=== PATIENT | female | born 1980 | race Caucasian/White ===

== ENCOUNTER 2019-10-13 18:02 | Emergency (ER) | payer SELFPAY ==
[2019-10-13 18:06] VITALS: BP 124/58; PULSE 84; RESP 18; TEMP 36.4; O2SAT 97; BMI 29.0
--- NOTE | 2019-10-13 18:16 | W.ED.ABDPA2 ---
HPI - Abdominal Pain General: Chief Complaint: Abdominal Pain Stated Complaint: abd pain Time Seen by Provider: 10/13/19 18:14 History of Present Illness: HPI narrative: Patient is a 31-year-old female comes to the ED with abdominal pain and nausea. Past surgical history of and tubal ligation. Denies any appendectomy or cholecystectomy. patient says symptoms started today. Abdominal pain is located in the RLQ of the abdomen. She rates the pain currently an 8 out of 10. She has had some nausea since onset of abdominal pain. She does endorse decreased appetite. She is had the chills but no fever. Denies any bladder or bowel symptoms, chest pain or shortness of breath. Associated Symptoms: Reports chills and nausea; Denies constipation, diarrhea, dysuria, fever(s), hematochezia, hematuria and vomiting Review of Systems Const: Reports: chills and change in appetite (decreased appetite); Denies: fever(s) or fatigue Eyes: Denies: change in vision or eye discomfort ENMT: Denies: throat pain, odynophagia, nasal discharge or nasal congestion Card: Denies: chest pain, palpitations, edema, swelling of feet/ankles, dyspnea on exertion or orthopnea Resp: Denies: dyspnea, productive cough or non-productive cough GI: Reports: abdominal pain and nausea; Denies: vomiting, diarrhea, constipation or hematochezia : Denies: flank pain, dysuria or hematuria Musc: Denies: neck pain, back pain or extremity swelling Skin/Breast: Denies: rash or new lesions Neuro: Denies: headache(s), numbness in extremities or weakness in extremities PFS ED PFSH: Social History Smoking and tobacco status: never smoked Alcohol intake: former Physical Exam Const: COMMON NORMALS: no acute distress, patient oriented x3 and alert GENERAL APPEARANCE: cooperative and well hydrated HENMT: COMMON NORMALS: normocephalic HEAD & SCALP: normocephalic MOUTH: Normal oral and palatal mucosa present THROAT: posterior oropharynx normal and uvula midline Eye: COMMON NORMALS: Equal, round and reactive pupils present PUPIL: Yes Equal, round and reactive pupils present Neck/C-Spine: COMMON NORMALS: supple GENERAL: Yes normal visual inspection Lymph: LYMPHATIC: no lymphadenopathy noted (No cervical lymphadenopathy palpated.) Resp: COMMON NORMALS: normal respiratory effort, No retractions, No use of accessory muscles and clear to auscultation bilaterally EFFORT & INSPECTION: Yes able to speak in complete sentences and No respiratory distress AUSCULTATION: clear to auscultation bilaterally Cardio: COMMON NORMALS: regular rate, regular rhythm, S1 normal heart sound present, S2 normal heart sound present, No gallops present (Cardio), No clicks present (Cardio), No murmurs present (Cardio) and Peripheral pulses 2+ throughout RATE: regular rate RHYTHM: regular rhythm HEART SOUNDS: S1 normal heart sound present and S2 normal heart sound present PERIPHERAL PULSES: Peripheral pulses 2+ throughout GI: COMMON NORMALS: Normal to inspection, nondistended, normoactive bowel sounds present, Soft to palpation and no masses AUSCULTATION: Yes normoactive bowel sounds PALPATION: Yes Soft to palpation and Yes Tenderness to palpation present (GI) Details: RLQ (Moderate right lower quadrant tenderness. Positive McBurney's point.) : COMMON NORMALS: Yes no CVA tenderness BLADDER/KIDNEY EXAM: Yes no CVA tenderness Back/Pelvis: COMMON NORMALS: no CVA tenderness Extremity: COMMON NORMALS: normal to inspection and no pedal edema Neuro: COMMON NORMALS: patient oriented x3 SENSORIUM/ORIENTATION: Yes alert GAIT: Yes Normal gait present Skin: COMMON NORMALS: no rashes or lesions noted GENERAL SKIN EXAM: no rashes or lesions noted and dry skin Course Vital Signs: Vital signs: Vital Signs Temperature 97.6 F 10/13/19 18:06 Pulse Rate 74 10/13/19 19:12 Respiratory Rate 17 10/13/19 19:12 Blood Pressure 111/36 10/13/19 19:12 Pulse Oximetry 98 10/13/19 19:12 MDM - Abdominal Pain MDM Narrative: Medical decision making narrative: Patient is a 39-year-old female comes to the ED with abdominal pain and nausea. Abdominal pain was in the right lower quadrant. Positive McBurney's point. CBC showed white blood cell count of 10.7 and CMP and UA were unremarkable. hCG serum was negative as well. CT of the abdomen showed a average of a right ovarian cyst with little free fluid in the pelvis. Patient's pain and nausea improved with IV fluids, Zofran and morphine. Patient was discharged and diagnosed with hemorrhagic right ovarian cyst. Patient will see her PCP and 7 days for reevaluation. Patient was told she can come back to the ED if symptoms worsen. Patient understood and agreed with plan. Lab Data: Attestation: I reviewed the patient's lab results. Labs: Lab Results 10/13/19 10/13/19 10/13/19 Range/Units 18:30 18:30 18:30 WBC 10.7 H (4.0-10.0) 10^3/ uL RBC 4.69 (4.1-5.3) 10^6/u L Hgb 14.1 (11.5-15.3) g/dL Hct 42.4 (37.0-47.0) % MCV 90.4 (81-99) fL MCH 30.1 (28.0-34.0) pg MCHC 33.3 (30.0-36.0) g/dL RDW 13.3 (12.1-15.1) % Plt Count 284 (130-400) 10^3/c mm MPV 10.6 H (7.4-10.4) fL Neut % (Auto) 63.8 % Lymph % (Auto) 28.6 % [place] % (Auto) 6.0 % Eos % (Auto) 0.7 % Baso % (Auto) 0.3 % Neut # (Auto) 6.9 (1.8-7.7) 10^3/u L Lymph # (Auto) 3.1 (0.8-4.8) 10^3/u L [place] # (Auto) 0.6 (0.2-0.9) 10^3/u L Eos # (Auto) 0.1 (0.0-0.8) 10^3/u L Baso # (Auto) 0.0 (0.0-0.1) 10^3/u L Nucleated RBC % (a uto) 0 % Nucleated RBCs # 0.0 /100WBC Sodium 140 (136-145) mmol/L Potassium 4.0 (3.5-5.1) mmol/L Chloride 102 (98-107) mmol/L Carbon Dioxide 24 (22-29) mmol/L Anion Gap 18.0 (5-19) BUN 14 (6-20) mg/dL Creatinine 0.7 (0.5-0.9) mg/dL GFR Calculation 93.6 (90-130) mL/min Glucose 92 (65-115) mg/dL Calculated Osmolal ity 286 (285-295) mOsm/k g Calcium 10.1 (8.5-10.5) mg/dL Total Bilirubin 0.3 (0.15-1.2) mg/dL AST 13 (0-32) U/L ALT 11 (0-33) U/L Alkaline Phosphata se 70 (35-105) IU/L Total Protein 8.0 (6.6-8.7) g/dL Albumin 4.6 (3.5-5.2) g/dL Globulin 3.4 (1.3-4.6) g/dL Lipase 29 (13-60) U/L HCG, Qual Negative (Negative) Urine Color (Yellow) Urine Appearance (CLEAR) Urine pH (5-7) Ur Specific Gravit y (1.005-1.030) Urine Protein (Negative) Urine Glucose (UA) (Normal) Urine Ketones (Negative) Urine Blood (Negative) Urine Nitrate (Negative) Urine Bilirubin (NEGATIVE) Urine Urobilinogen (Negative) mg/dL Ur Leukocyte Soni ase (Negative) Urine RBC (0-2) /hpf Urine WBC (0-5) /hpf Ur Squamous Epith Cells (0-5) Urine Bacteria (NONE) Urine Mucus 10/13/19 Range/Units 19:15 WBC (4.0-10.0) 10^3/ uL RBC (4.1-5.3) 10^6/u L Hgb (11.5-15.3) g/dL Hct (37.0-47.0) % MCV (81-99) fL MCH (28.0-34.0) pg MCHC (30.0-36.0) g/dL RDW (12.1-15.1) % Plt Count (130-400) 10^3/c mm MPV (7.4-10.4) fL Neut % (Auto) % Lymph % (Auto) % [place] % (Auto) % Eos % (Auto) % Baso % (Auto) % Neut # (Auto) (1.8-7.7) 10^3/u L Lymph # (Auto) (0.8-4.8) 10^3/u L [place] # (Auto) (0.2-0.9) 10^3/u L Eos # (Auto) (0.0-0.8) 10^3/u L Baso # (Auto) (0.0-0.1) 10^3/u L Nucleated RBC % (a uto) % Nucleated RBCs # /100WBC Sodium (136-145) mmol/L Potassium (3.5-5.1) mmol/L Chloride (98-107) mmol/L Carbon Dioxide (22-29) mmol/L Anion Gap (5-19) BUN (6-20) mg/dL Creatinine (0.5-0.9) mg/dL GFR Calculation (90-130) mL/min Glucose (65-115) mg/dL Calculated Osmolal ity (285-295) mOsm/k g Calcium (8.5-10.5) mg/dL Total Bilirubin (0.15-1.2) mg/dL AST (0-32) U/L ALT (0-33) U/L Alkaline Phosphata se (35-105) IU/L Total Protein (6.6-8.7) g/dL Albumin (3.5-5.2) g/dL Globulin (1.3-4.6) g/dL Lipase (13-60) U/L HCG, Qual (Negative) Urine Color Yellow (Yellow) Urine Appearance Hazy A (CLEAR) Urine pH 6 (5-7) Ur Specific Gravit y 1.020 (1.005-1.030) Urine Protein Neg (Negative) Urine Glucose (UA) Norm (Normal) Urine Ketones Negative (Negative) Urine Blood 2+ H (Negative) Urine Nitrate Negative (Negative) Urine Bilirubin Neg (NEGATIVE) Urine Urobilinogen Neg (Negative) mg/dL Ur Leukocyte Soni ase Negative (Negative) Urine RBC 0-4 H (0-2) /hpf Urine WBC 0-4 H (0-5) /hpf Ur Squamous Epith Cells 15-25 H (0-5) Urine Bacteria 1+ H (NONE) Urine Mucus 2+ Imaging Data ^: CT Abd/Pel: Attestation: I personally reviewed and interpreted this imaging study as follows: Radiologist's impression: [address] [address] [address] Scan Report Signed Patient: Olga Zavaleta Unit #: [id number] : 1980 Age/Sex: 39 / F ADM Date: 10/13/19 Loc: ER Room/Bed: Attending Dr: Ordering Provider/Ordering MD: Froilan Calhoun Date of Service: 10/13/19 Procedure(s): CT abdomen pelvis w con* [id number] Accession Number(s): [id number] Report Number: [id number] PROCEDURE INFORMATION: Exam: CT Abdomen And Pelvis With Contrast Exam date and time: 10/13/2019 7:33 PM Age: 39 years old Clinical indication: Abdominal pain; Localized; Right lower quadrant (rlq); Patient HX: Rlq/r groin pain and nausea; Additional info: Rlq tenderness with nausea TECHNIQUE: Imaging protocol: Computed tomography of the abdomen and pelvis with intravenous contrast. Radiation optimization: All CT scans at this facility use at least one of these dose optimization techniques: automated exposure control; mA and/or kV adjustment per patient size (includes targeted exams where dose is matched to clinical indication); or iterative reconstruction. Contrast material: OMNI 300; Contrast volume: 95 ml; Contrast route: 20G COMPARISON: CT abdomen pelvis w con* [id number] 10/19/2018 8:22 PM FINDINGS: There is small complex structure in right adnexal region which may represent hemorrhagic ovarian cyst. There is tiny amount of free fluid in the pelvis . There are small rounded hypodense structures in each kidney, most compatible with simple-appearing cysts. No specific follow-up imaging is recommended. Liver, spleen, pancreas, and adrenal glands appear unremarkable. Appendix appears grossly unremarkable. Bowel loops do not appear significantly dilated. Abdominal aorta does not appear dilated. There is small fat-containing umbilical hernia. Visualized lung bases demonstrate no significant opacification. CT/CT abdomen pelvis w con* [id number] IMPRESSION: There is small complex structure in right adnexal region which may represent hemorrhagic ovarian cyst. There is tiny amount of free fluid in the pelvis . Total DLP: 1015.67 mGy-cm Radiation Dose CTDIVOL = (mGy): DLP = 1015.67 (mGy-cm) Dictated By: Forrest Ken MD Signed By: Forrest Ken MD Signed Date/Time: 10/13/192039 DD/ 30 Discharge Plan Discharge Patient Disposition: Home, Self-Care Clinical Impression: Hemorrhagic cyst of right ovary Condition: Stable Prescriptions: No Action methylprednisolone [Medrol (Jose)] 4 mg tablets,dose pack See Rx Instructions PO PER PKG DIR Qty: 21 RF: 0 celecoxib [Celebrex] 200 mg capsule 200 mg PO DAILY Qty: 30 RF: 1 tizanidine 4 mg tablet 4 mg PO .qhs PRN (Reason: muscle spasticity) Qty: 30 RF: 1 Discharge Orders: Discharge Order (Routine); Ordered 10/13/19 Ordered By: Froilan Calhoun Referrals: Mirela Evans MD [Primary Care Provider] - Discharge Diet: Regular Discharge Activity: Increase activity as tolerated Patient Instructions: Ovarian Cyst (ED) Activity Restrictions/Additional Instructions: Call your primary care provider on Wednesday to set up an appointment for reevaluation within the next week. Take ibuprofen or Tylenol for pain. You can apply cold pack on abdomen to help with symptoms. Drink plenty of fluids and stay hydrated. Return to the ED if symptoms worsen. 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
[2019-10-13] MEDS: sodium chloride 0.9% 1,000 ML 999 ML IV (18:32)
[2019-10-13] MEDS: ondansetron 2 mg/ML SDV 2 mL 4 MG IVP (18:33)
[2019-10-13 18:42] LABS: Basophils % 0.3 %; Eosinophils # 0.1 10^3/uL (0.0-0.8); Eosinophils % 0.7 %; Hematocrit 42.4 % (37.0-47.0); Hemoglobin 14.1 g/dL (11.5-15.3); Lymphocytes # 3.1 10^3/uL (0.8-4.8); Lymphocytes % 28.6 %; Mean Corpuscular HGB Conc 33.3 g/dL (30.0-36.0); Mean Corpuscular Hemoglobin 30.1 pg (28.0-34.0); Mean Corpuscular Volume 90.4 fL (81-99); Mean Platelet Volume 10.6 fL (7.4-10.4); Monocytes # 0.6 10^3/uL (0.2-0.9); Neutrophils # 6.9 10^3/uL (1.8-7.7); Neutrophils % 63.8 %; Nucleated Red Blood Cells % 0 %; Platelet Count 284 10^3/cmm (130-400); Red Blood Count 4.69 10^6/uL (4.1-5.3); Red Cell Distribution Width 13.3 % (12.1-15.1); White Blood Count 10.7 10^3/uL (4.0-10.0)
--- NOTE | 2019-10-13 19:01 | CTR_ITS ---
PROCEDURE INFORMATION: Exam: CT Abdomen And Pelvis With Contrast Exam date and time: 10/13/2019 7:33 PM Age: 39 years old Clinical indication: Abdominal pain; Localized; Right lower quadrant (rlq); Patient HX: Rlq/r groin pain and nausea; Additional info: Rlq tenderness with nausea TECHNIQUE: Imaging protocol: Computed tomography of the abdomen and pelvis with intravenous contrast. Radiation optimization: All CT scans at this facility use at least one of these dose optimization techniques: automated exposure control; mA and/or kV adjustment per patient size (includes targeted exams where dose is matched to clinical indication); or iterative reconstruction. Contrast material: OMNI 300; Contrast volume: 95 ml; Contrast route: 20G COMPARISON: CT abdomen pelvis w con* [id number] 10/19/2018 8:22 PM FINDINGS: There is small complex structure in right adnexal region which may represent hemorrhagic ovarian cyst. There is tiny amount of free fluid in the pelvis . There are small rounded hypodense structures in each kidney, most compatible with simple-appearing cysts. No specific follow-up imaging is recommended. Liver, spleen, pancreas, and adrenal glands appear unremarkable. Appendix appears grossly unremarkable. Bowel loops do not appear significantly dilated. Abdominal aorta does not appear dilated. There is small fat-containing umbilical hernia. Visualized lung bases demonstrate no significant opacification. CT/CT abdomen pelvis w con* [id number] IMPRESSION: There is small complex structure in right adnexal region which may represent hemorrhagic ovarian cyst. There is tiny amount of free fluid in the pelvis . Total DLP: 1015.67 mGy-cm Radiation Dose CTDIVOL = (mGy): DLP = 1015.67 (mGy-cm)
[2019-10-13 19:10] VITALS: RESP 18
[2019-10-13] MEDS: morphine 4 mg/mL SDV 1 mL IVP (19:10)
[2019-10-13 19:12] VITALS: BP 111/36; PULSE 74; RESP 17; O2SAT 98
[2019-10-13 19:23] LABS: HCG, Serum Qual Negative (Negative)
[2019-10-13 19:31] LABS: Alanine Aminotransferase 11 U/L (0-33); Albumin Level 4.6 g/dL (3.5-5.2); Alkaline Phosphatase 70 IU/L (35-105); Aspartate Amino Transferase 13 U/L (0-32); Blood Urea Nitrogen 14 mg/dL (6-20); Calcium 10.1 mg/dL (8.5-10.5); Carbon Dioxide 24 mmol/L (22-29); Chloride 102 mmol/L (98-107); Globulin 3.4 g/dL (1.3-4.6); Glomerular Filtration Rate 93.6 mL/min (90-130); Glucose 92 mg/dL (65-115); Lipase 29 U/L (13-60); Osmolality Calculated 286 mOsm/kg (285-295); Sodium 140 mmol/L (136-145); Total Bilirubin 0.3 mg/dL (0.15-1.2)
[2019-10-13] MEDS: iohexol 300 mg/mL 100 mL Btl IV (19:40)
[2019-10-13 19:59] LABS: Urine Appearance Hazy (CLEAR); Urine Color Yellow (Yellow)
[2019-10-13 20:00] LABS: Add Urine Culture? No; Bacteria Urine 1+; Bilirubin Urine Neg (NEGATIVE); Blood Urine 2+ (Negative); Glucose Urine UA Norm (Normal); Ketones Urine Negative (Negative); Leukocyte Esterase Urine Negative (Negative); Mucus Urine 2+; Nitrate Urine Negative (Negative); Protein Urine Neg (Negative); RBC Urine 0-4 /hpf (0-2); Squamous Epithelial Cell Urine 15-25 (0-5); Urobilinogen Urine Neg (Negative); WBC Urine 0-4 /hpf (0-5); pH Urine 6 (5-7)
[2019-10-13 21:00] VITALS: BP 117/69; PULSE 76; RESP 20; O2SAT 99
== END 2019-10-13 21:00 | disposition home or self-care (01) ==
PROVIDERS: Emergency Provider Physician Assistant; PCP Family Medicine
DX: N83.201 Unspecified ovarian cyst, right side (principal)
CPT/HCPCS: 12345; 74177; 80053; 81001; 83690; 84703; 85025; 96361; 96374; 96375; 99282; 99283; J2270; J2405; J7030; Q9967

== ENCOUNTER 2019-11-01 14:35 | Emergency (ER) | payer SELFPAY ==
[2019-11-01 14:42] VITALS: BP 121/83; PULSE 80; RESP 16; TEMP 36.6; O2SAT 97; BMI 29.0
--- NOTE | 2019-11-01 15:18 | US_ITS ---
WS: [id number] TRANSABDOMINAL PELVIC AND TRANSVAGINAL PELVIC ULTRASOUND HISTORY: Pain COMPARISON: None available. Uterus: 9.3 cm x 7.4 cm x 5.1 cm. Normal size uterus is slightly retroflexed. No fibroid or mass. Endometrium: 0.8 cm. Normal homogeneity. No mass. Right ovary: 3.5 cm x 3.8 cm x 2.6 cm. Minimally complex follicle associated with the RIGHT ovary wit h a maximum diameter of 2.3 cm. No solid mass. Left ovary: 2.0 cm x 2.4 cm x 1.5 cm. Small follicles with no mass. Normal vascularity. No free fluid identified. US/US pelvic with transvaginal IMPRESSION: 1. Normal endometrium. 2. No abnormality.
--- NOTE | 2019-11-01 15:18 | US_ITS ---
NOTE: Report was unsigned for reason: Order was edited. Original Signature date and time was: 11/01/19 1541 WS: [id number] RENAL ULTRASOUND Urinary bladder ultrasound HISTORY: Pain COMPARISON: CT abdomen 10/13/2019 TECHNIQUE: 2-D and color Doppler imaging of the kidney submitted. Right kidney: 11.0 cm x 6.1 cm x 4.6 cm. Normal echogenicity with no hydronephrosis or mass. Left kidney: 11.0 cm x 5.1 cm x 5.5 cm. Normal echogenicity with no hydronephrosis or mass. Aorta: Normal. Urinary Bladder: Nondistended urinary bladder. No free fluid in the pelvis. [facility] US/US renal BI with bladder IMPRESSION: Normal renal ultrasound.
--- NOTE | 2019-11-01 15:28 | W.ED.GENADLT ---
HPI - General Adult General: Chief complaint: General Medical Stated complaint: back/kidney pain Time Seen by Provider: 11/01/19 14:59 Source: patient and EMS Mode of arrival: EMS History of Present Illness: HPI narrative: She is a 39-year-old female who comes in complaining of bilateral lower flank pain. She also has mild lower abdominal pain. She states she is having vaginal discharge but denies vaginal bleeding. She denies any fevers or chills. She denies any urinary symptoms. She is unaware of anything that makes her pain better or worse. Associated symptoms: Reports nausea; Deny chest pain, confusion, diaphoresis, dyspnea, headache(s), malaise, rash, palpitations, syncope or vomiting Review of Systems Const: Denies: fever(s), chills, body aches, fatigue, malaise or diaphoresis Eyes: Denies: change in vision, blurry vision, blind spots, photophobia, eye discharge or eye redness ENMT: Denies: throat pain, odynophagia, hoarseness, swelling of lips/tongue, oral sores, ear or mastoid pain, ear discharge, change in hearing or nasal discharge Card: Denies: chest pain, palpitations, irregular heart rhythm, edema, lightheadedness, syncope, pre-syncope, dyspnea on exertion or orthopnea Resp: Denies: dyspnea, productive cough, non-productive cough, wheezing, hemoptysis or chest congestion GI: Reports: abdominal pain and nausea; Denies: vomiting, hematemesis, coffee ground emesis, heartburn, diarrhea, constipation, GI cramping, hematochezia or melena : Denies: dysuria, urinary frequency, urinary urgency or hematuria Musc: Denies: neck pain, extremity pain, extremity swelling, joint pain, joint swelling, joint redness, joint warmth or joint stiffness Skin/Breast: Denies: rash, pruritus, erythema, skin tenderness or jaundice Neuro: Denies: headache(s), numbness in extremities, weakness in extremities, sensory changes, lack of coordination, difficulty walking, dizziness, vertigo, confusion, Slurred speech present or seizure-like activity Ezequiel/Lymph: Denies: easy bruising, easy bleeding, petechiae, purpura or enlarged lymph nodes All/Imm: Denies: urticaria, throat swelling, tongue swelling, facial swelling or acute wheezing PFSH ED PFSH: Medical History No pertinent past medical history Surgical History No history of previous surgery Social History Smoking and tobacco status: never smoked Alcohol intake: former Physical Exam Const: COMMON NORMALS: no acute distress, patient oriented x3, no limitations, healthy appearing and well nourished GENERAL APPEARANCE: cooperative, well kempt and well developed HENMT: COMMON NORMALS: normocephalic, atraumatic, external ears normal, EAC's normal and Normal external nose present HEAD & SCALP: normal to inspection, normocephalic and atraumatic FACE & SINUS: normal facial exam and face symmetric NOSE: Normal external nose present and Normal nares present EXTERNAL EAR: Yes external ears normal EXTERNAL AUDITORY CANAL: EAC's normal MOUTH: Normal oral and palatal mucosa present, lip normal and tongue normal Eye: COMMON NORMALS: Equal, round and reactive pupils present and conjunctivae normal GENERAL EYE: appearance normal, both eyes and all related structures ALIGNMENT: Yes alignment normal PERIORBITAL: periorbital findings normal EYELID: eyelids normal CONJUNCTIVA: Yes conjunctivae normal SCLERA: sclerae normal PUPIL: Yes Equal, round and reactive pupils present Neck/C-Spine: COMMON NORMALS: full ROM, no lymphadenopathy, supple, no meningeal signs and no JVD GENERAL: Yes normal visual inspection and Yes trachea midline Chest: COMMONS NORMALS: normal inspection of the chest and normal palpation of entire chest wall Resp: COMMON NORMALS: normal respiratory effort, No retractions and No use of accessory muscles EFFORT & INSPECTION: Yes able to speak in complete sentences and Yes symmetric chest movement AUSCULTATION: no crackles, no rales, no rhonchi and no wheezes Cardio: COMMON NORMALS: no JVD, regular rate, regular rhythm, S1 normal heart sound present and S2 normal heart sound present RATE: regular rate RHYTHM: regular rhythm HEART SOUNDS: S1 normal heart sound present, S2 normal heart sound present, no click, no gallops, no murmurs, no rubs and abnormal split S2 GI: COMMON NORMALS: Soft to palpation and No hepatosplenomegaly present PALPATION: Yes Soft to palpation, No Tenderness to palpation present (GI), No Guarding due to palpation present (GI), No Rigid due to palpation, Yes No hepatosplenomegaly present, No Hernia present, No Palpable mass present and No Pulsatile mass present : COMMON NORMALS: Yes no CVA tenderness BLADDER/KIDNEY EXAM: Yes no CVA tenderness EXTERNAL FEMALE EXAM: No Hernia present Back/Pelvis: COMMON NORMALS: no CVA tenderness, thoracic and lumbar spine normal to inspection, no thoracic nor lumbar tenderness and thoraco-lumbar ROM normal Extremity: COMMON NORMALS: normal to inspection, full ROM, capillary refill normal, no joint enlargement, no clubbing, cyanosis or edema and no calf tenderness Neuro: COMMON NORMALS: patient oriented x3, CN's II-XII intact bilaterally, moves all extremities, no focal motor deficits and no sensory deficits noted MENINGEAL SIGNS: Yes no meningeal signs SPEECH: speech normal Psych: COMMON NORMALS: mental status grossly normal, Normal thought process present, cooperative, normal affect, speech normal and activity/motor behavior normal APPEARANCE: Yes well kempt SPEECH: Yes normal speech THOUGHT PROCESS: Normal thought process present Skin: COMMON NORMALS: no rashes or lesions noted, turgor normal, no jaundice, no petechiae and no mottling GENERAL SKIN EXAM: no rashes or lesions noted and turgor normal Course Vital Signs: Vital signs: Vital Signs Temperature 97.8 F 11/01/19 14:42 Pulse Rate 66 11/01/19 17:38 Respiratory Rate 16 11/01/19 17:38 Blood Pressure 112/64 11/01/19 17:38 Pulse Oximetry 97 11/01/19 17:38 MDM - General Adult MDM Narrative: Medical decision making narrative: Danielle is a nice 39-year-old female who comes in complaining of low back and lower abdominal pain. There is no evidence of kidney stone, there is no pelvic infection and her CT scan shows fecal is of the small bowel. I reviewed this with Dr. Novak thinks this is likely from chronic constipation. Patient claims to be having regular bowel movements but I see no sign of peritonitis or acute life-threatening abdominal problem. Her back exam was unremarkable. I see no evidence of epidural abscess or acute cord Compressive type syndrome. Patient is relieved and would like to go home. She does agree to return should her symptoms change or worsen but at this time she is feeling better would like to be discharged. Lab Data: Labs: Lab Results 11/01/19 11/01/19 11/01/19 Range/Units 16:08 16:08 16:08 WBC 7.5 (4.0-10.0) 10^3/ uL RBC 5.40 H (4.1-5.3) 10^6/u L Hgb 15.9 H (11.5-15.3) g/dL Hct 48.2 H (37.0-47.0) % MCV 89.3 (81-99) fL MCH 29.4 (28.0-34.0) pg MCHC 33.0 (30.0-36.0) g/dL RDW 13.0 (12.1-15.1) % Plt Count 254 (130-400) 10^3/c mm MPV 10.5 H (7.4-10.4) fL Neut % (Auto) 60.6 % Lymph % (Auto) 31.8 % Caswell % (Auto) 5.2 % Eos % (Auto) 1.7 % Baso % (Auto) 0.4 % Neut # (Auto) 4.5 (1.8-7.7) 10^3/u L Lymph # (Auto) 2.4 (0.8-4.8) 10^3/u L Caswell # (Auto) 0.4 (0.2-0.9) 10^3/u L Eos # (Auto) 0.1 (0.0-0.8) 10^3/u L Baso # (Auto) 0.0 (0.0-0.1) 10^3/u L Nucleated RBC % (a uto) 0 % Nucleated RBCs # 0.0 /100WBC Sodium 137 (136-145) mmol/L Potassium 4.2 (3.5-5.1) mmol/L Chloride 101 (98-107) mmol/L Carbon Dioxide 24 (22-29) mmol/L Anion Gap 16.2 (5-19) BUN 11 (6-20) mg/dL Creatinine 0.6 (0.5-0.9) mg/dL GFR Calculation 111.9 (90-130) mL/min Glucose 85 (65-115) mg/dL Calculated Osmolal ity 279 L (285-295) mOsm/k g Calcium 9.6 (8.5-10.5) mg/dL Total Bilirubin 0.6 (0.15-1.2) mg/dL AST 13 (0-32) U/L ALT 12 (0-33) U/L Alkaline Phosphata se 69 (35-105) IU/L Total Protein 7.6 (6.6-8.7) g/dL Albumin 5.0 (3.5-5.2) g/dL Globulin 2.6 (1.3-4.6) g/dL Lipase 26 (13-60) U/L HCG, Qual Negative (Negative) Urine Color (Yellow) Urine Appearance (CLEAR) Urine pH (5-7) Ur Specific Gravit y (1.005-1.030) Urine Protein (Negative) Urine Glucose (UA) (Normal) Urine Ketones (Negative) Urine Blood (Negative) Urine Nitrate (Negative) Urine Bilirubin (NEGATIVE) Urine Urobilinogen (Negative) mg/dL Ur Leukocyte Soni ase (Negative) Urine RBC (0-2) /hpf Urine WBC (0-5) /hpf Ur Squamous Epith Cells (0-5) Urine Bacteria (NONE) Urine Mucus 11/01/19 Range/Units 17:11 WBC (4.0-10.0) 10^3/ uL RBC (4.1-5.3) 10^6/u L Hgb (11.5-15.3) g/dL Hct (37.0-47.0) % MCV (81-99) fL MCH (28.0-34.0) pg MCHC (30.0-36.0) g/dL RDW (12.1-15.1) % Plt Count (130-400) 10^3/c mm MPV (7.4-10.4) fL Neut % (Auto) % Lymph % (Auto) % Caswell % (Auto) % Eos % (Auto) % Baso % (Auto) % Neut # (Auto) (1.8-7.7) 10^3/u L Lymph # (Auto) (0.8-4.8) 10^3/u L Caswell # (Auto) (0.2-0.9) 10^3/u L Eos # (Auto) (0.0-0.8) 10^3/u L Baso # (Auto) (0.0-0.1) 10^3/u L Nucleated RBC % (a uto) % Nucleated RBCs # /100WBC Sodium (136-145) mmol/L Potassium (3.5-5.1) mmol/L Chloride (98-107) mmol/L Carbon Dioxide (22-29) mmol/L Anion Gap (5-19) BUN (6-20) mg/dL Creatinine (0.5-0.9) mg/dL GFR Calculation (90-130) mL/min Glucose (65-115) mg/dL Calculated Osmolal ity (285-295) mOsm/k g Calcium (8.5-10.5) mg/dL Total Bilirubin (0.15-1.2) mg/dL AST (0-32) U/L ALT (0-33) U/L Alkaline Phosphata se (35-105) IU/L Total Protein (6.6-8.7) g/dL Albumin (3.5-5.2) g/dL Globulin (1.3-4.6) g/dL Lipase (13-60) U/L HCG, Qual (Negative) Urine Color Yellow (Yellow) Urine Appearance Clear (CLEAR) Urine pH 6.5 (5-7) Ur Specific Gravit y 1.010 (1.005-1.030) Urine Protein Neg (Negative) Urine Glucose (UA) Norm (Normal) Urine Ketones Negative (Negative) Urine Blood Neg (Negative) Urine Nitrate Negative (Negative) Urine Bilirubin Neg (NEGATIVE) Urine Urobilinogen Neg (Negative) mg/dL Ur Leukocyte Soni ase Negative (Negative) Urine RBC None (0-2) /hpf Urine WBC None (0-5) /hpf Ur Squamous Epith Cells 15-25 H (0-5) Urine Bacteria Trace (NONE) Urine Mucus 2+ Imaging Data^: US Renal: My impression: Tech interpretation -no hydronephrosis, no other acute abnormalities. US Pelvis: My impression: Tech interpretation -no acute abnormalities CT Abd/Pel: Radiologist's impression: [address] [address] [address] Scan Report Signed Patient: Olga Zavaleta Unit #: [id number] : 1980 Age/Sex: 39 / F ADM Date: 11/01/19 Loc: ER Room/Bed: Attending Dr: Ordering Provider/Ordering MD: Marilia Benitez DO Date of Service: 11/01/19 Procedure(s): CT abdomen pelvis w con* [id number] Accession Number(s): [id number] Report Number: [id number] PROCEDURE INFORMATION: Exam: CT Abdomen And Pelvis With Contrast Exam date and time: 11/01/2019 4:59 PM Age: 39 years old Clinical indication: Abdominal pain; Prior surgery; Surgery type: C-sec, tubal; Patient HX: Cervical CA TECHNIQUE: Imaging protocol: Computed tomography of the abdomen and pelvis with intravenous contrast. Radiation optimization: All CT scans at this facility use at least one of these dose optimization techniques: automated exposure control; mA and/or kV adjustment per patient size (includes targeted exams where dose is matched to clinical indication); or iterative reconstruction. Contrast material: OMNI 300; Contrast volume: 95 ml; Contrast route: INTRAVENOUS (IV); COMPARISON: CT abdomen pelvis w con* [id number] 10/13/2019 7:31 PM RADIATION DOSE METRICS: Total DLP (mGy-cm): 869.93 FINDINGS: Lungs: Limited assessment lung bases fails to reveal evidence for active cardiopulmonary process. Liver: Hepatomegaly at 22.4 cm. No visible hepatic mass or cystic structure. Gallbladder and bile ducts: Normal. No calcified stones. No ductal dilation. Pancreas: Normal. No ductal dilation. Spleen: Normal. No splenomegaly. Adrenals: Normal. No mass. Kidneys and ureters: Simple bilateral small renal cortical cysts stable. No follow-up recommended. No hydronephrosis or perinephric fluid. Stomach and bowel: Nonobstructive bowel pattern. No visible diverticulosis coli or diverticulitis. There is evidence of fecalization of the small bowel chyme in the proximal jejunal loops without small bowel ectasia or other visible evidence of bowel obstruction. This may be secondary to low-grade focal adynamic or reactive ileus. No visible mucosal abnormality or increased mucosal enhancement. Appendix: The appendix is noninflamed. Intraperitoneal space: No free fluid in the cul-de-sac. No generalized ascites. No visible mesenteritis/panniculitis or mesenteric lymphadenitis. Vasculature: Unremarkable. No abdominal aortic aneurysm. Lymph nodes: Unremarkable. No enlarged lymph nodes. Bladder: Unremarkable as visualized. Reproductive: Simple bilateral ovarian cysts dominant on the right measuring 14 mm. No follow-up recommended. Bones/joints: No visible active or acute osseous pathology. Soft tissues: Unremarkable. CT/CT abdomen pelvis w con* [id number] IMPRESSION: 1. There is evidence of fecalization of the small bowel chyme in the proximal jejunal loops without small bowel ectasia or other visible evidence of bowel obstruction. This may be secondary to low-grade focal adynamic or reactive ileus. 2. Hepatomegaly. Radiation Dose CTDIVOL = (mGy): DLP = 869.93 (mGy-cm) Dictated By: Lester Hendrickson Signed By: Lester Hendrickson Signed Date/Time: 11/01/191745 DD/ 44 Discharge Plan Discharge Patient Disposition: Home, Self-Care Clinical Impression: Abdominal pain Qualifiers: Abdominal location: generalized Qualified Code(s): R10.84 - Generalized abdominal pain Condition: Stable Prescriptions: New lactulose 10 gram packet 10 gm PO DAILY Qty: 15 RF: 0 Discharge Orders: Discharge Order (Routine); Ordered 11/01/19 Ordered By: Marilia Benitez Referrals: Cam Novak MD [Physician] - 4-7 days Mirela Evans MD [Primary Care Provider] - 1-3 days Discharge Diet: Advance as tolerated and Clear Liquid Discharge Activity: Increase activity as tolerated Patient Instructions: Abdominal Pain (ED) Activity Restrictions/Additional Instructions: Please return to the ER immediately for any of the signs or symptoms listed on your discharge instruction sheets, worsening/changing of your symptoms, you are not getting better as quickly as expected, or for ANY other cause or concerns. Return to the ER if your pain worsens, you develop fever, began to vomit, or you have any other cause for concern. Be certain to follow-up with your doctor for recheck and with Dr. Novak for possible further evaluation of this ongoing pain. 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
[2019-11-01 16:17] LABS: Basophils % 0.4 %; Eosinophils # 0.1 10^3/uL (0.0-0.8); Eosinophils % 1.7 %; Hematocrit 48.2 % (37.0-47.0); Hemoglobin 15.9 g/dL (11.5-15.3); Lymphocytes # 2.4 10^3/uL (0.8-4.8); Lymphocytes % 31.8 %; Mean Corpuscular Hemoglobin 29.4 pg (28.0-34.0); Mean Corpuscular Volume 89.3 fL (81-99); Mean Platelet Volume 10.5 fL (7.4-10.4); Monocytes # 0.4 10^3/uL (0.2-0.9); Monocytes % 5.2 %; Neutrophils # 4.5 10^3/uL (1.8-7.7); Neutrophils % 60.6 %; Nucleated Red Blood Cells % 0 %; Platelet Count 254 10^3/cmm (130-400); White Blood Count 7.5 10^3/uL (4.0-10.0)
[2019-11-01 16:18] VITALS: RESP 18; O2SAT 99
[2019-11-01] MEDS: ondansetron 2 mg/ML SDV 2 mL 4 MG IVP (16:18)
[2019-11-01] MEDS: sodium chloride 0.9% 1,000 ML 100 ML IV (16:18)
[2019-11-01] MEDS: morphine 4 mg/mL SDV 1 mL IVP (16:18)
[2019-11-01 16:29] VITALS: BP 114/63; PULSE 70; RESP 16; O2SAT 99
--- NOTE | 2019-11-01 16:34 | CTR_ITS ---
PROCEDURE INFORMATION: Exam: CT Abdomen And Pelvis With Contrast Exam date and time: 11/01/2019 4:59 PM Age: 39 years old Clinical indication: Abdominal pain; Prior surgery; Surgery type: C-sec, tubal; Patient HX: Cervical CA TECHNIQUE: Imaging protocol: Computed tomography of the abdomen and pelvis with intravenous contrast. Radiation optimization: All CT scans at this facility use at least one of these dose optimization techniques: automated exposure control; mA and/or kV adjustment per patient size (includes targeted exams where dose is matched to clinical indication); or iterative reconstruction. Contrast material: OMNI 300; Contrast volume: 95 ml; Contrast route: INTRAVENOUS (IV); COMPARISON: CT abdomen pelvis w con* [id number] 10/13/2019 7:31 PM RADIATION DOSE METRICS: Total DLP (mGy-cm): 869.93 FINDINGS: Lungs: Limited assessment lung bases fails to reveal evidence for active cardiopulmonary process. Liver: Hepatomegaly at 22.4 cm. No visible hepatic mass or cystic structure. Gallbladder and bile ducts: Normal. No calcified stones. No ductal dilation. Pancreas: Normal. No ductal dilation. Spleen: Normal. No splenomegaly. Adrenals: Normal. No mass. Kidneys and ureters: Simple bilateral small renal cortical cysts stable. No follow-up recommended. No hydronephrosis or perinephric fluid. Stomach and bowel: Nonobstructive bowel pattern. No visible diverticulosis coli or diverticulitis. There is evidence of fecalization of the small bowel chyme in the proximal jejunal loops without small bowel ectasia or other visible evidence of bowel obstruction. This may be secondary to low-grade focal adynamic or reactive ileus. No visible mucosal abnormality or increased mucosal enhancement. Appendix: The appendix is noninflamed. Intraperitoneal space: No free fluid in the cul-de-sac. No generalized ascites. No visible mesenteritis/panniculitis or mesenteric lymphadenitis. Vasculature: Unremarkable. No abdominal aortic aneurysm. Lymph nodes: Unremarkable. No enlarged lymph nodes. Bladder: Unremarkable as visualized. Reproductive: Simple bilateral ovarian cysts dominant on the right measuring 14 mm. No follow-up recommended. Bones/joints: No visible active or acute osseous pathology. Soft tissues: Unremarkable. CT/CT abdomen pelvis w con* [id number] IMPRESSION: 1. There is evidence of fecalization of the small bowel chyme in the proximal jejunal loops without small bowel ectasia or other visible evidence of bowel obstruction. This may be secondary to low-grade focal adynamic or reactive ileus. 2. Hepatomegaly. Radiation Dose CTDIVOL = (mGy): DLP = 869.93 (mGy-cm)
[2019-11-01 16:43] LABS: HCG, Serum Qual Negative (Negative)
[2019-11-01 16:47] LABS: Alanine Aminotransferase 12 U/L (0-33); Alkaline Phosphatase 69 IU/L (35-105); Anion Gap 16.2 (5-19); Aspartate Amino Transferase 13 U/L (0-32); Blood Urea Nitrogen 11 mg/dL (6-20); Calcium 9.6 mg/dL (8.5-10.5); Carbon Dioxide 24 mmol/L (22-29); Chloride 101 mmol/L (98-107); Globulin 2.6 g/dL (1.3-4.6); Glomerular Filtration Rate 111.9 mL/min (90-130); Glucose 85 mg/dL (65-115); Lipase 26 U/L (13-60); Osmolality Calculated 279 mOsm/kg (285-295); Potassium 4.2 mmol/L (3.5-5.1); Sodium 137 mmol/L (136-145); Total Bilirubin 0.6 mg/dL (0.15-1.2); Total Protein 7.6 g/dL (6.6-8.7)
[2019-11-01] MEDS: iohexol 300 mg/mL 100 mL Btl IV (17:20)
[2019-11-01 17:38] VITALS: BP 112/64; PULSE 66; RESP 16; O2SAT 97
[2019-11-01 17:46] LABS: Bilirubin Urine Neg (NEGATIVE); Blood Urine Neg (Negative); Glucose Urine UA Norm (Normal); Ketones Urine Negative (Negative); Leukocyte Esterase Urine Negative (Negative); Nitrate Urine Negative (Negative); Protein Urine Neg (Negative); Squamous Epithelial Cell Urine 15-25 (0-5); Urine Appearance Clear (CLEAR); Urine Color Yellow (Yellow); Urobilinogen Urine Neg (Negative); pH Urine 6.5 (5-7)
[2019-11-01 17:47] LABS: Add Urine Culture? No; Bacteria Urine TRACE; Mucus Urine 2+
[2019-11-01] MEDS: lactulose oral liq 20 gm/30 mL UDC 30 GM PO (18:40)
[2019-11-01 18:44] VITALS: BP 112/53; PULSE 84; RESP 16; O2SAT 100
--- NOTE | 2019-11-02 10:31 | DCPLANNER ---
manager regional had message to schedule a follow up appointment for patient with general surgery. manager regional called [facility], spoke with Cheryl. manager regional was told that patients information would be printed and reviewed. Clinic will call patient with appointment information.
--- NOTE | 2019-11-07 09:25 | DCPLANNER ---
Patient has a follow up appointment scheduled for Thursday, November 14, 2019 at 1:[address] Novak. Clinic will call patient with appointment information.
--- NOTE | 2019-11-17 15:04 | DCPLANNER ---
Patient did not attend appointment scheduled for 11.14.19 with [facility].
== END 2019-11-01 18:52 | disposition home or self-care (01) ==
PROVIDERS: Nurse Practitioner Family; Emergency Provider Emergency Medicine; PCP Family Medicine
DX: R10.84 Generalized abdominal pain (principal)
CPT/HCPCS: 12345; 36415; 74177; 76770; 76830; 76856; 76857; 80053; 81001; 83690; 84703; 85025; 87210; 96361; 96374; 96375; 99284; J2270; J2405; J7030; Q9967

== ENCOUNTER → 2019-11-28 18:00 | Outpatient (BNVA) | payer SELFPAY | PROVIDERS: PCP Family Medicine; Visit Provider Family Medicine | DX: K25.9 Gastric ulcer, unspecified as acute or chronic, without hemorrhage or perforation (principal); K59.00 Constipation, unspecified; N89.8 Other specified noninflammatory disorders of vagina | CPT/HCPCS: 87491; 87591; 87661 ==

== ENCOUNTER → 2020-01-25 15:04 | Outpatient (BNVA) | payer SELFPAY | PROVIDERS: PCP Family Medicine; Visit Provider Nurse Practitioner Family | DX: R10.9 Unspecified abdominal pain (principal) | CPT/HCPCS: 80053; 81003; 81025; 85025 ==

== ENCOUNTER → 2020-01-30 11:35 | Outpatient (BNVA) | payer SELFPAY | PROVIDERS: PCP Family Medicine; Visit Provider Nurse Practitioner Family | DX: M54.2 Cervicalgia (principal); M54.6 Pain in thoracic spine; G89.29 Other chronic pain; M25.511 Pain in right shoulder | CPT/HCPCS: 72040; 72072; 73030 ==

== ENCOUNTER → 2020-01-31 17:46 | Outpatient (BNVA) | payer OTHER, SELFPAY | PROVIDERS: PCP Family Medicine; Visit Provider Nurse Practitioner Family | DX: Z20.828 Contact with and (suspected) exposure to other viral communicable diseases (principal); J06.9 Acute upper respiratory infection, unspecified | CPT/HCPCS: 87635 ==

== ENCOUNTER 2020-02-26 07:26 | Outpatient (CLI) | payer SELFPAY ==
--- NOTE | 2020-02-26 08:00 | NM_ITS ---
WS: [id number] NUCLEAR MEDICINE HIDA SCAN CLINICAL INFORMATION: right upper quadrant pain TECHNIQUE: Following intravenous administration of 8.1 mCi of technetium 99m mebrofenin, images of th e abdomen were obtained over the course of 60 minutes. Next, gallbladder ejection fraction was determ ined by obtaining preprandial and one-hour postprandial images of the gallbladder following oral phu stion of Ensure. COMPARISON: None. FINDINGS: Normal hepatic uptake at 5 minutes. Hepatomegaly. Gallbladder is visualized by 10 to 15 minutes. No e vidence of acute cholecystitis. Common bile duct is normal. Normal small bowel activity. No evidence of choledocholithiasis. Gallbladder ejection fraction 82% within normal limits. No evidence of chronic cholecystitis. NM/NM hepatobiliary w phar* [id number] IMPRESSION: 1. No evidence of acute or chronic cholecystitis. 2. Normal gallbladder ejection fraction 82%. 3. Hepatomegaly.
== END 2020-02-26 07:27 | disposition home or self-care (01) ==
PROVIDERS: PCP Family Medicine; Visit Provider Surgery
DX: R10.11 Right upper quadrant pain (principal); R16.0 Hepatomegaly, not elsewhere classified
CPT/HCPCS: 78227; A9537

== ENCOUNTER → 2020-04-26 18:29 | Outpatient (BNVA) | payer SELFPAY | PROVIDERS: PCP Family Medicine; Visit Provider Nurse Practitioner | DX: J02.0 Streptococcal pharyngitis (principal) | CPT/HCPCS: 87071; 87880 ==

== ENCOUNTER → 2020-04-27 14:11 | Outpatient (BNVA) | payer SELFPAY | PROVIDERS: PCP Family Medicine; Visit Provider Nurse Practitioner | DX: B34.9 Viral infection, unspecified (principal) | CPT/HCPCS: 87635 ==

== ENCOUNTER 2020-06-05 19:25 | Emergency (ER) | payer SELFPAY ==
[2020-06-05 19:33] VITALS: BP 111/78; PULSE 121; RESP 20; TEMP 36.8; O2SAT 98; BMI 30.7
[2020-06-05 19:36] VITALS: BP 119/75; O2SAT 99
--- NOTE | 2020-06-05 19:48 | ECG_ITS ---
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 Measurements Intervals [place] Rate: 109 P: 51 DC: 137 QRS: 14 QRSD: 87 T: 10 QT: 306 QTc: 413 Interpretive Statements SINUS TACHYCARDIA ABNORMAL RHYTHM ECG Compared to ECG 10/19/2018 19:58:48 Sinus rhythm no longer present Electronically Signed On 06-06-2020 18:01:23 SECURITY CONTROL CENTER OPERATOR by Allen Khan M.D. [id number]
--- NOTE | 2020-06-05 19:48 | XR_ITS ---
WS: [id number] Exam: XR shoulder RT min 2V* [id number] Date/Time of Exam: 06/05/2020 7:53 PM Reason For Exam: shoulder pain The projections of the shoulder reveal no fractures, anomalies, soft tissue swelling, or calcificatio ns. There is normal bony alignment. No irregularity of the bony architecture is noted. XR/XR shoulder RT min 2V* [id number] IMPRESSION: Negative right shoulder.
--- NOTE | 2020-06-05 19:48 | XRR_ITS ---
PROCEDURE INFORMATION: Exam: XR Chest, 1 View Exam date and time: 06/05/2020 7:53 PM Age: 40 years old Clinical indication: Chest pain; Additional info: Chest pain, pain in right shoulder radiating to neck. TECHNIQUE: Imaging protocol: XR of the chest Views: 1 view. COMPARISON: CR Chest 1 [place] [id number] 10/19/2018 8:25 PM FINDINGS: Lungs: Unremarkable. No consolidation. Pleural spaces: Unremarkable. No pleural effusion. No pneumothorax. Heart/Mediastinum: Unremarkable. No cardiomegaly. Bones/joints: Unremarkable. XR/XR chest 1V portable [id number] IMPRESSION: No change, unremarkable
--- NOTE | 2020-06-05 19:50 | W.ED.EXTPRO ---
HPI - Extremity Problem General: Chief complaint: Extremity Injury, Upper Stated complaint: pain/numbness in rt shoulder and arm Time Seen by Provider: 06/05/20 19:39 History of Present Illness: HPI Narrative: Patient is a 40-year-old female comes to the ED with right shoulder and arm pain. symptoms started approximately 5 days ago. She says pain starts in the back of her shoulder and radiates down to her upper right arm. Patient states she has had this right shoulder pain before and she was diagnosed with a muscle strain then. Just prior to right shoulder pain she was lifting and moving some heavy objects around her house and she thinks that is what caused the shoulder pain. She also complains of some mild midsternal chest pain. Patient rates her pain in her right shoulder a 10 out of 10. Denies any shortness of breath, heart palpitations, cardiac history, nausea/vomiting, abdominal pain, bladder or bowel symptoms. Associated symptoms: Reports chest pain; Deny fever(s) or rash Review of Systems Const: Denies: fever(s), chills or fatigue Eyes: Denies: change in vision or eye discomfort ENMT: Denies: throat pain, odynophagia, nasal discharge or nasal congestion Card: Reports: chest pain; Denies: palpitations, edema, swelling of feet/ankles, dyspnea on exertion or orthopnea Resp: Denies: dyspnea, productive cough or non-productive cough GI: Denies: abdominal pain, nausea, vomiting, diarrhea, constipation or hematochezia : Denies: flank pain, dysuria or hematuria Musc: Reports: back pain (right upper back) and extremity pain (right shoulder pain); Denies: neck pain or extremity swelling Skin/Breast: Denies: rash or new lesions Neuro: Denies: headache(s), numbness in extremities or weakness in extremities PFSH ED PFSH: Medical History No pertinent past medical history Surgical History No history of previous surgery Family History Denies family history of Anesthesia complication Bleeding disorder Social History Smoking and tobacco status: never smoked Second hand smoke exposure: Yes Alcohol intake: former Lives independently: Yes Household members: children Marital status: History of recent travel: No Current gender identity: Female Female Reproductive History: Date of last menstrual period: 11/21/19 Physical Exam Const: COMMON NORMALS: no acute distress, patient oriented x3 and alert GENERAL APPEARANCE: cooperative and comfortable HENMT: COMMON NORMALS: normocephalic HEAD & SCALP: normocephalic MOUTH: Normal oral and palatal mucosa present THROAT: posterior oropharynx normal and uvula midline Eye: COMMON NORMALS: Equal, round and reactive pupils present PUPIL: Yes Equal, round and reactive pupils present Neck/C-Spine: COMMON NORMALS: supple GENERAL: Yes normal visual inspection Resp: COMMON NORMALS: normal respiratory effort, No retractions, No use of accessory muscles and clear to auscultation bilaterally AUSCULTATION: clear to auscultation bilaterally Cardio: COMMON NORMALS: regular rate, regular rhythm, S1 normal heart sound present, S2 normal heart sound present, No gallops present (Cardio), No clicks present (Cardio), No murmurs present (Cardio) and Peripheral pulses 2+ throughout RATE: regular rate RHYTHM: regular rhythm HEART SOUNDS: S1 normal heart sound present and S2 normal heart sound present PERIPHERAL PULSES: Peripheral pulses 2+ throughout GI: COMMON NORMALS: Normal to inspection, nondistended, normoactive bowel sounds present, Soft to palpation, non-tender and no masses PALPATION: Yes Soft to palpation : COMMON NORMALS: Yes no CVA tenderness BLADDER/KIDNEY EXAM: Yes no CVA tenderness Back/Pelvis: COMMON NORMALS: no CVA tenderness THORACIC SPINE/UPPER BACK: Yes paraspinal muscle tenderness Thoracic paraspinal muscle tenderness: right Right thoracic paraspinal muscle tenderness: T5 and Yes other soft tissue findings Other thoracic soft tissue findings laterality: right Right other thoracic soft tissue findings details: tenderness (Right shoulder blade region) Extremity: COMMON NORMALS: normal to inspection and no pedal edema Neuro: COMMON NORMALS: patient oriented x3 and moves all extremities SENSORIUM/ORIENTATION: Yes alert Skin: GENERAL SKIN EXAM: dry skin Course Vital Signs: Vital signs: Vital Signs Temperature 98.3 F 06/05/20 19:33 Pulse Rate 108 H 06/05/20 21:48 Respiratory Rate 18 06/05/20 21:48 Blood Pressure 116/73 06/05/20 21:48 Pulse Oximetry 96 06/05/20 21:48 MDM - Extremity (Nontraumatic) MDM Narrative: Medical decision making narrative: Patient is a 40-year-old female comes to the ED with right shoulder and right upper back pain that has been going on for the past 5 days. Patient says pain started after she was lifting and moving some items in her house. She also said she was having some mild chest pain. Patient has some upper back right-sided soft tissue tenderness over right shoulder blade-likely due to muscle strain. White blood cell count 14.4 but the rest of CBC and CMP were unremarkable. Troponin negative and EKG showed no signs of AR. Chest x-ray showed no acute findings. Right shoulder x-ray showed no acute fractures. Patient was given some IV morphine and then IV Toradol and Norflex. Patient was diagnosed with a muscle strain of upper back and sent home with a prescription for meloxicam and methocarbamol. She is told to follow-up with PCP in 7 to 10 days for reevaluation. Return to ED precautions given. Patient understood agree with plan. Lab Data: Attestation: I reviewed the patient's lab results. Labs: Lab Results 06/05/20 06/05/20 06/05/20 Range/Units 20:37 20:37 20:37 WBC 14.4 H (4.0-10.0) 10^3/ uL RBC 5.17 (4.1-5.3) 10^6/u L Hgb 15.1 (11.5-15.3) g/dL Hct 45.4 (37.0-47.0) % MCV 87.8 (81-99) fL MCH 29.2 (28.0-34.0) pg MCHC 33.3 (30.0-36.0) g/dL RDW 12.5 (12.1-15.1) % Plt Count 319 (130-400) 10^3/c mm MPV 10.3 (7.4-10.4) fL Neut % (Auto) 86.5 % Lymph % (Auto) 9.6 % Villalba % (Auto) 3.1 % Eos % (Auto) 0.0 % Baso % (Auto) 0.1 % Neut # (Auto) 12.40 H (1.8-7.7) 10^3/u L Lymph # (Auto) 1.4 (0.8-4.8) 10^3/u L Villalba # (Auto) 0.5 (0.2-0.9) 10^3/u L Eos # (Auto) 0.0 (0.0-0.8) 10^3/u L Baso # (Auto) 0.0 (0.0-0.1) 10^3/u L Nucleated RBC % (a uto) 0 % Nucleated RBCs # 0.0 /100WBC Sodium 133 L (136-145) mmol/L Potassium 4.6 (3.5-5.1) mmol/L Chloride 97 L (98-107) mmol/L Carbon Dioxide 27 (22-29) mmol/L Anion Gap 13.6 (5-19) BUN 12 (6-20) mg/dL Creatinine 0.6 (0.5-0.9) mg/dL GFR Calculation 111.3 (90-130) mL/min Glucose 104 (65-115) mg/dL Calculated Osmolal ity 276 L (285-295) mOsm/k g Calcium 10.3 (8.5-10.5) mg/dL Total Bilirubin 0.4 (0.15-1.2) mg/dL AST 27 (0-32) U/L ALT 31 (0-33) U/L Alkaline Phosphata se 90 (35-105) IU/L Troponin T Gen 5 n g/L 6 (0-10) ng/L Total Protein 7.9 (6.6-8.7) g/dL Albumin 4.9 (3.5-5.2) g/dL Globulin 3.0 (1.3-4.6) g/dL HCG, Qual (Negative) 06/05/20 Range/Units 20:44 WBC (4.0-10.0) 10^3/ uL RBC (4.1-5.3) 10^6/u L Hgb (11.5-15.3) g/dL Hct (37.0-47.0) % MCV (81-99) fL MCH (28.0-34.0) pg MCHC (30.0-36.0) g/dL RDW (12.1-15.1) % Plt Count (130-400) 10^3/c mm MPV (7.4-10.4) fL Neut % (Auto) % Lymph % (Auto) % Villalba % (Auto) % Eos % (Auto) % Baso % (Auto) % Neut # (Auto) (1.8-7.7) 10^3/u L Lymph # (Auto) (0.8-4.8) 10^3/u L Villalba # (Auto) (0.2-0.9) 10^3/u L Eos # (Auto) (0.0-0.8) 10^3/u L Baso # (Auto) (0.0-0.1) 10^3/u L Nucleated RBC % (a uto) % Nucleated RBCs # /100WBC Sodium (136-145) mmol/L Potassium (3.5-5.1) mmol/L Chloride (98-107) mmol/L Carbon Dioxide (22-29) mmol/L Anion Gap (5-19) BUN (6-20) mg/dL Creatinine (0.5-0.9) mg/dL GFR Calculation (90-130) mL/min Glucose (65-115) mg/dL Calculated Osmolal ity (285-295) mOsm/k g Calcium (8.5-10.5) mg/dL Total Bilirubin (0.15-1.2) mg/dL AST (0-32) U/L ALT (0-33) U/L Alkaline Phosphata se (35-105) IU/L Troponin T Gen 5 n g/L (0-10) ng/L Total Protein (6.6-8.7) g/dL Albumin (3.5-5.2) g/dL Globulin (1.3-4.6) g/dL HCG, Qual Negative (Negative) Imaging Data^: Xray Ortho: Attestation: I personally reviewed and interpreted this imaging study as follows: My impression: Right shoulder x-ray shows no acute fractures or findings. CXR: Attestation: I personally reviewed and interpreted this imaging study as follows: Radiologist's impression: [address] [address] XRay Report Signed Patient: Olga Zavaleta Unit #: [id number] : 1980 Age/Sex: 40 / F ADM Date: 06/05/20 Loc: ER Room/Bed: Attending Dr: Ordering Provider/Ordering MD: Froilan Calhoun Date of Service: 06/05/20 Procedure(s): XR chest 1V portable [id number] Accession Number(s): [id number] Report Number: [id number] PROCEDURE INFORMATION: Exam: XR Chest, 1 View Exam date and time: 06/05/2020 7:53 PM Age: 40 years old Clinical indication: Chest pain; Additional info: Chest pain, pain in right shoulder radiating to neck. TECHNIQUE: Imaging protocol: XR of the chest Views: 1 view. COMPARISON: CR Chest 1 [place] [id number] 10/19/2018 8:25 PM FINDINGS: Lungs: Unremarkable. No consolidation. Pleural spaces: Unremarkable. No pleural effusion. No pneumothorax. Heart/Mediastinum: Unremarkable. No cardiomegaly. Bones/joints: Unremarkable. XR/XR chest 1V portable [id number] IMPRESSION: No change, unremarkable Dictated By: Sofia Beckford MD Signed By: Sofia Beckford MD Signed Date/Time: 06/05/202115 DD/ 13 EKG Data^: EKG 1: Attestation: I personally reviewed and interpreted this EKG as follows: EKG interpretation date: 06/05/20 Interpretation: Sinus tachycardia, 109 bpm, no ST segment elevation or depression seen. Discharge Plan Discharge Patient Disposition: Home Clinical Impression: Muscle strain of upper back Condition: Stable Prescriptions: New methocarbamol 750 mg tablet 750 mg PO Q8H Qty: 15 RF: 0 meloxicam 15 mg tablet 15 mg PO DAILY Qty: 20 RF: 0 No Action rizatriptan [Maxalt-POLITICAL REPORTER] 10 mg tablet,disintegrating See Rx Instructions PO .COMPLEX Qty: 14 RF: 4 diclofenac sodium [Voltaren] 1 % gel 4 gm TOPICAL QID Qty: 100 RF: 0 phentermine 37.5 mg capsule 37.5 mg PO DAILY RF: 0 Discharge Orders: Discharge ED (Routine); Ordered 06/05/20 Ordered By: Froilan Calhoun Discharge Diet: Regular Discharge Activity: Increase activity as tolerated Patient Instructions: Muscle Strain (ED), Back Pain (ED) Activity Restrictions/Additional Instructions: Follow-up with medical provider as directed in 7 to 10 days for reevaluation. Take medications as prescribed. Methocarbamol is a muscle relaxer and can cause some drowsiness so take at night before bed. Do not take both the methocarbamol and Flexeril. Choose 1 muscle relaxer to take for the day. Apply ice on back stretch back muscles daily. Return to the ER or your medical provider if condition worsens. Please read and understand discharge instructions. If any questions, please ask. Coding Level of Care Code ED Director Of It Operations for Chichi Fwd Exam Comprehensive
[2020-06-05 20:01] VITALS: RESP 18
[2020-06-05] MEDS: morphine 4 mg/mL SDV 1 mL IM (20:01)
[2020-06-05 20:10] VITALS: PULSE 110
[2020-06-05 20:45] LABS: Basophils % 0.1 %; Hematocrit 45.4 % (37.0-47.0); Hemoglobin 15.1 g/dL (11.5-15.3); Lymphocytes # 1.4 10^3/uL (0.8-4.8); Lymphocytes % 9.6 %; Mean Corpuscular HGB Conc 33.3 g/dL (30.0-36.0); Mean Corpuscular Hemoglobin 29.2 pg (28.0-34.0); Mean Corpuscular Volume 87.8 fL (81-99); Mean Platelet Volume 10.3 fL (7.4-10.4); Monocytes # 0.5 10^3/uL (0.2-0.9); Monocytes % 3.1 %; Neutrophils % 86.5 %; Nucleated Red Blood Cells % 0 %; Platelet Count 319 10^3/cmm (130-400); Red Blood Count 5.17 10^6/uL (4.1-5.3); Red Cell Distribution Width 12.5 % (12.1-15.1); White Blood Count 14.4 10^3/uL (4.0-10.0)
[2020-06-05 21:02] LABS: HCG, Serum Qual Negative (Negative)
[2020-06-05 21:13] LABS: Alanine Aminotransferase 31 U/L (0-33); Albumin Level 4.9 g/dL (3.5-5.2); Alkaline Phosphatase 90 IU/L (35-105); Anion Gap 13.6 (5-19); Aspartate Amino Transferase 27 U/L (0-32); Blood Urea Nitrogen 12 mg/dL (6-20); Calcium 10.3 mg/dL (8.5-10.5); Carbon Dioxide 27 mmol/L (22-29); Chloride 97 mmol/L (98-107); Glomerular Filtration Rate 111.3 mL/min (90-130); Glucose 104 mg/dL (65-115); Osmolality Calculated 276 mOsm/kg (285-295); Potassium 4.6 mmol/L (3.5-5.1); Sodium 133 mmol/L (136-145); Total Bilirubin 0.4 mg/dL (0.15-1.2); Total Protein 7.9 g/dL (6.6-8.7)
[2020-06-05 21:17] LABS: Troponin T (5th) Once 6 ng/L (0-10)
[2020-06-05] MEDS: orphenadrine 30 mg/mL Inj 2 mL 60 MG IM (21:21)
[2020-06-05] MEDS: ketorolac 60 mg/2 mL INJ IM (21:21)
--- NOTE | 2020-06-05 21:25 | PC.NURSE ---
Pt reports pain started 15 years ago and becomes problemsome with daily exertion. Pt states she visits a chiropractor weekly for pain.
[2020-06-05 21:48] VITALS: BP 116/73; PULSE 108; RESP 18; O2SAT 96
== END 2020-06-05 21:52 | disposition home or self-care (01) ==
PROVIDERS: Emergency Provider Physician Assistant
DX: S29.012A Strain of muscle and tendon of back wall of thorax, initial encounter (principal); Z77.22 Contact with and (suspected) exposure to environmental tobacco smoke (acute) (chronic); X58.XXXA Exposure to other specified factors, initial encounter
CPT/HCPCS: 12345; 71045; 73030; 80053; 84484; 84703; 85025; 93005; 96372; 99282; 99283; J1885; J2270; J2360

== ENCOUNTER 2020-09-05 17:19 | Emergency (ER) | payer SELFPAY ==
[2020-09-05 17:47] VITALS: BP 112/73; PULSE 89; RESP 18; TEMP 36.8; O2SAT 100; BMI 30.8
--- NOTE | 2020-09-05 20:09 | ED_ITS ---
HPI - Skin/Abscess/Foreign Bdy General: Chief complaint: Skin/Abscess/Foreign Body Stated complaint: Spreading Rash on Arms/Chest Time Seen by Provider: 09/05/20 19:48 Source: patient Mode of arrival: ambulatory Limitations: no limitations History of Present Illness: HPI narrative: 40-year-old female complaining of several painful red bumps in her left axilla. No fever. She has had similar symptoms in the past, has been told it is because of shaving. Has not tried taking anything for the symptoms. complaint: lesion Onset (ago): day(s) Tetanus up to date: yes Associated symptoms: Deny chills, fever(s), nausea or vomiting Review of Systems General: Reports: 10 or more systems reviewed and unremarkable except in HPI and below Const: Denies: fever(s), chills, body aches or change in appetite Eyes: Denies: change in vision or blurry vision ENMT: Denies: throat pain GI: Denies: abdominal pain, nausea or vomiting Skin/Breast: Reports: rash, pruritus and erythema PFSH ED PFSH: Medical History No pertinent past medical history Surgical History No history of previous surgery Family History Denies family history of Anesthesia complication Bleeding disorder Social History Smoking and tobacco status: never smoked Second hand smoke exposure: Yes Alcohol intake: former Lives independently: Yes Household members: children Marital status: History of recent travel: No Current gender identity: Female Female Reproductive History: Date of last menstrual period: 11/21/19 Physical Exam Const: COMMON NORMALS: no acute distress, average body habitus and patient oriented x3 GENERAL APPEARANCE: cooperative and comfortable ORIENTATION/CONSCIOUSNESS: Yes awake HENMT: COMMON NORMALS: normocephalic and atraumatic HEAD & SCALP: normocephalic and atraumatic Lymph: LYMPHATIC: no lymphadenopathy noted Chest: OTHER: Several small slightly indurated and indurated papules in the left axilla. No fluctuance, pointing, or active drainage. No lymphadenopathy. Resp: COMMON NORMALS: normal respiratory effort EFFORT & INSPECTION: Yes able to speak in complete sentences and No abnormal respiratory pattern Neuro: COMMON NORMALS: patient oriented x3 and no focal motor deficits Course Vital Signs: Vital signs: Vital Signs Temperature 98.2 F 09/05/20 17:47 Pulse Rate 89 09/05/20 17:47 Respiratory Rate 18 09/05/20 17:47 Blood Pressure 112/73 09/05/20 17:47 Pulse Oximetry 100 09/05/20 17:47 MDM - Skin/Abscess/Foreign Bdy MDM Narrative: Medical decision making narrative: 40-year-old female with left axillary folliculitis. Doxycycline twice daily for 7 days. No dry shaving, decrease frequency of shaving. Follow-up with PCP in 3 to 5 days for recheck. Differential Diagnosis: Skin/Abscess Differential Diagnosis: Likely abscess of skin or subcutaneous tissue, allergic reaction to drug, cellulitis, impetigo and contact dermatitis Medical Records: Attestation: I reviewed the patient's medical records. Discharge Plan Discharge Patient Disposition: Home Clinical Impression: Folliculitis of axilla Condition: Stable Prescriptions: New doxycycline hyclate 100 mg capsule 100 mg PO BID 14 Days Qty: 28 RF: 0 No Action dexamethasone sodium phosphate 4 mg/mL solution 4 mg IM ONCE Qty: 1 RF: 0 diclofenac sodium 75 mg tablet,delayed release (DR/EC) 75 mg PO BID PRN (Reason: pain) Qty: 60 RF: 0 cyclobenzaprine 10 mg tablet 10 mg PO TID PRN (Reason: muscle spasm) Qty: 30 RF: 0 phentermine 37.5 mg capsule 37.5 mg PO DAILY RF: 0 Discharge Orders: Discharge ED (Routine); Ordered 09/05/20 Ordered By: Lory Navarrete Referrals: Phoebe Metzger APN [Primary Care Provider] - Discharge Diet: Advance as tolerated Discharge Activity: Resume usual activity Patient Instructions: Folliculitis (ED) Stand Alone Forms: Work/School Release Coding Level of Care Code ED Instrument Lens Generator for [facility] [place]
== END 2020-09-05 20:51 | disposition home or self-care (01) ==
PROVIDERS: Emergency Provider Family Medicine; PCP Nurse Practitioner Family
DX: L73.9 Follicular disorder, unspecified (principal); Z77.22 Contact with and (suspected) exposure to environmental tobacco smoke (acute) (chronic)
CPT/HCPCS: 99282

== ENCOUNTER 2020-09-11 08:27 | Outpatient (CLI) | payer SELFPAY ==
--- NOTE | 2020-09-11 08:45 | MR_ITS ---
WS: [id number] MRI RIGHT SHOULDER NONCONTRAST TECHNIQUE: Sagittal T2, coronal T1, T2 and proton density imaging. Axial gradient PDE imaging. 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 Moderate downsloping acromion. Mild narrowing of the sub acromial space. Normal bone marrow signal in the humeral head and neck. Normal supraspinatus. Normal infraspinatus. Normal teres minor. Normal subscapularis. Normal bone marrow signal in the scapula. Normal biceps tendon in the bicipital groove. Normal biceps labral anchor. Normal bone marrow signal in the glenoid. MR/MR shoulder RT wo con* [id number] IMPRESSION: 1. 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 Mild narrowing of the subacromial space. 2. Rotator cuff is normal. 3. Normal biceps tendon in the bicipital groove. Normal biceps labral anchor. 4. Normal bone marrow signal in the scapula.
== END 2020-09-11 08:28 | disposition home or self-care (01) ==
LOC: RADSHAW 08:28
PROVIDERS: PCP Nurse Practitioner Family; Visit Provider Nurse Practitioner Family
DX: G89.29 Other chronic pain (principal); M19.011 Primary osteoarthritis, right shoulder
CPT/HCPCS: 73221

== ENCOUNTER → 2020-09-25 08:19 | Outpatient (BNVA) | payer OTHER, SELFPAY | PROVIDERS: PCP Nurse Practitioner Family; Visit Provider Psychiatry & Neurology Psychiatry | DX: Z79.899 Other long term (current) drug therapy (principal) | CPT/HCPCS: 99204 ==

== ENCOUNTER → 2021-03-03 15:20 | Outpatient (BNVA) | payer SELFPAY | PROVIDERS: PCP Nurse Practitioner Family; Visit Provider Nurse Practitioner Family | DX: G43.909 Migraine, unspecified, not intractable, without status migrainosus (principal) | CPT/HCPCS: 80053; 85025 ==

== ENCOUNTER 2021-03-10 15:14 | Outpatient (CLI) | payer SELFPAY ==
--- NOTE | 2021-03-10 15:30 | MM_ITS ---
WS: [id number] BILATERAL DIGITAL SCREENING MAMMOGRAPHY WITH CAD CLINICAL INFORMATION: Z12.31 - Encounter for screening mammogram for malignant ... HISTORY: Screening mammogram. No current complaints. COMPARISON: None. TECHNIQUE: Bilateral CC and MLO views. FINDINGS: Scattered fibroglandular densities bilaterally. A few punctate calcifications. No suspicious focal ma ss, asymmetry, calcifications, or architectural distortion. No evidence of malignancy. MM/[place] [id number] IMPRESSION: BI-RADS: 2-Benign FOLLOW UP: 1 Year Follow-up Recommend return to annual screening mammography.
== END 2021-03-10 15:15 | disposition home or self-care (01) ==
PROVIDERS: PCP Nurse Practitioner Family; Visit Provider Nurse Practitioner Family
DX: Z12.31 Encounter for screening mammogram for malignant neoplasm of breast (principal); Z80.3 Family history of malignant neoplasm of breast; R30.0 Dysuria; Z12.4 Encounter for screening for malignant neoplasm of cervix
CPT/HCPCS: 77067; 87491; 87591; 87661; 88175

== ENCOUNTER 2021-03-13 08:36 | Outpatient (CLI) | payer SELFPAY ==
--- NOTE | 2021-03-13 09:00 | CT_ITS ---
WS: [id number] CT HEAD NONCONTRAST HISTORY: R51.9 - Headache, unspecified TECHNIQUE: Contiguous axial imaging performed through the brain in 2.5 mm imaging. Bone and soft tiss ue windows. All CT scans at [facility] use at least one of these dose optimization techniques: automated exposure control; mA and/or kV adjustment per patient size (includes targeted exams where dose is matched to clinical indication); or iterative reconstruction. DLP: 925.91 mGycm COMPARISON: 10/16/2017 No acute intracranial hemorrhage, midline shift or mass effect. No atrophy or prior infarcts or herniation. Ventricles: Normal size with no hydrocephalus. Paranasal sinuses: As visualized are clear. Mastoid air cells: Well pneumatized. Calvarium and scalp: Skull is intact with no soft tissue edema or swelling. CT/CT head wo con* [id number] IMPRESSION: Negative head CT.
== END 2021-03-13 08:37 | disposition home or self-care (01) ==
PROVIDERS: PCP Nurse Practitioner Family; Visit Provider Nurse Practitioner Family
DX: R51.9 Headache, unspecified (principal); R42 Dizziness and giddiness; W19.XXXA Unspecified fall, initial encounter
CPT/HCPCS: 70450

== ENCOUNTER 2021-05-10 08:49 | Emergency (ER) | payer SELFPAY ==
--- NOTE | 2021-05-10 08:52 | XRR_ITS ---
PROCEDURE INFORMATION: Exam: XR Chest Exam date and time: 05/10/2021 8:52 AM Age: 41 years old Clinical indication: Pain; Chest pressure; Additional info: Chest pain TECHNIQUE: Imaging protocol: XR of the chest. Views: 1 view. COMPARISON: CR XR chest 1V portable [id number] 06/05/2020 7:48 PM FINDINGS: Lungs: Unremarkable. No consolidation. Pleural spaces: Unremarkable. No pleural effusion. No pneumothorax. Heart/Mediastinum: Unremarkable. No cardiomegaly. Bones/joints: Unremarkable. XR/XR chest 1V portable [id number] IMPRESSION: No acute findings.
[2021-05-10 08:53] VITALS: BP 114/72; PULSE 89; RESP 15; TEMP 36.8; O2SAT 98; BMI 33.9
--- NOTE | 2021-05-10 08:53 | ECG_ITS ---
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 Measurements Intervals [place] Rate: 89 P: 18 UT: 144 QRS: 8 QRSD: 89 T: 10 QT: 364 QTc: 444 Interpretive Statements SINUS RHYTHM No previous ECG available for comparison Electronically Signed On 05-10-2021 14:57:43 FISCAL SERVICES MANAGER by Allen Khan M.D. [id number]
--- NOTE | 2021-05-10 09:10 | ED_ITS ---
Documented by User: FELICIA Hernandez 05/10/21 10:40 HPI - Chest Pain General: Chief Complaint: Chest Pain Stated Complaint: CP X 1 WK Time Seen by Provider: 05/10/21 08:50 Source: patient Mode of arrival: ambulatory Limitations: no limitations History of Present Illness: HPI narrative: Patient is a nice 41-year-old female who presents to ED today with a complaint of intermittent chest pain over the past week. Patient describes a burning sensation to her epigastric region with radiation up into her chest. Patient states symptoms are exacerbated by eating (especially pizza). Symptoms also seem to worsen with lying flat. Patient states she treated with Tums and another OTC stomach medication that did alleviate the burning sensation for an hour or so. She reports a history of a gastric ulcer almost 20 years ago. Patient denies hematemesis. Reports she has been constipated and has noticed a small amount of tarry stool . Denies alcohol use. States she does take 1200mg Ibuprofen BID for years . Patient denies any previous cardiac or pulmonary history. MD complaint: chest pain Timing of current episode: episodic Prior episodes: No Onset: after eating Pain location: epigastric Quality: burning Relieving factors: eating Exacerbating factors: other (otc stomach meds ) Associated symptoms: Reports abdominal pain; Deny dyspnea, fever(s), nausea, palpitations, syncope or vomiting Review of Systems Const: Denies: fever(s), chills, body aches, fatigue or malaise Card: Reports: chest pain; Denies: palpitations, irregular heart rhythm, edema, swelling of feet/ankles, lightheadedness, syncope, pre-syncope, dyspnea on exertion, orthopnea, leg pain with exertion or acrocyanosis Resp: Denies: dyspnea, productive cough, non-productive cough, wheezing, hemoptysis or chest congestion GI: Reports: abdominal pain and heartburn; Denies: nausea, vomiting or diarrhea Musc: Denies: back pain Neuro: Denies: dizziness PFS ED PFSH: Medical History (Updated 03/21/21 @ 09:27 by Lucille Person) No pertinent past medical history Psychiatric care Surgical History No history of previous surgery Family History Denies family history of Anesthesia complication Bleeding disorder Social History Smoking and tobacco status: never smoked Second hand smoke exposure: Yes Alcohol intake: former Lives independently: Yes Household members: children Marital status: History of recent travel: No Current gender identity: Female Female Reproductive History: Date of last menstrual period: 05/05/21 Physical Exam Const: COMMON NORMALS: no acute distress, patient oriented x3, no limitations and alert GENERAL APPEARANCE: cooperative NUTRITIONAL APPEARANCE: overweight ORIENTATION/CONSCIOUSNESS: Yes awake, Yes oriented to person, Yes oriented to place and Yes oriented to time HENMT: COMMON NORMALS: normocephalic and atraumatic HEAD & SCALP: normocephalic and atraumatic Chest: COMMONS NORMALS: normal inspection of the chest and normal palpation of entire chest wall Resp: COMMON NORMALS: normal respiratory effort and clear to auscultation bilaterally AUSCULTATION: clear to auscultation bilaterally Cardio: COMMON NORMALS: regular rate and regular rhythm RATE: regular rate RHYTHM: regular rhythm GI: COMMON NORMALS: Normal to inspection, nondistended, normoactive bowel sounds present, Soft to palpation, No hepatosplenomegaly present and no masses INSPECTION: Yes normal to inspection PALPATION: Yes Soft to palpation, Yes Tenderness to palpation present (GI) (epigastric) and Yes No hepatosplenomegaly present RECTAL EXAM: heme negative stool Neuro: COMMON NORMALS: patient oriented x3 SENSORIUM/ORIENTATION: Yes alert, Yes oriented to person, Yes oriented to place and Yes oriented to time Skin: COMMON NORMALS: no rashes or lesions noted GENERAL SKIN EXAM: no rashes or lesions noted Course Reevaluation(s): Reevaluation #1: Patient reports much relief following GI cocktail. Hemoccult performed which was negative. Vital Signs: Vital signs: Vital Signs Temperature 98.2 F 05/10/21 08:53 Pulse Rate 82 05/10/21 09:41 Respiratory Rate 18 05/10/21 09:41 Blood Pressure 133/71 05/10/21 09:41 Pulse Oximetry 98 05/10/21 09:41 MDM - Chest Pain MDM Narrative: Medical decision making narrative: Patient appears in no acute distress. Her vital signs are stable. History is consistent with GERD/acid reflux/possible gastritis related to NSAID use. H/H normal. Hemoccult negative. Remainder of labs unremarkable. CXR and EKG normal. She gained relief from GI cocktail. Will have patient stop all NSAID use and will place her on Pepcid and Prilosec and have her follow up with PCP-information placed with CM for this. Lab Data: Labs: Lab Results 05/10/21 05/10/21 09:46 09:46 WBC 7.8 10^3/uL 10^3/ uL (4.0-10.0) RBC 4.97 10^6/uL 10^6 /uL (4.1-5.3) Hgb 14.6 g/dL g/dL (11.5-15.3) Hct 43.0 % % (37.0-47.0) MCV 86.5 fl fl (81-99) MCH 29.4 pg pg (28.0-34.0) MCHC 34.0 g/dL g/dL (30.0-36.0) RDW 12.9 % % (12.1-15.1) Plt Count 313 10^3/cmm 10^3 /cmm (130-400) MPV 10.1 fL fL (7.4-10.4) Neut % (Auto) 60.0 % % Lymph % (Auto) 32.1 % % [place] % (Auto) 4.5 % % Eos % (Auto) 1.9 % % Baso % (Auto) 0.3 % % Neut # (Auto) 4.70 10^3/uL 10^3 /uL (1.8-7.7) Lymph # (Auto) 2.5 10^3/uL 10^3/ uL (0.8-4.8) [place] # (Auto) 0.4 10^3/uL 10^3/ uL (0.2-0.9) Eos # (Auto) 0.2 10^3/uL 10^3/ uL (0.0-0.8) Baso # (Auto) 0.0 10^3/uL 10^3/ uL (0.0-0.1) Nucleated RBC % (a uto) 0 % % Nucleated RBCs # 0.0 /100WBC /100W BC Sodium 135 mmol/L L mmol /L (136-145) Potassium 4.0 mmol/L mmol/L (3.5-5.1) Chloride 101 mmol/L mmol/L (98-107) Carbon Dioxide 19 mmol/L L mmol/ L (22-29) Anion Gap 19.0 (5-19) BUN 8 mg/dL mg/dL (6-20) Creatinine 0.5 mg/dL mg/dL (0.5-0.9) GFR Calculation 136.6 mL/min H mL /min (90-130) Glucose 92 mg/dL mg/dL (65-115) Calculated Osmolal ity 278 mOsm/kg L mOs m/kg (285-295) Calcium 8.4 mg/dL L mg/dL (8.5-10.5) Total Bilirubin 0.5 mg/dL mg/dL (0.15-1.2) AST 24 U/L U/L (0-32) ALT 27 U/L U/L (0-33) Alkaline Phosphata se 99 IU/L IU/L (35-105) Total Protein 7.1 g/dL g/dL (6.6-8.7) Albumin 4.1 g/dL g/dL (3.5-5.2) Globulin 3.0 g/dL g/dL (1.3-4.6) Lipase 25 U/L U/L (13-60) Imaging Data^: CXR: Radiologist's impression: [address] [id number] ReportSigned Patient: Olga Nair #: [id number]: [id number]#:[id number]/Sex: 41 / FADM Date: 05/10/21Loc: ERRoom/Bed:Attending Dr: Ordering Provider/Ordering MD: Ratna Vann Date of Service: 05/10/21 Procedure(s): XR chest 1V portable [id number] Accession Number(s): [id number] Report Number: [id number] PROCEDURE INFORMATION: Exam: XR Chest Exam date and time: 05/10/2021 8:52 AM Age: 41 years old Clinical indication: Pain; Chest pressure; Additional info: Chest pain TECHNIQUE: Imaging protocol: XR of the chest. Views: 1 view. COMPARISON: CR XR chest 1V portable [id number] 06/05/2020 7:48 PM FINDINGS: Lungs: Unremarkable. No consolidation. Pleural spaces: Unremarkable. No pleural effusion. No pneumothorax. Heart/Mediastinum: Unremarkable. No cardiomegaly. Bones/joints: Unremarkable. XR/XR chest 1V portable [id number] IMPRESSION: No acute findings. Dictated By:Sameer Centeno By:Sameer Centeno Date/Time:05/10/21 1033DD/ 0852 EKG Data^: EKG 1: EKG interpretation date: 05/10/21 EKG interpretation time: 09:03 Interpretation: Sinus rhythm Rate [address] elevation or depression changes noted Discharge Plan Discharge Patient Disposition: Home Condition: Stable Prescriptions: New Pepcid 20 mg tablet 20 mg PO BID 28 Days Qty: 56 RF: 0 pantoprazole 40 mg tablet,delayed release (DR/EC) 40 mg PO DAILY 28 Days Qty: 28 RF: 0 Discontinued diclofenac sodium 75 mg tablet,delayed release (DR/EC) 75 mg PO BID PRN (Reason: pain) Qty: 60 RF: 0 No Action dexamethasone sodium phosphate 4 mg/mL solution 4 mg IM ONCE Qty: 1 RF: 0 topiramate [Topamax] 50 mg tablet 50 mg PO BID 30 Days Qty: 60 RF: 6 rizatriptan [Maxalt-[employer]] 10 mg tablet,disintegrating See Rx Instructions PO .COMPLEX Qty: 10 RF: 0 Antivert 50 mg tablet 50 mg PO BID 30 Days Qty: 60 RF: 2 doxycycline hyclate 100 mg capsule 100 mg PO BID 14 Days Qty: 28 RF: 0 risperidone [Risperdal] 0.5 mg tablet 0.5 mg PO BID Qty: 60 RF: 2 trazodone 50 mg tablet 100 mg PO .HS PRN (Reason: insomnia) Qty: 60 RF: 2 naltrexone 50 mg tablet 50 mg PO DAILY Qty: 30 RF: 2 fluoxetine 40 mg capsule 40 mg PO DAILY Qty: 30 RF: 0 Discharge Orders: Discharge ED (Routine); Ordered 05/10/21 Ordered By: Ratna Vann Referrals: Luisa Alonzo FNP [Primary Care Provider] - Patient Instructions: Diet for Stomach Ulcers and Gastritis (ED), GERD (Gastroesophageal Reflux Disease) (ED) Activity Restrictions/Additional Instructions: As we discussed DISCONTINUE IBUPROFEN USE. Do not use any other [id number]-[id number] anti-inflammatories such as Naprosyn, Aspirin, etc. begin p rescribed medications as soon as possible. Case management should contact you shortly to set you up with a primary care provider for further evaluation and management. You need to return to the emergency department for severe abdominal pain, vomiting blood, bloody or black/tarry stools. Coding Level of Care Code ED Program Supervisor for Chg Fwd Exam Detailed Documented by User: Jorge Ryan DO 05/10/21 11:05 HPI - Chest Pain General: Chief Complaint: Chest Pain Stated Complaint: CP X 1 WK Time Seen by Provider: 05/10/21 08:50 PFSH ED PFSH: Medical History (Updated 03/21/21 @ 09:27 by Lucille Person) No pertinent past medical history Psychiatric care Surgical History No history of previous surgery Family History Denies family history of Anesthesia complication Bleeding disorder Social History Smoking and tobacco status: never smoked Second hand smoke exposure: Yes Alcohol intake: former Lives independently: Yes Household members: children Marital status: History of recent travel: No Current gender identity: Female Course Vital Signs: Vital signs: Vital Signs Temperature 98.2 F 05/10/21 08:53 Pulse Rate 82 05/10/21 09:41 Respiratory Rate 18 05/10/21 09:41 Blood Pressure 133/71 05/10/21 09:41 Pulse Oximetry 98 05/10/21 09:41 MDM - Chest Pain MDM Narrative: Medical decision making narrative: Chart reviewed and patient discussed with midlevel. Agree with assessment and plan. Lab Data: Labs: Lab Results 05/10/21 05/10/21 09:46 09:46 WBC 7.8 10^3/uL 10^3/ uL (4.0-10.0) RBC 4.97 10^6/uL 10^6 /uL (4.1-5.3) Hgb 14.6 g/dL g/dL (11.5-15.3) Hct 43.0 % % (37.0-47.0) MCV 86.5 fl fl (81-99) MCH 29.4 pg pg (28.0-34.0) MCHC 34.0 g/dL g/dL (30.0-36.0) RDW 12.9 % % (12.1-15.1) Plt Count 313 10^3/cmm 10^3 /cmm (130-400) MPV 10.1 fL fL (7.4-10.4) Neut % (Auto) 60.0 % % Lymph % (Auto) 32.1 % % [place] % (Auto) 4.5 % % Eos % (Auto) 1.9 % % Baso % (Auto) 0.3 % % Neut # (Auto) 4.70 10^3/uL 10^3 /uL (1.8-7.7) Lymph # (Auto) 2.5 10^3/uL 10^3/ uL (0.8-4.8) [place] # (Auto) 0.4 10^3/uL 10^3/ uL (0.2-0.9) Eos # (Auto) 0.2 10^3/uL 10^3/ uL (0.0-0.8) Baso # (Auto) 0.0 10^3/uL 10^3/ uL (0.0-0.1) Nucleated RBC % (a uto) 0 % % Nucleated RBCs # 0.0 /100WBC /100W BC Sodium 135 mmol/L L mmol /L (136-145) Potassium 4.0 mmol/L mmol/L (3.5-5.1) Chloride 101 mmol/L mmol/L (98-107) Carbon Dioxide 19 mmol/L L mmol/ L (22-29) Anion Gap 19.0 (5-19) BUN 8 mg/dL mg/dL (6-20) Creatinine 0.5 mg/dL mg/dL (0.5-0.9) GFR Calculation 136.6 mL/min H mL /min (90-130) Glucose 92 mg/dL mg/dL (65-115) Calculated Osmolal ity 278 mOsm/kg L mOs m/kg (285-295) Calcium 8.4 mg/dL L mg/dL (8.5-10.5) Total Bilirubin 0.5 mg/dL mg/dL (0.15-1.2) AST 24 U/L U/L (0-32) ALT 27 U/L U/L (0-33) Alkaline Phosphata se 99 IU/L IU/L (35-105) Total Protein 7.1 g/dL g/dL (6.6-8.7) Albumin 4.1 g/dL g/dL (3.5-5.2) Globulin 3.0 g/dL g/dL (1.3-4.6) Lipase 25 U/L U/L (13-60) Discharge Plan Discharge Patient Disposition: Home Condition: Stable Prescriptions: New Pepcid 20 mg tablet 20 mg PO BID 28 Days Qty: 56 RF: 0 pantoprazole 40 mg tablet,delayed release (DR/EC) 40 mg PO DAILY 28 Days Qty: 28 RF: 0 Discontinued diclofenac sodium 75 mg tablet,delayed release (DR/EC) 75 mg PO BID PRN (Reason: pain) Qty: 60 RF: 0 No Action dexamethasone sodium phosphate 4 mg/mL solution 4 mg IM ONCE Qty: 1 RF: 0 topiramate [Topamax] 50 mg tablet 50 mg PO BID 30 Days Qty: 60 RF: 6 rizatriptan [Maxalt-[employer]] 10 mg tablet,disintegrating See Rx Instructions PO .COMPLEX Qty: 10 RF: 0 Antivert 50 mg tablet 50 mg PO BID 30 Days Qty: 60 RF: 2 doxycycline hyclate 100 mg capsule 100 mg PO BID 14 Days Qty: 28 RF: 0 risperidone [Risperdal] 0.5 mg tablet 0.5 mg PO BID Qty: 60 RF: 2 trazodone 50 mg tablet 100 mg PO .HS PRN (Reason: insomnia) Qty: 60 RF: 2 naltrexone 50 mg tablet 50 mg PO DAILY Qty: 30 RF: 2 fluoxetine 40 mg capsule 40 mg PO DAILY Qty: 30 RF: 0 Discharge Orders: Discharge ED (Routine); Ordered 05/10/21 Ordered By: Ratna Vann Referrals: Luisa Alonzo FNP [Primary Care Provider] - Patient Instructions: Diet for Stomach Ulcers and Gastritis (ED), GERD (Gastroesophageal Reflux Disease) (ED) Activity Restrictions/Additional Instructions: As we discussed DISCONTINUE IBUPROFEN USE. Do not use any other pgny-phn-flwjezk anti-inflammatories such as Naprosyn, Aspirin, etc. begin prescribed medications as soon as possible. Case management should contact you shortly to set you up with a primary care provider for further evaluation and management. You need to return to the emergency department for severe abdominal pain, vomiting blood, bloody or black/tarry stools. Coding Level of Care Code ED Program Supervisor for Chg Fwd Exam Detailed
[2021-05-10 09:41] VITALS: BP 133/71; PULSE 82; RESP 18; O2SAT 98
[2021-05-10 09:58] LABS: Basophils % 0.3 %; Eosinophils # 0.2 10^3/uL (0.0-0.8); Eosinophils % 1.9 %; Hemoglobin 14.6 g/dL (11.5-15.3); Lymphocytes # 2.5 10^3/uL (0.8-4.8); Lymphocytes % 32.1 %; Mean Corpuscular Hemoglobin 29.4 pg (28.0-34.0); Mean Corpuscular Volume 86.5 fl (81-99); Mean Platelet Volume 10.1 fL (7.4-10.4); Monocytes # 0.4 10^3/uL (0.2-0.9); Monocytes % 4.5 %; Nucleated Red Blood Cells % 0 %; Platelet Count 313 10^3/cmm (130-400); Red Blood Count 4.97 10^6/uL (4.1-5.3); Red Cell Distribution Width 12.9 % (12.1-15.1); White Blood Count 7.8 10^3/uL (4.0-10.0)
[2021-05-10 10:22] LABS: Alanine Aminotransferase 27 U/L (0-33); Albumin Level 4.1 g/dL (3.5-5.2); Alkaline Phosphatase 99 IU/L (35-105); Aspartate Amino Transferase 24 U/L (0-32); Blood Urea Nitrogen 8 mg/dL (6-20); Calcium 8.4 mg/dL (8.5-10.5); Carbon Dioxide 19 mmol/L (22-29); Chloride 101 mmol/L (98-107); Glomerular Filtration Rate 136.6 mL/min (90-130); Glucose 92 mg/dL (65-115); Lipase 25 U/L (13-60); Osmolality Calculated 278 mOsm/kg (285-295); Sodium 135 mmol/L (136-145); Total Bilirubin 0.5 mg/dL (0.15-1.2); Total Protein 7.1 g/dL (6.6-8.7)
[2021-05-10 11:12] VITALS: BP 124/78; PULSE 84; RESP 15; O2SAT 99
--- NOTE | 2021-05-15 12:40 | DCPLANNER ---
barn and property manager had message to speak with patient about getting established with a primary care physician. barn and property manager unable to speak with patient at this time.
== END 2021-05-10 11:08 | disposition home or self-care (01) ==
PROVIDERS: Emergency Provider Physician Assistant; PCP Nurse Practitioner Family
DX: R07.9 Chest pain, unspecified (principal); Z77.22 Contact with and (suspected) exposure to environmental tobacco smoke (acute) (chronic)
CPT/HCPCS: 36415; 71045; 80053; 83690; 85025; 93005; 99283

== ENCOUNTER → 2021-05-22 12:22 | Outpatient (BNVA) | payer OTHER, SELFPAY | PROVIDERS: PCP Nurse Practitioner Family; Visit Provider Nurse Practitioner Family | DX: R05.9 Cough, unspecified (principal); Z20.822 Contact with and (suspected) exposure to COVID-19 | CPT/HCPCS: 87635 ==

== ENCOUNTER 2021-07-23 06:36 | Day surgery (SDC) | payer SELFPAY ==
[2021-07-18 13:01] VITALS: BMI 35.9
--- NOTE | 2021-07-23 06:44 | W.PM.OPSUD ---
Surgery/Procedure H&P Update DATE OF PROCEDURE: July 23, 2021 DATE H&P PERFORMED: 07/02/21 CHANGES TO PREVIOUS DOCUMENTATION: NONE PREOP DIAGNOSIS: EPIGASTRIC PAIN PRIMARY INDICATION FOR PROCEDURE: THE SAME PLANNED PROCEDURE: Operation Date: 07/23/21 08:00 Proposed Procedures p EGD 35280/r10.13(Not Applicable) - Mingo Aguilar MD
--- NOTE | 2021-07-23 06:50 | P.ANESASSM_ITS ---
Pre-Anesthetic Assessment Height/Weight: Height 1.65 m Weight 97.976 kg Preop Diagnosis: EPIGASTRIC PAIN Operation Date: 07/23/21 08:00 Proposed Procedures p EGD 81455/r10.13(Not Applicable) - Mingo Aguilar MD Familial anesthetic complications: None Was Beta Juanito taken within 24 hours: N/A Was Clonidine taken within 24 hours: N/A Last intake: > 8hrs Social No alcohol and No tobacco Exam alert, oriented x 3, clear to auscultation bilaterally and regular rate & rhythm Airway Mallampati: Class II Dentition: full Pulmonary None reported CV/HEM None reported None reported Hepatic None reported GI Gastroesophageal Reflux Disease (severe) Metabolic None reported Musc/skel Lower Back Pain neck and shoulder pain Neuropsych None reported Anesthetic Plan ASA status: 2 Anesthesia: MAC Medications/Allergies Home Medications Medication Instructions Recorded Confirmed Last Taken Type fluoxetine 40 mg capsule 40 mg PO DAILY #30 cap 05/12/21 07/21/21 Unknown Rx risperidone 0.5 mg tablet 0.5 mg PO BID #60 tab 05/12/21 07/21/21 Unknown Rx (Risperdal) trazodone 50 mg tablet 100 mg PO .HS PRN #60 tab 05/12/21 07/21/21 Unknown Rx Allergies Allergy/AdvReac Type Severity Reaction Status Date / Time No Known Allergies Allergy Verified 07/02/21 16:40 [facility] Anesthesia Medical History No pertinent past medical history Psychiatric care Surgical History No history of previous surgery Family History Other Cancer Denies family history of Diabetes CAD (coronary artery disease) Dementia Chronic kidney disease (CKD) Anesthesia complication Bleeding disorder Lung disease Stroke Social History Smoking and tobacco status: never smoked Second hand smoke exposure: Yes Alcohol intake: former Caregiver/support person: Yes (spouse) Lives independently: Yes Household members: spouse and children Marital status: service: No Current occupational status: unemployed History of recent travel: No Current gender identity: Female Special jaydon needs: No Female Reproductive History Date of last menstrual period: 05/05/21 Data Anesthesia Cardiac Studies: No Data to Display
[2021-07-23 07:05] LABS: OR HCG Qualitative Urine Negative (Negative)
[2021-07-23 07:07] VITALS: BP 120/73; PULSE 95; RESP 18; TEMP 36.1; O2SAT 99
[2021-07-23] MEDS: sodium chloride 0.9% 1,000 ML 30 ML IV (07:12)
[2021-07-23 08:19] VITALS: BP 126/69; PULSE 96; RESP 20; TEMP 36.5; O2SAT 97
[2021-07-23 08:37] VITALS: BP 105/78; PULSE 76; RESP 20; TEMP 36.6; O2SAT 99
--- NOTE | 2021-07-23 12:21 | ANE.PACU2 ---
Inpatient post-anesthesia follow up: Airway intact: Yes Vital signs: Temperature 97.9 F Pulse Rate 76 Respiratory Rate 20 Blood Pressure 105/78 Pulse Oximetry 99 Oxygen Delivery Me thod Room Air Oxygen Flow Rate Fraction of Inspir ed Oxygen Hydration adequate: Yes Nausea and vomiting: No Pain level: 1 Mental status: Baseline
== END 2021-07-23 08:47 | disposition home or self-care (01) ==
PROVIDERS: Anesthesiology; PCP Nurse Practitioner Family; Visit Provider Surgery
PROC: 0DJ08ZZ Inspection of Upper Intestinal Tract, Via Natural or Artificial Opening Endoscopic (ICD-10-PCS; CPT 43235; principal; 2021-07-23 08:00)
DX: R10.13 Epigastric pain (principal); K21.00 Gastro-esophageal reflux disease with esophagitis, without bleeding; K29.70 Gastritis, unspecified, without bleeding; K29.80 Duodenitis without bleeding
CPT/HCPCS: 43239; 81025; 84703; 88305; J2704; J7030

== ENCOUNTER 2021-11-17 08:42 | Emergency (ER) | payer SELFPAY ==
[2021-11-17 08:49] VITALS: BP 130/87; PULSE 92; RESP 15; TEMP 36.6; O2SAT 98; BMI 32.9
--- NOTE | 2021-11-17 09:02 | ED_ITS ---
HPI - Abdominal Pain General: Chief Complaint: Abdominal Pain Stated Complaint: Abd pain Time Seen by Provider: 11/17/21 08:58 Source: patient Mode of arrival: ambulatory Limitations: no limitations History of Present Illness: 41-year-old female presents emergency room complaining of epigastric discomfort rating into the into the right upper quadrant. No hematemesis coffee ground emesis no fever she states its worse when she lays down and better when she is upright worse when she walks. She is on no PPI. She denies any chest pain or shortness of breath. Patient has a history of esophagitis are also notations in the chart about alcohol use that is chronic MD elicited complaint: abdominal pain Onset (ago): day(s) Pain Consistency: intermittent and colicky Location: Epigastric Quality: cramping Radiation: none Exacerbating factors: other (laying, walking) Relieving factors: other (sitting upright) Associated Symptoms: Reports dyspepsia, nausea and poor appetite; Denies anorexia, belching, bloating, change in bowel habits, change in stool character, chills, coffee ground emesis, constipation, GI cramping, diarrhea, dysuria, excessive flatus, fever(s), heartburn, hematochezia, hematuria, hematemesis, fecal incontinence, loose stools, melena, syncope and vomiting Related Data: Date of Last Menstrual Period: 05/05/21 Review of Systems Const: Denies: fever(s), chills, fatigue or malaise ENMT: Denies: throat pain, ear or mastoid pain, nasal discharge or nasal congestion Card: Denies: syncope Resp: Denies: dyspnea, productive cough or non-productive cough GI: Reports: nausea; Denies: vomiting, hematemesis, coffee ground emesis, heartburn, diarrhea, constipation, bloating, GI cramping, belching, excessive flatus, fecal incontinence, change in bowel habits, change in stool character, hematochezia or melena : Denies: flank pain, difficulty voiding, dysuria, urinary frequency, urinary urgency or hematuria Musc: Denies: neck pain or back pain Skin/Breast: Denies: rash or pruritus PFSH ED PFSH: Medical History No pertinent past medical history Psychiatric care Surgical History No history of previous surgery Family History Other Cancer Denies family history of Diabetes CAD (coronary artery disease) Dementia Chronic kidney disease (CKD) Anesthesia complication Bleeding disorder Lung disease Stroke Social History Smoking and tobacco status: never smoked Second hand smoke exposure: No Alcohol intake: former Caregiver/support person: Yes (spouse) Lives independently: Yes Household members: spouse and children Marital status: service: No Current occupational status: unemployed History of recent travel: No Current gender identity: Female Special jaydon needs: No Female Reproductive History: Date of last menstrual period: 05/05/21 Physical Exam Const: GENERAL APPEARANCE: cooperative and comfortable ORIENTATION/CONSCIOUSNESS: Yes awake, Yes oriented to person, Yes oriented to place and Yes oriented to time HENMT: COMMON NORMALS: normocephalic, atraumatic and hearing grossly normal bilaterally HEAD & SCALP: normocephalic and atraumatic Resp: COMMON NORMALS: normal respiratory effort, No retractions, No use of ac cessory muscles and clear to auscultation bilaterally AUSCULTATION: clear to auscultation bilaterally Cardio: COMMON NORMALS: regular rate, regular rhythm and No murmurs present (Cardio) RATE: regular rate RHYTHM: regular rhythm GI: COMMON NORMALS: No hepatosplenomegaly present AUSCULTATION: Yes normoactive bowel sounds PALPATION: Yes Tenderness to palpation present (GI) (epigastric right upper quadrant), No Guarding due to palpation present (GI) and Yes No hepatosplenomegaly present Extremity: COMMON NORMALS: normal to inspection, capillary refill normal, no clubbing, cyanosis or edema, no calf tenderness and no pedal edema Neuro: SENSORIUM/ORIENTATION: Yes oriented to person, Yes oriented to place and Yes oriented to time Skin: COMMON NORMALS: no rashes or lesions noted GENERAL SKIN EXAM: no rashes or lesions noted Course Vital Signs: Vital signs: Vital Signs Temperature 97.8 F 11/17/21 08:49 Pulse Rate 89 11/17/21 12:34 Respiratory Rate 18 11/17/21 12:00 Blood Pressure 110/70 11/17/21 12:34 Pulse Oximetry 98 07/11/22 12:34 MDM - Abdominal Pain Medical Decision Making Labs and imaging reviewed. Liver functions are normal white count unremarkable suspect she has more reflux esophagitis, add Carafate. Modified diet follow-up with primary care return if is worsening problems. Medical Records I reviewed the patient's medical records. Lab Data I reviewed the patient's lab results. : 11/17/21 09:54 11/17/21 09:54 Labs/Radiology: Radiology Impressions Abdomen/Pelvis CT 11/17/21 09:07 IMPRESSION: 1. No acute abdominal or pelvic abnormalities are identified. 2. No renal obstruction or perinephric stranding. 3. No bile duct dilatation. 4. Gallbladder appears negative by noncontrast CT. 5. Negative appendix. Laboratory Results WBC 8.4 10^3/uL (4.0-10.0) 11/17/21 09:54 RBC 5.12 10^6/uL (4.1-5.3) 11/17/21 09:54 Hgb 14.9 g/dL (11.5-15.3) 11/17/21 09:54 Hct 44.4 % (37.0-47.0) 11/17/21 09:54 MCV 86.7 fl (81-99) 11/17/21 09:54 MCH 29.1 pg (28.0-34.0) 11/17/21 09:54 MCHC 33.6 g/dL (30.0-36.0) 11/17/21 09:54 RDW 13.6 % (12.1-15.1) 11/17/21 09:54 Plt Count 291 10^3/cmm (130-400) 11/17/21 09:54 MPV 10.2 fL (7.4-10.4) 11/17/21 09:54 Neut % (Auto) 57.7 % 11/17/21 09:54 Lymph % (Auto) 34.4 % 11/17/21 09:54 [place] % (Auto) 5.8 % 11/17/21 09:54 Eos % (Auto) 1.3 % 11/17/21 09:54 Baso % (Auto) 0.2 % 11/17/21 09:54 Neut # (Auto) 4.86 10^3/uL (1.8-7.7) 11/17/21 09:54 Lymph # (Auto) 2.9 10^3/uL (0.8-4.8) 11/17/21 09:54 [place] # (Auto) 0.5 10^3/uL (0.2-0.9) 11/17/21 09:54 Eos # (Auto) 0.1 10^3/uL (0.0-0.8) 11/17/21 09:54 Baso # (Auto) 0.0 10^3/uL (0.0-0.1) 11/17/21 09:54 Nucleated RBC % (auto) 0 % 11/17/21 09:54 Nucleated RBCs # 0.0 /100WBC 11/17/21 09:54 Sodium 136 mmol/L (136-145) 11/17/21 09:54 Potassium 4.2 mmol/L (3.5-5.1) 11/17/21 09:54 Chloride 102 mmol/L (98-107) 11/17/21 09:54 Carbon Dioxide 23 mmol/L (22-29) 11/17/21 09:54 Anion Gap 15.2 (5-19) 11/17/21 09:54 BUN 12 mg/dL (6-20) 11/17/21 09:54 Creatinine 0.7 mg/dL (0.5-0.9) 11/17/21 09:54 GFR Calculation 92.7 mL/min (90-130) 11/17/21 09:54 Glucose 91 mg/dL (65-115) 11/17/21 09:54 Calculated Osmolality 281 mOsm/kg (285-295) L 11/17/21 09:54 Calcium 8.5 mg/dL (8.5-10.5) 11/17/21 09:54 Total Bilirubin 0.4 mg/dL (0.15-1.2) 11/17/21 09:54 AST 17 U/L (0-32) 11/17/21 09:54 ALT 16 U/L (0-33) 11/17/21 09:54 Alkaline Phosphatase 87 IU/L (35-105) 11/17/21 09:54 Total Protein 7.4 g/dL (6.6-8.7) 11/17/21 09:54 Albumin 4.3 g/dL (3.5-5.2) 11/17/21 09:54 Globulin 3.1 g/dL (1.3-4.6) 11/17/21 09:54 Lipase 34 U/L (13-60) 11/17/21 09:54 HCG, Qual Negative (Negative) 11/17/21 09:54 Urine Color Yellow (Yellow) 11/17/21 10:17 Urine Appearance Clear (CLEAR) 11/17/21 10:17 Urine pH 6.5 (5-7) 11/17/21 10:17 Ur Specific [place] 1.010 (1.005-1.030) 11/17/21 10:17 Urine Protein Neg (Negative) 11/17/21 10:17 Urine Glucose (UA) Norm (Normal) 11/17/21 10:17 Urine Ketones Negative (Negative) 11/17/21 10:17 Urine Blood Neg (Negative) 11/17/21 10:17 Urine Nitrate Negative (Negative) 11/17/21 10:17 Urine Bilirubin Neg (Negative) 11/17/21 10:17 Urine Urobilinogen Norm mg/dL (Negative) 11/17/21 10:17 Ur Leukocyte Esterase Negative (Negative) 11/17/21 10:17 Discharge Plan Discharge Patient Disposition: Home Clinical Impression: Esophagitis Condition: Stable Prescriptions: New Carafate 1 gram tablet 1 g PO Q6H 84 Days Qty: 336 0RF No Action risperidone [Risperdal] 0.5 mg tablet 0.5 mg PO BID Qty: 60 2RF bupropion HCl [Wellbutrin XL] 150 mg tablet extended release 24 hr 150 mg PO QAM Qty: 30 2RF naltrexone 50 mg tablet 50 mg PO DAILY Qty: 30 2RF Protonix 40 mg tablet,delayed release (DR/EC) 40 mg PO BID Qty: 60 3RF trazodone 50 mg tablet 100 mg PO BEDTIME PRN (Reason: insomnia) 0RF Ozempic 0.25 mg or 0.5 mg(2 mg/1.5 mL) pen injector 0.5 mg SUBCUT .WEEKLY 0RF Rx Instructions: on fridays Discharge Orders: Discharge ED (Routine); Ordered 11/17/21 Ordered By: Jorge Ryan Referrals: Luisa Alonzo FNP [Primary Care Provider] - Discharge Diet: As Directed Discharge Activity: Increase activity as tolerated Patient Instructions: Diet for Stomach Ulcers and Gastritis (ED), GERD (Gastroesophageal Reflux Disease) (ED), Esophagitis (ED), Opioid Safety Activity Restrictions/Additional Instructions: Follow-up with your primary care doctor within the week Coding Level of Care Code ED Hotel Yardperson for Chg Fwd Exam Comprehensive
--- NOTE | 2021-11-17 09:07 | CT_ITS ---
WS: [id number] CT ABDOMEN AND PELVIS NONCONTRAST HISTORY: Abdominal pain TECHNIQUE: Imaging performed through the abdomen and pelvis. Coronal and sagittal reformats are submi tted. All CT scans at [facility] use at least one of these dose optimization techniques: auto mated exposure control; mA and/or kV adjustment per patient size (includes targeted exams where dose is matched to clinical indication); or iterative reconstruction. DLP: 1224.67 mGy.cm COMPARISON: None available. Lower thorax: Lung bases are clear. Visualized heart is normal. No hiatal hernia. Liver: Mild variable attenuation throughout the liver is probably due to hepatic steatosis. No mass i dentified on this unenhanced exam. No bile duct dilatation. Gallbladder: Normal gallbladder. Pancreas: Normal size and attenuation. Normal pancreatic duct. No pancreatitis or mass. Spleen: Normal. Adrenal glands: Normal. No mass. Right kidney: Normal size kidney with no mass or hydronephrosis. Left kidney: Normal size kidney with no mass or hydronephrosis. Aorta: Normal abdominal aorta, no aneurysm or atherosclerosis. No free fluid, intraperitoneal air or significant lymphadenopathy. GI tract: Normal appendix. No GI tract obstruction or diverticulosis. Mild constipation. No wall thic kening. No diverticulosis. Abdominal wall: Fat-containing umbilical hernia. Pelvis: Uterus appears mildly prominent by CT. Mild fluid distention of the endometrial canal likely related to menses. Both ovaries are identified and normal size. No free fluid in the pelvis. Osseous structures: A benign bone island RIGHT femoral head. CT/CT abdomen pelvis wo con [id number] IMPRESSION: 1. No acute abdominal or pelvic abnormalities are identified. 2. No renal obstruction or perinephric stranding. 3. No bile duct dilatation. 4. Gallbladder appears negative by noncontrast CT. 5. Negative appendix.
[2021-11-17 09:46] VITALS: RESP 16; O2SAT 99
[2021-11-17] MEDS: ondansetron 2 mg/ML SDV 2 mL 4 MG IVP (09:46)
[2021-11-17] MEDS: morphine 4 mg/mL SDV 1 mL IVP (09:46)
--- NOTE | 2021-11-17 09:51 | PC.PHAR ---
pt states she takes care of her own medications-pt states she stop taking naltrexone 50mg daily (filled on 10/27/21 30d/s) and bupropion xl 150mg daily (filled on 10/27/21 30d/s) about a week and a half ago pt states this medication was making her sick-notes are made in the pharmacy comments
[2021-11-17 10:00] VITALS: BP 129/72; PULSE 79; RESP 18; O2SAT 97
[2021-11-17 10:00] LABS: Basophils % 0.2 %; Eosinophils # 0.1 10^3/uL (0.0-0.8); Eosinophils % 1.3 %; Hematocrit 44.4 % (37.0-47.0); Hemoglobin 14.9 g/dL (11.5-15.3); Lymphocytes # 2.9 10^3/uL (0.8-4.8); Lymphocytes % 34.4 %; Mean Corpuscular HGB Conc 33.6 g/dL (30.0-36.0); Mean Corpuscular Hemoglobin 29.1 pg (28.0-34.0); Mean Corpuscular Volume 86.7 fl (81-99); Mean Platelet Volume 10.2 fL (7.4-10.4); Monocytes # 0.5 10^3/uL (0.2-0.9); Monocytes % 5.8 %; Neutrophils # 4.86 10^3/uL (1.8-7.7); Neutrophils % 57.7 %; Nucleated Red Blood Cells % 0 %; Platelet Count 291 10^3/cmm (130-400); Red Blood Count 5.12 10^6/uL (4.1-5.3); Red Cell Distribution Width 13.6 % (12.1-15.1); White Blood Count 8.4 10^3/uL (4.0-10.0)
[2021-11-17 10:18] LABS: HCG, Serum Qual Negative (Negative)
[2021-11-17 10:32] LABS: Alanine Aminotransferase 16 U/L (0-33); Albumin Level 4.3 g/dL (3.5-5.2); Alkaline Phosphatase 87 IU/L (35-105); Aspartate Amino Transferase 17 U/L (0-32); Blood Urea Nitrogen 12 mg/dL (6-20); Calcium 8.5 mg/dL (8.5-10.5); Carbon Dioxide 23 mmol/L (22-29); Chloride 102 mmol/L (98-107); Globulin 3.1 g/dL (1.3-4.6); Glomerular Filtration Rate 92.7 mL/min (90-130); Glucose 91 mg/dL (65-115); Lipase 34 U/L (13-60); Osmolality Calculated 281 mOsm/kg (285-295); Sodium 136 mmol/L (136-145); Total Bilirubin 0.4 mg/dL (0.15-1.2); Total Protein 7.4 g/dL (6.6-8.7)
[2021-11-17 10:37] LABS: Add Urine Microscopic? NO; Charge for UA Resulting for Rev
[2021-11-17 10:41] LABS: Anion Gap 15.2 (5-19); Potassium 4.2 mmol/L (3.5-5.1)
[2021-11-17 10:47] LABS: Bilirubin Urine Neg (Negative); Blood Urine Neg (Negative); Glucose Urine UA Norm (Normal); Ketones Urine Negative (Negative); Leukocyte Esterase Urine Negative (Negative); Nitrate Urine Negative (Negative); Protein Urine Neg (Negative); Urine Appearance Clear (CLEAR); Urine Color Yellow (Yellow); Urobilinogen Urine Norm (Negative); pH Urine 6.5 (5-7)
[2021-11-17 11:00] VITALS: BP 107/78; PULSE 74; RESP 16; O2SAT 97
[2021-11-17 12:00] VITALS: BP 110/70; PULSE 85; RESP 18; O2SAT 95
[2021-11-17] MEDS: lidocaine 2% viscous 15 ML, aluminum-mag hydrox-simethicon 30 ML, sucralfate oral liq 1 GM PO (12:24)
[2021-11-17 12:34] VITALS: BP 110/70; PULSE 89; O2SAT 98
== END 2021-11-17 12:36 | disposition home or self-care (01) ==
PROVIDERS: Emergency Provider Family Medicine; PCP Nurse Practitioner Family
DX: K20.90 Esophagitis, unspecified without bleeding (principal)
CPT/HCPCS: 74176; 80053; 81003; 83690; 84703; 85025; 96374; 96375; 99285; J2270; J2405

== ENCOUNTER → 2022-02-25 17:24 | Outpatient (BNVA) | payer MEDICAID, SELFPAY | PROVIDERS: PCP Nurse Practitioner Family; Visit Provider Nurse Practitioner Family | DX: R30.9 Painful micturition, unspecified (principal); Z20.5 Contact with and (suspected) exposure to viral hepatitis; R10.31 Right lower quadrant pain; Z11.3 Encounter for screening for infections with a predominantly sexual mode of transmission | CPT/HCPCS: 80053; 81000; 81003; 85025; 86592; 86695; 86696; 86705; 86706; 86709; 86803; 87340; 87491; 87591; 87661; 87806 ==

== ENCOUNTER 2022-05-02 20:59 | Emergency (ER) | payer MEDICAID, SELFPAY ==
[2022-05-02 21:01] VITALS: BP 115/56; PULSE 108; RESP 16; TEMP 37.1; O2SAT 99
--- NOTE | 2022-05-02 21:10 | ECG_ITS ---
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 Measurements Intervals [place] Rate: 110 P: 47 TN: 127 QRS: 11 QRSD: 89 T: 47 QT: 315 QTc: 427 Interpretive Statements SINUS TACHYCARDIA Compared to ECG 05/10/2021 09:03:14 Sinus rhythm no longer present Electronically Signed On 05-03-2022 8:16:32 SHELL PLATER by Jessica Richmond M.D. [id number] f
[2022-05-02 22:21] VITALS: BP 117/41; PULSE 79; RESP 28; O2SAT 97
--- NOTE | 2022-05-02 22:21 | PC.NURSE ---
EKG signed in chart by doctor
--- NOTE | 2022-05-02 22:25 | XRR_ITS ---
PROCEDURE INFORMATION: Exam: XR Chest Exam date and time: 05/02/2022 11:24 PM Age: 42 years old Clinical indication: Pain; Chest pressure; Additional info: Cp TECHNIQUE: Imaging protocol: Radiologic exam of the chest. Views: 1 view. COMPARISON: CR XR chest 1V portable [id number] 05/10/2021 9:24 AM FINDINGS: Lungs: Unremarkable. No consolidation. Pleural spaces: Unremarkable. No pleural effusion. No pneumothorax. Heart/Mediastinum: Unremarkable. No cardiomegaly. Bones/joints: Unremarkable. XR/XR chest 1V portable [id number] IMPRESSION: No acute findings.
[2022-05-02 22:33] LABS: Basophils # 0.1 10^3/uL (0.0-0.1); Basophils % 0.5 %; Eosinophils # 0.1 10^3/uL (0.0-0.8); Hematocrit 45.1 % (37.0-47.0); Lymphocytes # 2.3 10^3/uL (0.8-4.8); Lymphocytes % 19.9 %; Mean Corpuscular HGB Conc 33.3 g/dL (30.0-36.0); Mean Corpuscular Hemoglobin 29.9 pg (28.0-34.0); Mean Platelet Volume 10.7 fL (7.4-10.4); Monocytes # 0.7 10^3/uL (0.2-0.9); Monocytes % 5.8 %; Neutrophils # 8.38 10^3/uL (1.8-7.7); Neutrophils % 71.9 %; Nucleated Red Blood Cells % 0 %; Platelet Count 277 10^3/cmm (130-400); Red Blood Count 5.01 10^6/uL (4.1-5.3); Red Cell Distribution Width 13.6 % (12.1-15.1); White Blood Count 11.7 10^3/uL (4.0-10.0)
[2022-05-02] MEDS: lidocaine 2% viscous 15 ML, aluminum-mag hydrox-simethicon 30 ML, sucralfate oral liq 1 GM PO (22:39)
[2022-05-02 22:46] LABS: D Dimer 1.09 ug/mIFEU (0-0.59)
[2022-05-02] MEDS: morphine 4 mg/mL SDV 1 mL IVP (22:46)
[2022-05-02] MEDS: ketorolac 30 mg/mL INJ 15 MG IVP (22:46)
[2022-05-02] MEDS: ondansetron 2 mg/ML SDV 2 mL 4 MG IVP (22:46)
--- NOTE | 2022-05-02 22:47 | W.ED.CHESTPA ---
HPI - Chest Pain General: Chief Complaint: Chest Pain Stated Complaint: fall, chest/shoulder pain Time Seen by Provider: 05/02/22 22:02 History of Present Illness: 42-year-old female complains of 3 days of right-sided chest discomfort. She notes that it is sharp, radiates into her back and shoulder, and is worse with movement and deep breaths. She is not overly short of breath. She does note that she threw up last night because of the pain. When asked why she came in [facility], she says I could not take it anymore . She denies fever or significant cough she notes that her tried to pop her back earlier today which may or may not have made it worse. She has a history of gastritis, but does not have a history of coronary disease. MD complaint: chest pain Pertinent past history: other Onset (ago): day(s) Timing of current episode: constant Prior episodes: No Onset: during rest Pain location: right chest Pain radiation: back and right shoulder Relieving factors: nothing Exacerbating factors: inspiration and movement Associated symptoms: Reports abdominal pain (More chronic), nausea and vomiting; Deny diaphoresis, dyspnea, fever(s) or leg edema Treatment prior to arrival: none Review of Systems Const: Denies: fever(s) or diaphoresis ENMT: Denies: throat pain Card: Reports: chest pain Resp: Denies: dyspnea, productive cough or non-productive cough GI: Reports: abdominal pain (More chronic), nausea and vomiting Musc: Reports: back pain Skin/Breast: Denies: rash Psych: Reports: anxiety [facility] ED PFSH: Medical History No pertinent past medical history Psychiatric care Surgical History History of 2011 History of esophagogastroduodenoscopy History of tubal ligation 2011 No history of previous surgery Family History Other Cancer Denies family history of Diabetes CAD (coronary artery disease) Dementia Chronic kidney disease (CKD) Anesthesia complication Bleeding disorder Lung disease Stroke Social History Smoking and tobacco status: never smoked Second hand smoke exposure: No Alcohol intake: former Caregiver/support person: Yes (spouse) Lives independently: Yes Household members: children Marital status: Legally service: No Current occupational status: unemployed History of recent travel: No Current gender identity: Female Special jaydon needs: No Female Reproductive History: Date of last menstrual period: 05/05/21 Physical Exam Const: COMMON NORMALS: no acute distress GENERAL APPEARANCE: cooperative; not ill appearing and not frail appearing HENMT: COMMON NORMALS: normocephalic, atraumatic and Normal external nose present HEAD & SCALP: normocephalic and atraumatic FACE & SINUS: normal facial exam and face symmetric NOSE: Normal external nose present Eye: COMMON NORMALS: Equal, round and reactive pupils present and EOMs intact bilaterally PUPIL: Yes Equal, round and reactive pupils present Neck/C-Spine: GENERAL: Yes trachea midline Chest: CHEST: Yes Symmetrical chest wall rise and Yes tenderness ([place]) rib Resp: COMMON NORMALS: normal respiratory effort, No retractions, No use of accessory muscles and clear to auscultation bilaterally AUSCULTATION: clear to auscultation bilaterally Cardio: COMMON NORMALS: regular rate and regular rhythm RATE: regular rate RHYTHM: regular rhythm GI: COMMON NORMALS: Normal to inspection, nondistended, normoactive bowel sounds present PALPATION: Yes Tenderness to palpation present (GI) (epigastric) : COMMON NORMALS: Yes no CVA tenderness BLADDER/KIDNEY EXAM: Yes no CVA tenderness Back/Pelvis: COMMON NORMALS: no CVA tenderness Extremity: COMMON NORMALS: no pedal edema Neuro: ERICK COMA SCALE: document GCS findings Erick coma scale eye opening: Spontaneous [place] coma scale verbal response: Orientated [place] coma scale motor response: Obey commands Erick coma scale total score: 15 SENSORY EXAM: Yes extremities (intact) Psych: COMMON NORMALS: speech normal ATTITUDE: Yes Other attitude/behavior findings present (Psych) (anxious) SPEECH: Yes normal speech Skin: COMMON NORMALS: no rashes or lesions noted GENERAL SKIN EXAM: no rashes or lesions noted Course Vital Signs: Vital signs: Vital Signs Temperature 98.7 F 05/02/22 21:01 Pulse Rate 107 H 05/02/22 22:48 Respiratory Rate 18 05/02/22 22:48 Blood Pressure 124/56 05/02/22 22:48 Pulse Oximetry 98 05/02/22 22:48 Oxygen Delivery Me thod 05/02/22 22:48 MDM - Chest Pain Medical Decision Making 42-year-old female with atypical reproducible chest pain. Chest x-ray is negative. EKG does not show any acute ST changes. Troponin was normal. CTA is performed due to elevated D-dimer, which is negative for PE. She has some dependent atelectasis. Pain is reproducible, she will be prescribed anti-inflammatories for this. The patient also later complained of dysuria, and some vaginal pain. Evidently, the patient had a lost tampon for about 3 weeks prior. Pelvic exam was performed. No evidence of retained vaginal foreign body. Wet prep was obtained, but not run due to lab error. Urinalysis shows urinary tract infections although the sample is mildly contaminated. Antibiotics were called in for the patient. Lab Data 05/02/22 22:19 05/02/22 22:19 Radiology Impressions Chest X-Ray 05/02/22 22:25 IMPRESSION: No acute findings. Chest/Abdomen/Pelvis CT 05/02/22 22:59 IMPRESSION: 1. Negative for pulmonary embolus. 2. Minimal bilateral dependent atelectasis. IMPRESSION: 1. Mildly prominent fluid in small bowel without dilation may reflect an enteritis in the appropriate clinical setting. 2. Bilateral subcentimeter renal cysts, negative for follow-up advised. COMMENTS: Consistent with the [place] [employer]'s Incidental Findings Committee white paper (J Am Derrek Radiol 2018): Any incidental renal lesion less than 1 cm or classified as too small to characterize, or any incidental cystic renal lesion characterized as simple-appearing, is likely benign. No follow-up imaging is recommended for these lesions per consensus recommendations based on imaging criteria. Laboratory Results WBC 11.7 10^3/uL (4.0-10.0) H 05/02/22 22:19 RBC 5.01 10^6/uL (4.1-5.3) 05/02/22 22:19 Hgb 15.0 g/dL (11.5-15.3) 05/02/22 22:19 Hct 45.1 % (37.0-47.0) 05/02/22 22:19 MCV 90.0 fl (81-99) 05/02/22 22:19 MCH 29.9 pg (28.0-34.0) 05/02/22 22:19 MCHC 33.3 g/dL (30.0-36.0) 05/02/22 22:19 RDW 13.6 % (12.1-15.1) 05/02/22 22:19 Plt Count 277 10^3/cmm (130-400) 05/02/22 22:19 MPV 10.7 fL (7.4-10.4) H 05/02/22 22:19 Neut % (Auto) 71.9 % 05/02/22 22:19 Lymph % (Auto) 19.9 % 05/02/22 22:19 [place] % (Auto) 5.8 % 05/02/22 22:19 Eos % (Auto) 1.0 % 05/02/22 22:19 Baso % (Auto) 0.5 % 05/02/22 22:19 Neut # (Auto) 8.38 10^3/uL (1.8-7.7) H 05/02/22 22:19 Lymph # (Auto) 2.3 10^3/uL (0.8-4.8) 05/02/22 22:19 [place] # (Auto) 0.7 10^3/uL (0.2-0.9) 05/02/22 22:19 Eos # (Auto) 0.1 10^3/uL (0.0-0.8) 05/02/22 22:19 Baso # (Auto) 0.1 10^3/uL (0.0-0.1) 05/02/22 22:19 Nucleated RBC % (auto) 0 % 05/02/22 22:19 Nucleated RBCs # 0.0 /100WBC 05/02/22 22:19 D-Dimer 1.09 ug/mIFEU (0-0.59) H 05/02/22 22:19 Sodium 137 mmol/L (136-145) 05/02/22 22:19 Potassium 3.7 mmol/L (3.5-5.1) 05/02/22 22:19 Chloride 98 mmol/L (98-107) 05/02/22 22:19 Carbon Dioxide 27 mmol/L (22-29) 05/02/22 22:19 Anion Gap 15.7 (5-19) 05/02/22 22:19 BUN 5 mg/dL (6-20) L 05/02/22 22:19 Creatinine 0.6 mg/dL (0.5-0.9) 05/02/22 22:19 GFR Calculation 110.2 mL/min (90-130) 05/02/22 22:19 Glucose 88 mg/dL (65-115) 05/02/22 22:19 Calculated Osmolality 281 mOsm/kg (285-295) L 05/02/22 22:19 Calcium 9.5 mg/dL (8.5-10.5) 05/02/22 22:19 Total Bilirubin 0.9 mg/dL (0.15-1.2) 05/02/22 22:19 AST 261 U/L (0-32) H 05/02/22 22:19 ALT 678 U/L (0-33) H 05/02/22 22:19 Alkaline Phosphatase 251 U/L (35-105) H 05/02/22 22:19 Troponin T Gen 5 ng/L 6 ng/L (0-10) 05/02/22 22:19 C-Reactive Protein 33.0 mg/L (0.0-4.9) H 05/02/22 22:19 Total Protein 8.2 g/dL (6.6-8.7) 05/02/22 22:19 Albumin 4.2 g/dL (3.5-5.2) 05/02/22 22:19 Globulin 4.0 g/dL (1.3-4.6) 05/02/22 22:19 Lipase 35 U/L (13-60) 05/02/22 22:19 HCG, Qual Negative (Negative) 05/02/22 22:19 Urine Color Yellow (Yellow) 05/03/22:26 Urine Appearance Sl hazy (CLEAR) A 05/03/22: Urine pH 9 (5-7) H 05/03/22: Ur Specific [place] 1.010 (1.005-1.030) 05/03/22:26 Urine Protein Neg (Negative) 05/03/22: Urine Glucose (UA) Norm (Normal) 05/03/22: Urine Ketones Negative (Negative) 12/25/22 01:26 Urine Blood 2+ (Negative) H 05/03/22 01:26 Urine Nitrate Negative (Negative) 05/03/22 01:26 Urine Bilirubin Neg (Negative) 05/03/22 01:26 Prot Sulfosalicylic Acd Negative (Negative) 05/03/22 01:26 Urine Urobilinogen 1 mg/dL (Negative) H 05/03/22 01:26 Ur Leukocyte Esterase 1+ (Negative) H 05/03/22 01:26 Urine RBC 0-4 /hpf (0-2) H 05/03/22 01:26 Urine WBC 40-55 /hpf (0-5) H 05/03/22 01:26 Ur Squamous Epith Cells 10-15 /hpf (0-5) H 05/03/22 01:26 Amorphous Sediment Not Reportable 05/03/22 01:26 Urine Bacteria 1+ /hpf (NONE) H 05/03/22 01:26 Discharge Plan Discharge Patient Disposition: Home Clinical Impression: Atypical chest pain, Dysuria, UTI (urinary tract infection) Condition: Stable Prescriptions: New ketorolac 10 mg tablet 10 mg PO TID PRN (Reason: pain) Qty: 10 0RF methocarbamol 750 mg tablet 750 mg PO TID Qty: 12 0RF Bactrim DS 800-160 mg tablet 1 tab PO DAILY 7 Days Qty: 14 0RF No Action sucralfate [Carafate] 1 gram tablet 1 g PO TID Qty: 30 0RF pantoprazole [Protonix] 40 mg tablet,delayed release (DR/EC) 40 mg PO BID Qty: 60 2RF fluconazole [Diflucan] 150 mg tablet 150 mg PO Q3D Qty: 2 0RF Rx Instructions: repeat in 72 hours if still symptomatic ondansetron HCl 4 mg tablet 4 mg PO Q8H Qty: 20 0RF Discharge Orders: Discharge ED (Routine); Ordered 05/03/22 Ordered By: Matt Galvan Referrals: Luisa Alonzo FNP [Primary Care Provider] - 4-7 days Patient Instructions: Chest Pain - Chest Wall, Dysuria (ED) Activity Restrictions/Additional Instructions: We will let you know if your wet prep or urinalysis is positive for any problems. Medication as directed for the thoracic/chest wall pain. See your doctor next week, as further outpatient testing or treatment may be needed. Return for worsening pain despite treatment, shortness of breath, fever, other concerning symptoms. Coding Level of Care Code ED Chest Pain Coordinator for Chg Fwd Exam Comprehensive
[2022-05-02 22:48] VITALS: BP 124/56; PULSE 107; RESP 18; O2SAT 98
[2022-05-02 22:48] LABS: HCG, Serum Qual Negative (Negative)
[2022-05-02 22:50] LABS: Troponin T (5th) Once 6 ng/L (0-10)
[2022-05-02 22:51] LABS: Alanine Aminotransferase 678 U/L (0-33); Albumin Level 4.2 g/dL (3.5-5.2); Alkaline Phosphatase 251 U/L (35-105); Anion Gap 15.7 (5-19); Aspartate Amino Transferase 261 U/L (0-32); Blood Urea Nitrogen 5 mg/dL (6-20); Calcium 9.5 mg/dL (8.5-10.5); Carbon Dioxide 27 mmol/L (22-29); Chloride 98 mmol/L (98-107); Glomerular Filtration Rate 110.2 mL/min (90-130); Glucose 88 mg/dL (65-115); Lipase 35 U/L (13-60); Osmolality Calculated 281 mOsm/kg (285-295); Potassium 3.7 mmol/L (3.5-5.1); Sodium 137 mmol/L (136-145); Total Bilirubin 0.9 mg/dL (0.15-1.2); Total Protein 8.2 g/dL (6.6-8.7)
--- NOTE | 2022-05-02 22:59 | CTR_ITS ---
PROCEDURE INFORMATION: Exam: CTA Chest With Contrast Exam date and time: 05/02/2022 11:30 PM Age: 42 years old Clinical indication: Abdominal pain; Localized; Right; Chest pressure; Additional info: Right sided chest/abd pain. Elevated d dimer TECHNIQUE: Imaging protocol: Computed tomographic angiography of the chest with contrast. 3D rendering (Not supervised by radiologist): MIP and/or 3D reconstructed images were created by the technologist. Radiation optimization: All CT scans at this facility use at least one of these dose optimization techniques: automated exposure control; mA and/or kV adjustment per patient size (includes targeted exams where dose is matched to clinical indication); or iterative reconstruction. Contrast material: OMNI 350; Contrast volume: 100 ml; Contrast route: INTRAVENOUS (IV); COMPARISON: CR (CHEST, ) 05/02/2022 11:24 PM RADIATION DOSE METRICS: Total DLP (mGy-cm): 924.72 FINDINGS: Pulmonary arteries: Normal. No pulmonary emboli. Aorta: Unremarkable. No aortic aneurysm. No aortic dissection. Lungs: Minimal bilateral dependent atelectasis. Pleural spaces: Unremarkable. No pneumothorax. No pleural effusion. Heart: Unremarkable. No cardiomegaly. No pericardial effusion. Lymph nodes: Unremarkable. No enlarged lymph nodes. Bones/joints: Unremarkable. No acute fracture. Soft tissues: Unremarkable. PROCEDURE INFORMATION: Exam: CT Abdomen And Pelvis With Contrast Exam date and time: 05/02/2022 11:30 PM Age: 42 years old Clinical indication: Abdominal pain; Localized; Right; Chest pressure; Additional info: Right sided chest/abd pain. Elevated d dimer TECHNIQUE: Imaging protocol: Computed tomography of the abdomen and pelvis with contrast. Radiation optimization: All CT scans at this facility use at least one of these dose optimization techniques: automated exposure control; mA and/or kV adjustment per patient size (includes targeted exams where dose is matched to clinical indication); or iterative reconstruction. Contrast material: OMNI 350; Contrast volume: 100 ml; Contrast route: INTRAVENOUS (IV); COMPARISON: CT abdomen pelvis wo con [id number] 11/17/2021 10:45 AM RADIATION DOSE METRICS: Total DLP (mGy-cm): 924.72 FINDINGS: Liver: Normal. No mass. Gallbladder and bile ducts: Normal. No calcified stones. No ductal dilation. Pancreas: Normal. No ductal dilation. Spleen: Normal. No splenomegaly. Adrenal glands: Normal. No mass. Kidneys and ureters: Bilateral subcentimeter renal cysts, negative for follow-up advised. Stomach and bowel: Mildly prominent fluid in small bowel without dilation may reflect an enteritis in the appropriate clinical setting. Appendix: No evidence of appendicitis. Intraperitoneal space: Unremarkable. No free air. No significant fluid collection. Vasculature: Unremarkable. No abdominal aortic aneurysm. Lymph nodes: Unremarkable. No enlarged lymph nodes. Urinary bladder: Unremarkable as visualized. Reproductive: Unremarkable as visualized. Bones/joints: Right femoral head 18 mm sclerotic bony lesion appears nonaggressive suggestive of a bone island. Soft tissues: Unremarkable. CT/CT angio chest w abd pel w con IMPRESSION: 1. Negative for pulmonary embolus. 2. Minimal bilateral dependent atelectasis. IMPRESSION: 1. Mildly prominent fluid in small bowel without dilation may reflect an enteritis in the appropriate clinical setting. 2. Bilateral subcentimeter renal cysts, negative for follow-up advised. COMMENTS: Consistent with the [employer]'s Incidental Findings Committee white paper (J Am Derrek Radiol 2018): Any incidental renal lesion less than 1 cm or classified as too small to characterize, or any incidental cystic renal lesion characterized as simple-appearing, is likely benign. No follow-up imaging is recommended for these lesions per consensus recommendations based on imaging criteria.
[2022-05-02] MEDS: iohexol 350 mg/mL 500 mL Btl (per mL) IV (23:13)
[2022-05-03 02:03] LABS: Urine Appearance SL Hazy (CLEAR); Urine Color Yellow (Yellow)
[2022-05-03 02:04] LABS: Bilirubin Urine Neg (Negative); Blood Urine 2+ (Negative); Glucose Urine UA Norm (Normal); Ketones Urine Negative (Negative); Leukocyte Esterase Urine 1+ (Negative); Nitrate Urine Negative (Negative); Protein Urine Neg (Negative); Urobilinogen Urine 1 mg/dL (Negative); pH Urine 9 (5-7)
[2022-05-03 02:05] LABS: Add Urine Culture? No; Add Urine Microscopic? YES; Bacteria Urine 1+ /hpf; RBC Urine 0-4 /hpf (0-2); Sulfosalicylic Acid Urine Negative (Negative); WBC Urine 40-55 /hpf (0-5)
== END 2022-05-03 01:34 | disposition home or self-care (01) ==
PROVIDERS: Emergency Provider Emergency Medicine; PCP Nurse Practitioner Family
DX: R07.89 Other chest pain (principal); N39.0 Urinary tract infection, site not specified; R30.0 Dysuria
CPT/HCPCS: 71045; 71275; 74177; 80053; 81001; 83690; 84484; 84703; 85025; 85378; 86140; 87070; 87077; 87186; 87205; 93005; 96374; 96375; 99285; J1885; J2270; J2405; Q9967

== ENCOUNTER 2022-05-15 19:12 | Emergency (ER) | payer MEDICAID, SELFPAY ==
[2022-05-15 19:17] VITALS: BP 120/66; PULSE 113; RESP 18; TEMP 36.6; O2SAT 99; BMI 22.6
--- NOTE | 2022-05-15 19:22 | ECG_ITS ---
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 [id number]
--- NOTE | 2022-05-15 19:26 | XRR_ITS ---
PROCEDURE INFORMATION: Exam: XR Chest Exam date and time: 05/15/2022 7:35 PM Age: 42 years old Clinical indication: Pain; Angina pectoris; Additional info: Chest pain TECHNIQUE: Imaging protocol: Radiologic exam of the chest. Views: 1 view. COMPARISON: CR (CHEST, ) 05/02/2022 11:24 PM FINDINGS: Lungs: Unremarkable. No consolidation. Pleural spaces: Unremarkable. No pleural effusion. No pneumothorax. Heart/Mediastinum: Unremarkable. No cardiomegaly. Bones/joints: Unremarkable. XR/XR chest 1V portable [id number] IMPRESSION: No acute findings.
--- NOTE | 2022-05-15 19:26 | ECG_ITS ---
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 [email or web address]
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
[2022-05-15 20:06] LABS: Basophils % 0.4 %; Eosinophils # 0.2 10^3/uL (0.0-0.8); Eosinophils % 1.9 %; Hematocrit 41.4 % (37.0-47.0); Mean Corpuscular HGB Conc 33.8 g/dL (30.0-36.0); Mean Corpuscular Hemoglobin 29.5 pg (28.0-34.0); Mean Corpuscular Volume 87.2 fl (81-99); Mean Platelet Volume 10.1 fL (7.4-10.4); Monocytes # 0.7 10^3/uL (0.2-0.9); Monocytes % 7.1 %; Neutrophils # 5.22 10^3/uL (1.8-7.7); Neutrophils % 51.1 %; Nucleated Red Blood Cells % 0 %; Platelet Count 439 10^3/cmm (130-400); Red Blood Count 4.75 10^6/uL (4.1-5.3); Red Cell Distribution Width 13.2 % (12.1-15.1); White Blood Count 10.2 10^3/uL (4.0-10.0)
[2022-05-15 20:45] LABS: Troponin(5th) Baseline 6 ng/L (0-10)
[2022-05-15 20:47] LABS: Alanine Aminotransferase 24 U/L (0-33); Albumin Level 4.1 g/dL (3.5-5.2); Alkaline Phosphatase 121 U/L (35-105); Anion Gap 14.6 (5-19); Aspartate Amino Transferase 13 U/L (0-32); Blood Urea Nitrogen 13 mg/dL (6-20); Carbon Dioxide 24 mmol/L (22-29); Chloride 101 mmol/L (98-107); Globulin 3.4 g/dL (1.3-4.6); Glucose 111 mg/dL (65-115); Osmolality Calculated 283 mOsm/kg (285-295); Potassium 3.6 mmol/L (3.5-5.1); Sodium 136 mmol/L (136-145); Total Bilirubin 0.5 mg/dL (0.15-1.2); Total Protein 7.5 g/dL (6.6-8.7)
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
[2022-05-15] MEDS: sodium chloride 0.9% 1,000 ML 999 ML IV (22:35)
[2022-05-15 23:17] LABS: Troponin 5 2HR Delta 0 ABS# (0-10)
[2022-05-16] MEDS: diazePAM 5 mg Tablet PO (00:47)
[2022-05-16] MEDS: sodium chloride 0.9% 1,000 ML 999 ML IV (00:49)
[2022-05-16 00:50] LABS: Urine Appearance Hazy (CLEAR); Urine Color Yellow (Yellow); pH Urine 6 (5-7)
[2022-05-16 00:51] LABS: Bilirubin Urine Neg (Negative); Blood Urine Neg (Negative); Glucose Urine UA Norm (Normal); Ketones Urine Negative (Negative); Leukocyte Esterase Urine 2+ (Negative); Nitrate Urine Negative (Negative); Protein Urine Neg (Negative); Urobilinogen Urine 4 mg/dL (Negative)
[2022-05-16 00:53] LABS: Add Urine Microscopic? YES
[2022-05-16 00:56] LABS: RBC Urine 0-4 /hpf (0-2); Squamous Epithelial Cell Urine 25-40 /hpf (0-5); WBC Urine 15-25 /hpf (0-5)
[2022-05-16 00:57] LABS: Bacteria Urine 1+ /hpf; Mucus Urine 1+ /hpf
[2022-05-16 01:02] LABS: Add Urine Culture? No
[2022-05-16] MEDS: cephALEXin 500 mg Capsule PO (01:52)
[2022-05-16 01:55] VITALS: BP 120/84; PULSE 100; RESP 16; O2SAT 99
== END 2022-05-16 01:57 | disposition home or self-care (01) ==
PROVIDERS: Emergency Medicine; Emergency Provider Nurse Practitioner; PCP Nurse Practitioner Family
DX: N39.0 Urinary tract infection, site not specified (principal); F15.10 Other stimulant abuse, uncomplicated
CPT/HCPCS: 36415; 71045; 72125; 73562; 80053; 81001; 84484; 85025; 93005; 96360; 96361; 99285; J7030

== ENCOUNTER 2022-08-16 11:54 | Emergency (ER) | payer MEDICAID, SELFPAY ==
[2022-08-16] VITALS (8 sets, daily range): BP systolic 96–119; BP diastolic 53–87; PULSE 68–86; RESP 14–18; TEMP 36.4; O2SAT 96–100
--- NOTE | 2022-08-16 12:17 | CTR_ITS ---
PROCEDURE INFORMATION: Exam: CT Abdomen And Pelvis With Contrast Exam date and time: 08/16/2022 12:51 PM Age: 42 years old Clinical indication: Abdominal pain; Epigastric; Prior surgery; Surgery type: Tubal; Additional info: Diffuse abdominal pain, n/v TECHNIQUE: Imaging protocol: Computed tomography of the abdomen and pelvis with contrast. Radiation optimization: All CT scans at this facility use at least one of these dose optimization techniques: automated exposure control; mA and/or kV adjustment per patient size (includes targeted exams where dose is matched to clinical indication); or iterative reconstruction. Contrast material: OMNI 350; Contrast volume: 100 ml; Contrast route: INTRAVENOUS (IV); REPORTING DATA: Count of CT and Cardiac NM exams in prior 12 months: This patient has received 3 known CTs and 0 known cardiac nuclear medicine studies in the 12 months prior to the current study. COMPARISON: 1. CT abdomen pelvis wo con [id number] 11/17/2021 10:[address] angio chest w abd pel w con 05/02/2022 11:30 PM RADIATION DOSE METRICS: Total DLP (mGy-cm): 509.31 FINDINGS: Lungs: Lung bases are clear. Liver: The right lobe of the liver is elongated consistent with George's configuration. The liver is not pathologically enlarged. There is no focal liver abnormality. Gallbladder and bile ducts: The gallbladder is dilated. The wall is thin. Small calcified stones are seen in the lumen. There is mild intrahepatic and extrahepatic biliary dilation. No calcified bile duct stone. Pancreas: The pancreas is unremarkable. Spleen: The spleen is unremarkable. Adrenal glands: The adrenal glands are unremarkable. Kidneys and ureters: There are simple cysts in both kidneys. 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 Beyond the pelvic inlet the ureters are not visible. There is no hydronephrosis or stones. Stomach and bowel: The stomach is decompressed, preventing meaningful evaluation of wall thickness. The small bowel is nondilated. Appendix: The appendix is normal. Intraperitoneal space: There is no free air or significant intraperitoneal free fluid. Vasculature: The aorta is unremarkable. There is no aneurysm. The portal, splenic and superior mesenteric veins are patent. Lymph nodes: There is no lymphadenopathy in the retroperitoneum, mesentery, pelvis or inguinal regions. Urinary bladder: The urinary bladder is unremarkable. Reproductive: The uterus is unremarkable. There is no adnexal mass or large cyst. Bones/joints: Bones are unremarkable. Soft tissues: The abdominal wall is intact. CT/CT abdomen pelvis w con* [id number] IMPRESSION: 1. Dilated gallbladder containing stones without wall thickening or pericholecystic edema. The findings are new since 05/02/2022 and are equivocal for acute cholecystitis. Consider ultrasound if there is clinical evidence of gallbladder disease. 2. Intrahepatic and central extrahepatic biliary dilation with a normal caliber distal common bile duct and no visible ductal stones. Nonspecific finding. Differential diagnosis includes ampullary stricture and radiolucent biliary stones. No ampullary mass is visible. MRCP may be useful for clarification. Findings are new since 11/17/2021 and similar to those seen on 05/02/2022. COMMENTS: Consistent with the [employer]'s Incidental Findings Committee white paper (J Am Derrek Radiol 2018): Any incidental renal lesion less than 1 cm or classified as too small to characterize, or any incidental cystic renal lesion characterized as simple-appearing, is likely benign. No follow-up imaging is recommended for these lesions per consensus recommendations based on imaging criteria.
--- NOTE | 2022-08-16 12:18 | ED_ITS ---
HPI - Abdominal Pain General: Chief Complaint: Abdominal Pain Stated Complaint: n/v, dizzy Time Seen by Provider: 08/16/22 11:56 Source: patient Mode of arrival: ambulatory Limitations: no limitations History of Present Illness: Patient is a 42-year-old female presents to ED today with complaint of abdominal pain. Patient states she has an intermittent chronic history of epigastric pain. She states she has pain almost every night but usually will be fairly asymptomatic throughout the day. She states today the pain became so intense she decided to seek medical evaluation. She states she has been diagnosed with ulcers although looking at previous documentation it looks like on her EGD performed on 07/23/2021 she was found to have reflux esophagitis, gastritis and duodenitis. Patient is supposed to be taking a PPI daily but states she often does not. She is complaining of nausea and vomiting currently. No changes to her bowel movements. No fevers. Reports very rare marijuana use. MD elicited complaint: abdominal pain Onset (ago): hour(s) Pain Consistency: constant Location: Diffuse and Epigastric Severity: severe Quality: stabbing and sharp Radiation: none Migration to: no migration Exacerbating factors: nothing Relieving factors: nothing Associated Symptoms: Reports nausea and vomiting; Denies change in bowel habits, chills, dysuria, fever(s) and hematemesis Related Data: Patient : No Review of Systems Const: Denies: fever(s), chills, body aches, fatigue or malaise Card: Denies: chest pain Resp: Denies: dyspnea GI: Reports: abdominal pain, nausea and vomiting; Denies: hematemesis or change in bowel habits : Denies: flank pain, difficulty voiding, dysuria, urinary frequency or urinary urgency Musc: Denies: neck pain, back pain, extremity pain or joint pain Skin/Breast: Denies: rash Neuro: Denies: headache(s) or dizziness PFS ED PFSH: Medical History (Updated 08/18/22 @ 21:12 by Jairo Gandara MD) Cholelithiasis GERD (gastroesophageal reflux disease) No pertinent past medical history Psychiatric care Surgical History History of 2011 History of esophagogastroduodenoscopy History of tubal ligation 2011 No history of previous surgery Family History Other Cancer Denies family history of Diabetes CAD (coronary artery disease) Dementia Chronic kidney disease (CKD) Anesthesia complication Bleeding disorder Lung disease Stroke Social History Smoking and tobacco status: never smoked Second hand smoke exposure: No Alcohol intake: former Caregiver/support person: Yes (spouse) Lives independently: Yes Household members: children Marital status: Legally service: No Current occupational status: unemployed Current gender identity: Female Special jaydon needs: No Physical Exam Const: COMMON NORMALS: average body habitus, patient oriented x3, no limitations, alert and well nourished GENERAL APPEARANCE: cooperative and in distress (curled in position complaining of abdominal pain) ORIE NTATION/CONSCIOUSNESS: Yes awake, Yes oriented to person, Yes oriented to place and Yes oriented to time HENMT: COMMON NORMALS: normocephalic and atraumatic HEAD & SCALP: normal to inspection, normocephalic and atraumatic Eye: COMMON NORMALS: no scleral icterus Neck/C-Spine: GENERAL: Yes normal visual inspection Chest: COMMONS NORMALS: normal inspection of the chest and normal palpation of entire chest wall Resp: COMMON NORMALS: normal respiratory effort and clear to auscultation bilaterally AUSCULTATION: clear to auscultation bilaterally Cardio: COMMON NORMALS: regular rate and regular rhythm RATE: regular rate RHYTHM: regular rhythm GI: COMMON NORMALS: Soft to palpation, No hepatosplenomegaly present and no masses INSPECTION: Yes normal to inspection AUSCULTATION: Yes normoactive bowel sounds PALPATION: Yes Soft to palpation, Yes Tenderness to palpation present (GI) (diffuse but mainly to epigastric), Yes Guarding due to palpation present (GI) (diffuse but mainly to epigastric ), No Rigid due to palpation and Yes No hepatosplenomegaly present OTHER: exam limited as patient refuses to lie on her back for exam-she is curled up in position : COMMON NORMALS: Yes no CVA tenderness BLADDER/KIDNEY EXAM: Yes no CVA tenderness Back/Pelvis: COMMON NORMALS: no CVA tenderness Extremity: COMMON NORMALS: normal to inspection GENERAL: Yes normal exam except as noted Neuro: ERICK COMA SCALE: document GCS findings Erick coma scale eye opening: Spontaneous Erick coma scale verbal response: Orientated Erick coma scale motor response: Obey commands [place] coma scale total score: 15 COMMON NORMALS: patient oriented x3, moves all extremities, no focal motor deficits and no sensory deficits noted SENSORIUM/ORIENTATION: Yes alert, Yes oriented to person, Yes oriented to place and Yes oriented to time Skin: COMMON NORMALS: no rashes or lesions noted GENERAL SKIN EXAM: no rashes or lesions noted Course Vital Signs: Vital signs: Vital Signs Temperature 97.5 F L 08/16/22 12:00 Pulse Rate 84 08/16/22 16:33 Respiratory Rate 16 08/16/22 16:00 Blood Pressure 113/78 08/16/22 16:33 Pulse Oximetry 96 08/16/22 16:33 Oxygen Delivery Me thod Room Air 08/16/22 16:33 MDM - Abdominal Pain Medical Decision Making Patient with diffuse abdominal pain more so to her epigastric region along with nausea and vomiting. She has a history of esophagitis/gastritis/duodenitis and I think this most likely is responsible for her symptoms today. She admittedly does not take her lansoprazole like she is supposed to as she has a difficulty swallowing pills. Patient's vital signs are stable. Her blood work overall is unremarkable. CT imaging did show a dilated gallbladder containing stones without wall thickening or pericholecystic edema. They did recommend gallbladder ultrasound. She has chronic intra and extrahepatic biliary dilatation (radiologist commented that this has present since 04/2022) and CT reported normal CBD. Patient's LFTs/tbili/lipase are unremarkable. Gallbladder ultrasound was ordered and shows cholelithiasis without any other evidence of cholecystitis. They stated the gallbladder distention that was seen on CT has decreased. They did mention mildly dilated CBD but again LFTs/tbili/lipase are all normal. At this point I will put patient on Protonix and Carafate and give her something for pain/nausea and will place referral with case management to get her set up with GI/general surgery for further evaluation. She was given strict return ED precautions if pain is not controllable at home or if symptoms worsen in any way. She verbalized understanding of current treatment plan. Lab Data 08/16/22 12:35 08/16/22 12:35 Labs/Radiology: Radiology Impressions Abdomen/Pelvis CT 08/16/22 12:17 IMPRESSION: 1. Dilated gallbladder containing stones without wall thickening or pericholecystic edema. The findings are new since 05/02/2022 and are equivocal for acute cholecystitis. Consider ultrasound if there is clinical evidence of gallbladder disease. 2. Intrahepatic and central extrahepatic biliary dilation with a normal caliber distal common bile duct and no visible ductal stones. Nonspecific finding. Differential diagnosis includes ampullary stricture and radiolucent biliary stones. No ampullary mass is visible. MRCP may be useful for clarification. Findings are new since 11/17/2021 and similar to those seen on 05/02/2022. COMMENTS: Consistent with the [employer]'s Incidental Findings Committee white paper (J Am Derrek Radiol 2018): Any incidental renal lesion less than 1 cm or classified as too small to characterize, or any incidental cystic renal lesion characterized as simple-appearing, is likely benign. No follow-up imaging is recommended for these lesions per consensus recommendations based on imaging criteria. Gallbladder Ultrasound 08/16/22 14:01 IMPRESSION: 1. Cholelithiasis without other evidence of cholecystitis. Gallbladder distention is decreased since the comparison CT. 2. Mildly dilated proximal common bile duct. Limited visualization of the bile ducts. No visible ductal stone. Laboratory Results WBC 16.0 10^3/uL (4.0-10.0) H 08/16/22 12:35 RBC 5.51 10^6/uL (4.1-5.3) H 08/16/22 12:35 Hgb 15.9 g/dL (11.5-15.3) H 08/16/22 12:35 Hct 48.4 % (37.0-47.0) H 08/16/22 12:35 MCV 87.8 fl (81-99) 08/16/22 12:35 MCH 28.9 pg (28.0-34.0) 08/16/22 12:35 MCHC 32.9 g/dL (30.0-36.0) 08/16/22 12:35 RDW 13.6 % (12.1-15.1) 08/16/22 12:35 Plt Count 321 10^3/cmm (130-400) 08/16/22 12:35 MPV 10.5 fL (7.4-10.4) H 08/16/22 12:35 Neut % (Auto) 78.5 % 08/16/22 12:35 Lymph % (Auto) 16.8 % 08/16/22 12:35 [place] % (Auto) 3.4 % 08/16/22 12:35 Eos % (Auto) 0.6 % 08/16/22 12:35 Baso % (Auto) 0.3 % 08/16/22 12:35 Neut # (Auto) 12.56 10^3/uL (1.8-7.7) H 08/16/22 12:35 Lymph # (Auto) 2.7 10^3/uL (0.8-4.8) 08/16/22 12:35 [place] # (Auto) 0.6 10^3/uL (0.2-0.9) 08/16/22 12:35 Eos # (Auto) 0.1 10^3/uL (0.0-0.8) 08/16/22 12:35 Baso # (Auto) 0.1 10^3/uL (0.0-0.1) 08/16/22 12:35 Nucleated RBC % (auto) 0 % 08/16/22 12:35 Nucleated RBCs # 0.0 /100WBC 08/16/22 12:35 Sodium 131 mmol/L (136-145) L 08/16/22 12:35 Potassium 4.0 mmol/L (3.5-5.1) 08/16/22 12:35 Chloride 99 mmol/L (98-107) 08/16/22 12:35 Carbon Dioxide 22 mmol/L (22-29) 08/16/22 12:35 Anion Gap 14.0 (5-19) 08/16/22 12:35 BUN 16 mg/dL (6-20) 08/16/22 12:35 Creatinine 0.5 mg/dL (0.5-0.9) 08/16/22 12:35 GFR Calculation 136.0 mL/min (90-130) H 08/16/22 12:35 Glucose 65 mg/dL (65-115) 08/16/22 12:35 Calculated Osmolality 271 mOsm/kg (285-295) L 08/16/22 12:35 Calcium 9.3 mg/dL (8.5-10.5) 08/16/22 12:35 Total Bilirubin 0.6 mg/dL (0.15-1.2) 08/16/22 12:35 AST 57 U/L (0-32) H 08/16/22 12:35 ALT 29 U/L (0-33) 08/16/22 12:35 Alkaline Phosphatase 96 U/L (35-105) 08/16/22 12:35 Total Protein 8.1 g/dL (6.6-8.7) 08/16/22 12:35 Albumin 4.5 g/dL (3.5-5.2) 08/16/22 12:35 Globulin 3.6 g/dL (1.3-4.6) 08/16/22 12:35 Lipase 31 U/L (13-60) 08/16/22 12:35 HCG, Qual Negative (Negative) 08/16/22 12:35 Urine Color Yellow (Yellow) 08/16/22 13:20 Urine Appearance Clear (CLEAR) 08/16/22 13:20 Urine pH 8 (5-7) H 08/16/22 13:20 Ur Specific [place] 1.015 (1.005-1.030) 08/16/22 13:20 Urine Protein Neg (Negative) 08/16/22 13:20 Urine Glucose (UA) Norm (Normal) 08/16/22 13:20 Urine Ketones Negative (Negative) 08/16/22 13:20 Urine Blood Neg (Negative) 08/16/22 13:20 Urine Nitrate Negative (Negative) 08/16/22 13:20 Urine Bilirubin Neg (Negative) 08/16/22 13:20 Prot Sulfosalicylic Acd Negative (Negative) 08/16/22 13:20 Urine Urobilinogen Norm mg/dL (Negative) 08/16/22 13:20 Ur Leukocyte Esterase Negative (Negative) 08/16/22 13:20 Discharge Plan Discharge Patient Disposition: Home Clinical Impression: Epigastric pain Condition: Stable Prescriptions: New sucralfate 100 mg/mL suspension 1 g PO BID 28 Days Qty: 560 0RF pantoprazole [Protonix] [address] for susp in packet 40 mg PO DAILY 28 Days Qty: 30 0RF promethazine 6.25 mg/5 mL syrup 25 mg PO TID PRN (Reason: nausea and vomiting) Qty: 473 0RF Discontinued naproxen 500 mg tablet 500 mg PO BID PRN (Reason: pain) 30 Days Qty: 60 0RF lansoprazole [Prevacid] 30 mg capsule,delayed release(DR/EC) 30 mg PO BID Qty: 60 3RF No Action sumatriptan succinate 100 mg tablet See Rx Instructions PO .COMPLEX Qty: 14 3RF Rx Instructions: take 1 tab at onset of headache; if no relief, may repeat 1 tab after at least 2 hrs; max = 2 tabs/24 hrs PO ondansetron 4 mg tablet,disintegrating 4 mg PO Q8H PRN (Reason: nausea and vomiting) Qty: 15 0RF oxycodone 5 mg tablet 5 mg PO Q4H PRN (Reason: pain) Qty: 10 0RF Discharge Orders: Discharge ED (Routine); Ordered 08/16/22 Ordered By: Ratna Vann Referrals: Yassine,GENE Sandhu [Primary Care Provider] - Patient Instructions: Abdominal Pain (ED), Opioid Safety, Pain Management Activity Restrictions/Additional Instructions: As we discussed I have placed the referral with case management to get you set up with GI/general surgery for further evaluation of your abdominal pain and possible repeat endoscopy. You have been placed on medications to help with your pain at home-so these are liquid/suspensions as you have noted you have trouble swallowing pills. We discussed you need to return to the emergency department for worsening or uncontrollable abdominal pain or vomiting, fevers, generally feeling worse or unwell, or any other concerns you may have. I hope you begin to feel better soon. Coding Level of Care Code ED Durable Medical Equipment Technician for [facility] [place]
[2022-08-16 12:50] LABS: Basophils # 0.1 10^3/uL (0.0-0.1); Basophils % 0.3 %; Eosinophils # 0.1 10^3/uL (0.0-0.8); Eosinophils % 0.6 %; Hematocrit 48.4 % (37.0-47.0); Hemoglobin 15.9 g/dL (11.5-15.3); Lymphocytes # 2.7 10^3/uL (0.8-4.8); Lymphocytes % 16.8 %; Mean Corpuscular HGB Conc 32.9 g/dL (30.0-36.0); Mean Corpuscular Hemoglobin 28.9 pg (28.0-34.0); Mean Corpuscular Volume 87.8 fl (81-99); Mean Platelet Volume 10.5 fL (7.4-10.4); Monocytes # 0.6 10^3/uL (0.2-0.9); Monocytes % 3.4 %; Neutrophils # 12.56 10^3/uL (1.8-7.7); Neutrophils % 78.5 %; Nucleated Red Blood Cells % 0 %; Platelet Count 321 10^3/cmm (130-400); Red Blood Count 5.51 10^6/uL (4.1-5.3); Red Cell Distribution Width 13.6 % (12.1-15.1)
[2022-08-16] MEDS: iohexol 350 mg/mL 500 mL Btl (per mL) IV (12:53)
[2022-08-16] MEDS: ondansetron 2 mg/ML SDV 2 mL 4 MG IVP (12:53)
[2022-08-16] MEDS: morphine 4 mg/mL SDV 1 mL IVP (12:53)
[2022-08-16 13:07] LABS: HCG, Serum Qual Negative (Negative)
[2022-08-16 13:16] LABS: Albumin Level 4.5 g/dL (3.5-5.2); Alkaline Phosphatase 96 U/L (35-105); Blood Urea Nitrogen 16 mg/dL (6-20); Calcium 9.3 mg/dL (8.5-10.5); Carbon Dioxide 22 mmol/L (22-29); Chloride 99 mmol/L (98-107); Creatinine Clr Calc Pharmacy 151.0259; Globulin 3.6 g/dL (1.3-4.6); Glucose 65 mg/dL (65-115); Lipase 31 U/L (13-60); Osmolality Calculated 271 mOsm/kg (285-295); Sodium 131 mmol/L (136-145); Total Bilirubin 0.6 mg/dL (0.15-1.2); Total Protein 8.1 g/dL (6.6-8.7)
[2022-08-16 13:19] LABS: Aspartate Amino Transferase 57 U/L (0-32)
[2022-08-16 13:20] LABS: Alanine Aminotransferase 29 U/L (0-33)
[2022-08-16] MEDS: lidocaine 2% viscous 15 ML, aluminum-mag hydrox-simethicon 30 ML, sucralfate oral liq 1 GM PO (13:24)
[2022-08-16 13:31] LABS: Add Urine Microscopic? NO
[2022-08-16 13:32] LABS: Charge for UA Resulting for Rev
[2022-08-16 13:39] LABS: Bilirubin Urine Neg (Negative); Blood Urine Neg (Negative); Glucose Urine UA Norm (Normal); Ketones Urine Negative (Negative); Leukocyte Esterase Urine Negative (Negative); Nitrate Urine Negative (Negative); Protein Urine Neg (Negative); Specific Gravity, Urine 1.015 (1.005-1.030); Sulfosalicylic Acid Urine Negative (Negative); Urine Appearance Clear (CLEAR); Urine Color Yellow (Yellow); Urobilinogen Urine Norm (Negative); pH Urine 8 (5-7)
[2022-08-16] MEDS: HYDROmorphone 1 mg/mL INJ 1 mL 0.5 MG IVP (13:52)
--- NOTE | 2022-08-16 14:01 | USR_ITS ---
PROCEDURE INFORMATION: Exam: US Abdomen, Limited; Right Upper Quadrant Exam date and time: 08/16/2022 2:23 PM Age: 42 years old Clinical indication: Abdominal pain; Acute; Additional info: Abdominal pain, n/v; Abnormal CT results TECHNIQUE: Imaging protocol: Real time ultrasound of the abdomen with image documentation. Limited exam focused on the right upper quadrant. COMPARISON: CT abdomen pelvis w con* [id number] 08/16/2022 12:51 PM FINDINGS: Liver: The liver is elongated. There is no focal abnormality. Gallbladder: The gallbladder wall is thin. Shadowing small gallstones are seen in the fundus. Gallbladder distention is decreased since the comparison CT today. Information regarding sonographic Urias sign was not provided by the dining room maid. Biliary ducts: The proximal common bile duct measures 7 mm diameter. The distal common bile duct is not visible. No ductal stone is seen. Pancreas: The visible portion of the pancreas is unremarkable. Right kidney: The right kidney is unremarkable. Aorta: The upper abdominal aorta is unremarkable. Inferior vena cava: The IVC is unremarkable. US/US gall bladder [id number] IMPRESSION: 1. Cholelithiasis without other evidence of cholecystitis. Gallbladder distention is decreased since the comparison CT. 2. Mildly dilated proximal common bile duct. Limited visualization of the bile ducts. No visible ductal stone.
[2022-08-16] MEDS: HYDROmorphone 1 mg/mL INJ 1 mL IVP (16:02)
[2022-08-16] MEDS: promethazine 25 mg/mL SDV 1 mL 50 MG IM (16:07)
[2022-08-16] MEDS: pantoprazole 40 mg SDV IVP (16:48)
--- NOTE | 2022-08-17 13:58 | DCPLANNER ---
Addendum entered by Moriah Dawkins 08/19/22 09:51: bdc manager received the following message from the general surgery clinic regarding follow up appointment: Due to patient having [facility], please refer elsewhere. patient case coordinator called and spoke with patient and explained this to the patient. bdc manager asked patient if she wanted her information sent to [facility] or [facility]. Patient stated that she wanted her information sent to [facility]. bdc manager faxed patients information on 08.18.22 to [facility]. bdc manager called on 08.19.22 to confirm that [facility] had received patients information - patient case coordinator was told that clinic did receive patients information. Original Note: bdc manager had message to schedule a follow up appointment for patient with general surgery. bdc manager sent patients information to the front office staff at general surgery. Patients information will be printed and reviewed. Clinic will call patient with appointment information.
== END 2022-08-16 16:59 | disposition home or self-care (01) ==
PROVIDERS: Emergency Provider Physician Assistant; PCP Nurse Practitioner Family
DX: R10.13 Epigastric pain (principal); K80.20 Calculus of gallbladder without cholecystitis without obstruction
CPT/HCPCS: 74177; 76705; 80053; 81003; 83690; 84703; 85025; 96372; 96374; 96376; 99285; C9113; J1170; J2270; J2405; J2550; Q9967

== ENCOUNTER 2022-08-18 13:02 | Emergency (ER) | payer MEDICAID, SELFPAY ==
[2022-08-18] VITALS (55 sets, daily range): BP systolic 116–129; BP diastolic 77–84; PULSE 74–84; RESP 17–19; TEMP 37; O2SAT 72–100
[2022-08-18 14:03] LABS: Basophils % 0.3 %; Eosinophils # 0.1 10^3/uL (0.0-0.8); Hematocrit 43.1 % (37.0-47.0); Hemoglobin 14.2 g/dL (11.5-15.3); Lymphocytes % 24.9 %; Mean Corpuscular HGB Conc 32.9 g/dL (30.0-36.0); Mean Corpuscular Hemoglobin 29.4 pg (28.0-34.0); Mean Corpuscular Volume 89.2 fl (81-99); Mean Platelet Volume 10.1 fL (7.4-10.4); Monocytes # 0.5 10^3/uL (0.2-0.9); Monocytes % 5.8 %; Neutrophils # 5.37 10^3/uL (1.8-7.7); Neutrophils % 67.4 %; Nucleated Red Blood Cells % 0 %; Platelet Count 276 10^3/cmm (130-400); Red Blood Count 4.83 10^6/uL (4.1-5.3); Red Cell Distribution Width 13.9 % (12.1-15.1)
--- NOTE | 2022-08-18 14:04 | ED_ITS ---
Documented by User: Joreg Ryan DO 08/20/22 06:04 HPI - Abdominal Pain General: Chief Complaint: Abdominal Pain Stated Complaint: ABDOMINAL PAIN/ N/V Time Seen by Provider: 08/18/22 13:13 Source: patient Mode of arrival: ambulatory History of Present Illness: 42-year-old female presents to the emergency room complaining epigastric and right upper quadrant abdominal pain she has had it for the last approximately week. She was here 4 days ago and evaluated and found to have cholelithiasis. There is no evidence of cholecystitis at the time that she was seen the report reads that there was mild proximal common bile duct but no visualized ductal stone. At that time her total bilirubin was 0.6 her AST was very slightly elevated at 57 MD elicited complaint: abdominal pain Pertinent past history: none Onset (ago): minute(s) Pain Consistency: constant Location: RUQ Severity: moderate Quality: cramping Migration to: no migration Exacerbating factors: eating Relieving factors: nothing Associated Symptoms: Denies anorexia, belching, bloating, change in bowel habits, change in stool character, chills, coffee ground emesis, constipation, GI cramping, diarrhea, dyspepsia, dysuria, excessive flatus, fever(s), heartburn, hematochezia, hematuria, hematemesis, fecal incontinence, loose stools, melena, nausea, poor appetite, syncope and vomiting Review of Systems Const: Denies: fever(s), chills, fatigue or malaise ENMT: Denies: throat pain, ear or mastoid pain, nasal discharge or nasal congestion Card: Denies: syncope Resp: Denies: dyspnea, productive cough or non-productive cough GI: Denies: nausea, vomiting, hematemesis, coffee ground emesis, heartburn, diarrhea, constipation, bloating, GI cramping, belching, excessive flatus, fecal incontinence, change in bowel habits, change in stool character, hematochezia or melena : Denies: flank pain, dysuria, urinary frequency, urinary urgency or hematuria Skin/Breast: Denies: rash or pruritus PFS ED PFSH: Medical History Cholelithiasis GERD (gastroesophageal reflux disease) No pertinent past medical history Psychiatric care Surgical History History of 2011 History of esophagogastroduodenoscopy History of tubal ligation 2011 No history of previous surgery Family History Other Cancer Denies family history of Diabetes CAD (coronary artery disease) Dementia Chronic kidney disease (CKD) Anesthesia complication Bleeding disorder Lung disease Stroke Social History Smoking and tobacco status: never smoked Second hand smoke exposure: No Alcohol intake: former Caregiver/support person: Yes (spouse) Lives independently: Yes Household members: children Marital status: Legally service: No Current occupational status: unemployed Current gender identity: Female Special jaydon needs: No Physical Exam Const: GENERAL APPEARANCE: cooperative and comfortable ORIENTATION/CONSCIOUSNESS: Yes awake, Yes oriented to person, Yes oriented to place and Yes oriented to time HENMT: COMMON NORMALS: normocephalic, atraumatic and hearing grossly normal bilaterally HEAD & SCALP: normocephalic and atraumatic Resp: COMMON NORMALS: normal respiratory effort, No retractions, No use of accessory muscles and clear to auscultation bilaterally AUSCULTATION: clear to auscultation bilaterally Cardio: COMMON NORMALS: regular rate, regular rhythm and No murmurs present (Cardio) RATE: regular rate RHYTHM: regular rhythm GI: COMMON NORMALS: No hepatosplenomegaly present AUSCULTATION: Yes normoactive bowel sounds PALPATION: Yes Tenderness to palpation present (GI) Details: RUQ, No Guarding due to palpation present (GI) and Yes No hepatosplenomegaly present : COMMON NORMALS: Yes no CVA tenderness BLADDER/KIDNEY EXAM: Yes no CVA tenderness Back/Pelvis: COMMON NORMALS: no CVA tenderness Extremity: COMMON NORMALS: normal to inspection, capillary refill normal, no clubbing, cyanosis or edema, no calf tenderness and no pedal edema Neuro: SENSORIUM/ORIENTATION: Yes oriented to person, Yes oriented to place and Yes oriented to time Skin: COMMON NORMALS: no rashes or lesions noted GENERAL SKIN EXAM: no rashes or lesions noted Course Vital Signs: Vital signs: Vital Signs Temperature 98.6 F 08/18/22 13:10 Pulse Rate 74 08/18/22 21:39 Respiratory Rate 17 08/18/22 21:39 Blood Pressure 129/77 08/18/22 21:39 Pulse Oximetry 95 08/18/22 21:39 Oxygen Delivery Me thod Room Air 08/18/22 14:54 MDM - Abdominal Pain Medical Decision Making Patient has cholelithiasis on ultrasound repeat ultrasound today does not show any thickening of the gallbladder wall or dilation of the duct however liver functions are elevated with an elevated T. bili. Discussed Dr. Garcia he still suspects a potential common bile duct stone. Her white count is normal. He recommends an MRCP if that is positive for common bile duct stone referral for ERCP if it is negative he recommends discharge home and short-term follow-up in the office for cholecystectomy. Patient initially sent to the MRCP had a panic attack and declined the test she returned here were giving her Ativan we will reattempt the MRCP. Care signed out to Dr. Gandara at change of shift. See final notes for diagnosis and disposition. Medical Records I reviewed the patient's medical records. Lab Data I reviewed the patient's lab results. 08/18/22 13:49 08/18/22 13:49 Labs/Radiology: Radiology Impressions Gallbladder Ultrasound 08/18/22 14:48 IMPRESSION: 1. Known cholelithiasis. Stones and sludge near the gallbladder neck. Gallbladder wall is top normal size. No pericholecystic fluid identified. No gallbladder hydrops. Recommend surgical evaluation. Patient has had multiple episodes of RIGHT upper quadrant pain with imaging recently. 2. Common bile duct is not dilated. Cholangiopancreatography MRI 08/18/22 19:12 IMPRESSION: Cholelithiasis without findings to suggest acute cholecystitis or choledocholithiasis. COMMENTS: Consistent with the [employer]'s Incidental Findings Committee white paper (J Am Derrek Radiol 2018): Any incidental renal lesion less than 1 cm or classified as too small to characterize, or any incidental cystic renal lesion characterized as simple-appearing, is likely benign. No follow-up imaging is recommended for these lesions per consensus recommendations based on imaging criteria. Laboratory Results WBC 8.0 10^3/uL (4.0-10.0) 08/18/22 13:49 RBC 4.83 10^6/uL (4.1-5.3) 08/18/22 13:49 Hgb 14.2 g/dL (11.5-15.3) 08/18/22 13:49 Hct 43.1 % (37.0-47.0) 08/18/22 13:49 MCV 89.2 fl (81-99) 08/18/22 13:49 MCH 29.4 pg (28.0-34.0) 08/18/22 13:49 MCHC 32.9 g/dL (30.0-36.0) 08/18/22 13:49 RDW 13.9 % (12.1-15.1) 08/18/22 13:49 Plt Count 276 10^3/cmm (130-400) 08/18/22 13:49 MPV 10.1 fL (7.4-10.4) 08/18/22 13:49 Neut % (Auto) 67.4 % 08/18/22 13:49 Lymph % (Auto) 24.9 % 08/18/22 13:49 [place] % (Auto) 5.8 % 08/18/22 13:49 Eos % (Auto) 1.0 % 08/18/22 13:49 Baso % (Auto) 0.3 % 08/18/22 13:49 Neut # (Auto) 5.37 10^3/uL (1.8-7.7) 08/18/22 13:49 Lymph # (Auto) 2.0 10^3/uL (0.8-4.8) 08/18/22 13:49 [place] # (Auto) 0.5 10^3/uL (0.2-0.9) 08/18/22 13:49 Eos # (Auto) 0.1 10^3/uL (0.0-0.8) 08/18/22 13:49 Baso # (Auto) 0.0 10^3/uL (0.0-0.1) 08/18/22 13:49 Nucleated RBC % (auto) 0 % 08/18/22 13:49 Nucleated RBCs # 0.0 /100WBC 08/18/22 13:49 Sodium 139 mmol/L (136-145) 08/18/22 13:49 Potassium 3.9 mmol/L (3.5-5.1) 08/18/22 13:49 Chloride 104 mmol/L (98-107) 08/18/22 13:49 Carbon Dioxide 25 mmol/L (22-29) 08/18/22 13:49 Anion Gap 13.9 (5-19) 08/18/22 13:49 BUN 11 mg/dL (6-20) 08/18/22 13:49 Creatinine 0.5 mg/dL (0.5-0.9) 08/18/22 13:49 GFR Calculation 136.0 mL/min (90-130) H 08/18/22 13:49 Glucose 96 mg/dL (65-115) 08/18/22 13:49 Calculated Osmolality 287 mOsm/kg (285-295) 08/18/22 13:49 Calcium 8.4 mg/dL (8.5-10.5) L 08/18/22 13:49 Total Bilirubin 1.5 mg/dL (0.15-1.2) H 08/18/22 13:49 AST 447 U/L (0-32) H 08/18/22 13:49 ALT 560 U/L (0-33) H 08/18/22 13:49 Alkaline Phosphatase 234 U/L (35-105) H 08/18/22 13:49 Total Protein 7.0 g/dL (6.6-8.7) 08/18/22 13:49 Albumin 4.0 g/dL (3.5-5.2) 08/18/22 13:49 Globulin 3.0 g/dL (1.3-4.6) 08/18/22 13:49 Lipase 26 U/L (13-60) 08/18/22 13:49 Urine Color Yellow (Yellow) 08/18/22 14:30 Urine Appearance Sl hazy (CLEAR) A 08/18/22 14:30 Urine pH 5 (5-7) 08/18/22 14:30 Ur Specific [place] 1.025 (1.005-1.030) 08/18/22 14:30 Urine Protein Neg (Negative) 08/18/22 14:30 Urine Glucose (UA) Norm (Normal) 08/18/22 14:30 Urine Ketones Negative (Negative) 08/18/22 14:30 Urine Blood Neg (Negative) 08/18/22 14:30 Urine Nitrate Negative (Negative) 08/18/22 14:30 Urine Bilirubin Neg (Negative) 08/18/22 14:30 Urine Urobilinogen 4 mg/dL (Negative) H 08/18/22 14:30 Ur Leukocyte Esterase Negative (Negative) 08/18/22 14:30 Urine RBC 0-4 /hpf (0-2) H 08/18/22 14:30 Urine WBC 0-4 /hpf (0-5) H 08/18/22 14:30 Ur Squamous Epith Cells 0-4 /hpf (0-5) H 08/18/22 14:30 Amorphous Sediment Not Reportable 08/18/22 14:30 Urine Bacteria Trace /hpf (NONE) 08/18/22 14:30 Urine Mucus 2+ /hpf 08/18/22 14:30 Hepatitis A IgM Ab Non-reactive (Nonreactive) 08/18/22 13:55 Hep Bs Antigen Non-reactive (Nonreactive) 08/18/22 13:55 Hep B Core IgM Ab Non-reactive (Nonreactive) 08/18/22 13:55 Hepatitis C Antibody Non-reactive (Nonreactive) 08/18/22 13:55 Discharge Plan Discharge Patient Disposition: Home Clinical Impression: Biliary colic symptom, Elevated bilirubin, Transaminitis Condition: Stable Prescriptions: New ondansetron 4 mg tablet,disintegrating 4 mg PO Q8H PRN (Reason: nausea and vomiting) Qty: 15 0RF oxycodone 5 mg tablet 5 mg PO Q4H PRN (Reason: pain) Qty: 10 0RF Discontinued hydrocodone-acetaminophen 5-325 mg tablet 1 tab PO Q6H PRN (Reason: pain) Qty: 14 0RF No Action sumatriptan succinate 100 mg tablet See Rx Instructions PO .COMPLEX Qty: 14 3RF Rx Instructions: take 1 tab at onset of headache; if no relief, may repeat 1 tab after at least 2 hrs; max = 2 tabs/24 hrs PO sucralfate 100 mg/mL suspension 1 g PO BID 28 Days Qty: 560 0RF pantoprazole [Protonix] [address] for susp in packet 40 mg PO DAILY 28 Days Qty: 30 0RF promethazine 6.25 mg/5 mL syrup 25 mg PO TID PRN (Reason: nausea and vomiting) Qty: 473 0RF Discharge Orders: Discharge ED (Routine); Ordered 08/18/22 Ordered By: Jairo Gandara Referrals: Metzger,MELY SandhuN [Primary Care Provider] - Discharge Diet: Advance as tolerated and Clear Liquid Discharge Activity: Increase activity as tolerated Patient Instructions: Biliary Colic (ED), Abdominal Pain (ED), Opioid Safety Activity Restrictions/Additional Instructions: Thank you for visiting the emergency department. You were seen and evaluated for abdominal pain. The exact cause of your symptoms is unclear. You do have elevation of your bilirubin and liver enzymes. This may be due to biliary colic. As you do have gallstones. Please call [phone] in the morning when clinic opens for follow-up with Dr. Garcia. Return to the emergency department for uncontrolled symptoms or anything else that you are concerned about and feel needs emergency department evaluation. Please avoid acetaminophen/Tylenol. Stand Alone Forms: Work/School Release Sign Out Sign Out Data: Patient Sign Out occurred on 08/18/22 at 18:43. Patient's care was discussed, an d care was transferred from to Jairo Gandara MD. Coding Level of Care Code ED Adzing And Boring Machine Feeder for Chg Fwd Documented by User: Jairo Gandara MD 08/18/22 21:45 HPI - Abdominal Pain General: Chief Complaint: Abdominal Pain Stated Complaint: ABDOMINAL PAIN/ N/V Time Seen by Provider: 08/18/22 13:13 [facility] ED PFSH: Medical History Cholelithiasis GERD (gastroesophageal reflux disease) No pertinent past medical history Psychiatric care Surgical History History of 2011 History of esophagogastroduodenoscopy History of tubal ligation 2011 No history of previous surgery Family History Other Cancer Denies family history of Diabetes CAD (coronary artery disease) Dementia Chronic kidney disease (CKD) Anesthesia complication Bleeding disorder Lung disease Stroke Social History Smoking and tobacco status: never smoked Second hand smoke exposure: No Alcohol intake: former Caregiver/support person: Yes (spouse) Lives independently: Yes Household members: children Marital status: Legally service: No Current occupational status: unemployed Current gender identity: Female Special jaydon needs: No Course Vital Signs: Vital signs: Vital Signs Temperature 98.6 F 08/18/22 13:10 Pulse Rate 74 08/18/22 21:39 Respiratory Rate 17 08/18/22 21:39 Blood Pressure 129/77 08/18/22 21:39 Pulse Oximetry 95 08/18/22 21:39 Oxygen Delivery Me thod Room Air 08/18/22 14:54 MDM - Abdominal Pain Medical Decision Making Patient has cholelithiasis on ultrasound repeat ultrasound today does not show any thickening of the gallbladder wall or dilation of the duct however liver functions are elevated with an elevated T. bili. Discussed Dr. Garcia he still suspects a potential common bile duct stone. Her white count is normal. He recommends an MRCP if that is positive for common bile duct stone referral for ERCP if it is negative he recommends discharge home and short-term follow-up in the office for cholecystectomy. Patient initially sent to the MRCP had a panic attack and declined the test she returned here were giving her Ativan we will reattempt the MRCP. Care signed out to Dr. Gandara at change of shift. See final notes for diagnosis and disposition. Patient care handoff received from Dr. Ryan pending completion of MRCP. MRCP demonstrates no evidence of choledocholithiasis or acute cholecystitis. No other clear abnormality to explain laboratory study changes. Patient feels improved on reassessment. Per prior discussion and plan at time of handoff she understands need to call Dr. Garcia's office in the morning for follow-up. The results of ED evaluation were discussed with the patient including prescriptions and/or symptomatic cares (if applicable) including appropriate and responsible use, followup plan, and return precautions. The patient verbalized understanding and felt safe for discharge. Jairo Gandara MD Emergency Medicine Lab Data 08/18/22 13:49 08/18/22 13:49 Labs/Radiology: Radiology Impressions Gallbladder Ultrasound 08/18/22 14:48 IMPRESSION: 1. Known cholelithiasis. Stones and sludge near the gallbladder neck. Gallbladder wall is top normal size. No pericholecystic fluid identified. No gallbladder hydrops. Recommend surgical evaluation. Patient has had multiple episodes of RIGHT upper quadrant pain with imaging recently. 2. Common bile duct is not dilated. Cholangiopancreatography MRI 08/18/22 19:12 IMPRESSION: Cholelithiasis without findings to suggest acute cholecystitis or choledocholithiasis. COMMENTS: Consistent with the [employer]'s Incidental Findings Committee white paper (J Am Derrek Radiol 2018): Any incidental renal lesion less than 1 cm or classified as too small to characterize, or any incidental cystic renal lesion characterized as simple-appearing, is likely benign. No follow-up imaging is recommended for these lesions per consensus recommendations based on imaging criteria. Laboratory Results WBC 8.0 10^3/uL (4.0-10.0) 08/18/22 13:49 RBC 4.83 10^6/uL (4.1-5.3) 08/18/22 13:49 Hgb 14.2 g/dL (11.5-15.3) 08/18/22 13:49 Hct 43.1 % (37.0-47.0) 08/18/22 13:49 MCV 89.2 fl (81-99) 08/18/22 13:49 MCH 29.4 pg (28.0-34.0) 08/18/22 13:49 MCHC 32.9 g/dL (30.0-36.0) 08/18/22 13:49 RDW 13.9 % (12.1-15.1) 08/18/22 13:49 Plt Count 276 10^3/cmm (130-400) 08/18/22 13:49 MPV 10.1 fL (7.4-10.4) 08/18/22 13:49 Neut % (Auto) 67.4 % 08/18/22 13:49 Lymph % (Auto) 24.9 % 08/18/22 13:49 [place] % (Auto) 5.8 % 08/18/22 13:49 Eos % (Auto) 1.0 % 08/18/22 13:49 Baso % (Auto) 0.3 % 08/18/22 13:49 Neut # (Auto) 5.37 10^3/uL (1.8-7.7) 08/18/22 13:49 Lymph # (Auto) 2.0 10^3/uL (0.8-4.8) 08/18/22 13:49 [place] # (Auto) 0.5 10^3/uL (0.2-0.9) 08/18/22 13:49 Eos # (Auto) 0.1 10^3/uL (0.0-0.8) 08/18/22 13:49 Baso # (Auto) 0.0 10^3/uL (0.0-0.1) 08/18/22 13:49 Nucleated RBC % (auto) 0 % 08/18/22 13:49 Nucleated RBCs # 0.0 /100WBC 08/18/22 13:49 Sodium 139 mmol/L (136-145) 08/18/22 13:49 Potassium 3.9 mmol/L (3.5-5.1) 08/18/22 13:49 Chloride 104 mmol/L (98-107) 08/18/22 13:49 Carbon Dioxide 25 mmol/L (22-29) 08/18/22 13:49 Anion Gap 13.9 (5-19) 08/18/22 13:49 BUN 11 mg/dL (6-20) 08/18/22 13:49 Creatinine 0.5 mg/dL (0.5-0.9) 08/18/22 13:49 GFR Calculation 136.0 mL/min (90-130) H 08/18/22 13:49 Glucose 96 mg/dL (65-115) 08/18/22 13:49 Calculated Osmolality 287 mOsm/kg (285-295) 08/18/22 13:49 Calcium 8.4 mg/dL (8.5-10.5) L 08/18/22 13:49 Total Bilirubin 1.5 mg/dL (0.15-1.2) H 08/18/22 13:49 AST 447 U/L (0-32) H 08/18/22 13:49 ALT 560 U/L (0-33) H 08/18/22 13:49 Alkaline Phosphatase 234 U/L (35-105) H 08/18/22 13:49 Total Protein 7.0 g/dL (6.6-8.7) 08/18/22 13:49 Albumin 4.0 g/dL (3.5-5.2) 08/18/22 13:49 Globulin 3.0 g/dL (1.3-4.6) 08/18/22 13:49 Lipase 26 U/L (13-60) 08/18/22 13:49 Urine Color Yellow (Yellow) 08/18/22 14:30 Urine Appearance Sl hazy (CLEAR) A 08/18/22 14:30 Urine pH 5 (5-7) 08/18/22 14:30 Ur Specific [place] 1.025 (1.005-1.030) 08/18/22 14:30 Urine Protein Neg (Negative) 08/18/22 14:30 Urine Glucose (UA) Norm (Normal) 08/18/22 14:30 Urine Ketones Negative (Negative) 08/18/22 14:30 Urine Blood Neg (Negative) 08/18/22 14:30 Urine Nitrate Negative (Negative) 08/18/22 14:30 Urine Bilirubin Neg (Negative) 08/18/22 14:30 Urine Urobilinogen 4 mg/dL (Negative) H 08/18/22 14:30 Ur Leukocyte Esterase Negative (Negative) 08/18/22 14:30 Urine RBC 0-4 /hpf (0-2) H 08/18/22 14:30 Urine WBC 0-4 /hpf (0-5) H 08/18/22 14:30 Ur Squamous Epith Cells 0-4 /hpf (0-5) H 08/18/22 14:30 Amorphous Sediment Not Reportable 08/18/22 14:30 Urine Bacteria Trace /hpf (NONE) 08/18/22 14:30 Urine Mucus 2+ /hpf 08/18/22 14:30 Hepatitis A IgM Ab Non-reactive (Nonreactive) 08/18/22 13:55 Hep Bs Antigen Non-reactive (Nonreactive) 08/18/22 13:55 Hep B Core IgM Ab Non-reactive (Nonreactive) 08/18/22 13:55 Hepatitis C Antibody Non-reactive (Nonreactive) 08/18/22 13:55 Discharge Plan Discharge Patient Disposition: Home Clinical Impression: Biliary colic symptom, Elevated bilirubin, Transaminitis Condition: Stable Prescriptions: New ondansetron 4 mg tablet,disintegrating 4 mg PO Q8H PRN (Reason: nausea and vomiting) Qty: 15 0RF oxycodone 5 mg tablet 5 mg PO Q4H PRN (Reason: pain) Qty: 10 0RF Discontinued hydrocodone-acetaminophen 5-325 mg tablet 1 tab PO Q6H PRN (Reason: pain) Qty: 14 0RF No Action sumatriptan succinate 100 mg tablet See Rx Instructions PO .COMPLEX Qty: 14 3RF Rx Instructions: take 1 tab at onset of headache; if no relief, may repeat 1 tab after at least 2 hrs; max = 2 tabs/24 hrs PO sucralfate 100 mg/mL suspension 1 g PO BID 28 Days Qty: 560 0RF pantoprazole [Protonix] [address] for susp in packet 40 mg PO DAILY 28 Days Qty: 30 0RF promethazine 6.25 mg/5 mL syrup 25 mg PO TID PRN (Reason: nausea and vomiting) Qty: 473 0RF Discharge Orders: Discharge ED (Routine); Ordered 08/18/22 Ordered By: Jairo Gandara Referrals: Yassine,GENE Sandhu [Primary Care Provider] - Discharge Diet: Advance as tolerated and Clear Liquid Discharge Activity: Increase activity as tolerated Patient Instructions: Biliary Colic (ED), Abdominal Pain (ED), Opioid Safety Activity Restrictions/Additional Instructions: Thank you for visiting the emergency department. You were seen and evaluated for abdominal pain. The exact cause of your symptoms is unclear. You do have elevation of your bilirubin and liver enzymes. This may be due to biliary colic. As you do have gallstones. Please call [phone] in the morning when clinic opens for follow-up with Dr. Garcia. Return to the emergency department for uncontrolled symptoms or anything else that you are concerned about and feel needs emergency department evaluation. Please avoid acetaminophen/Tylenol. Stand Alone Forms: Work/School Release Sign Out Sign Out Data: Patient Sign Out occurred on 08/18/22 at 18:43. Patient's care was discussed, and care was transferred from to Jairo Gandara MD. Coding Level of Care Code ED Adzing And Boring Machine Feeder for Chichi [place]
[2022-08-18 14:28] LABS: Alanine Aminotransferase 560 U/L (0-33); Alkaline Phosphatase 234 U/L (35-105); Aspartate Amino Transferase 447 U/L (0-32); Blood Urea Nitrogen 11 mg/dL (6-20); Calcium 8.4 mg/dL (8.5-10.5); Carbon Dioxide 25 mmol/L (22-29); Chloride 104 mmol/L (98-107); Glucose 96 mg/dL (65-115); Lipase 26 U/L (13-60); Osmolality Calculated 287 mOsm/kg (285-295); Sodium 139 mmol/L (136-145); Total Bilirubin 1.5 mg/dL (0.15-1.2)
[2022-08-18 14:35] LABS: Anion Gap 13.9 (5-19); Potassium 3.9 mmol/L (3.5-5.1)
--- NOTE | 2022-08-18 14:48 | US_ITS ---
WS: [id number] RIGHT UPPER QUADRANT ULTRASOUND HISTORY: abnormal LFTS, elevated t bili, suspect ductal stone COMPARISON: 08/16/2022 Liver: 17.5 cm in length. Mildly enlarged liver. Slight coarse echotexture. No mass identified. Portal Vein: Normal hepatopetal flow with monophasic waveform. Gallbladder: Nondistended gallbladder. Small slightly shadowing stones are noted near the end of the gallbladder. The gallbladder is not dilated. There may also be some sludge within the gallbladder. Ga llbladder wall is top normal size at 0.29 mm. CBD: 0.4 cm Pancreas: Poorly visualized. Right kidney: 11.5 cm in length. Normal size and echogenicity. No hydronephrosis or mass. Aorta and IVC: Unremarkable abdominal aorta and IVC. No ascites. US/US gall bladder [id number] IMPRESSION: 1. Known cholelithiasis. Stones and sludge near the gallbladder neck. Gallblad bridger wall is top normal size. No pericholecystic fluid identified. No gallbladde r hydrops. Recommend surgical evaluation. Patient has had multiple episodes of RIGHT upper quadrant pain with imaging recently. 2. Common bile duct is not dilated.
[2022-08-18 15:14] LABS: Add Urine Microscopic? YES; Bilirubin Urine Neg (Negative); Blood Urine Neg (Negative); Glucose Urine UA Norm (Normal); Ketones Urine Negative (Negative); Leukocyte Esterase Urine Negative (Negative); Nitrate Urine Negative (Negative); Protein Urine Neg (Negative); Specific Gravity, Urine 1.025 (1.005-1.030); Urine Appearance SL Hazy (CLEAR); Urine Color Yellow (Yellow); Urobilinogen Urine 4 mg/dL (Negative); pH Urine 5 (5-7)
[2022-08-18 15:15] LABS: Bacteria Urine TRACE /hpf; Mucus Urine 2+ /hpf; RBC Urine 0-4 /hpf (0-2); Squamous Epithelial Cell Urine 0-4 /hpf (0-5); WBC Urine 0-4 /hpf (0-5)
--- NOTE | 2022-08-18 16:04 | PC.PHAR ---
pt sts she has all medications listed but does not take them
[2022-08-18] MEDS: morphine 4 mg/mL SDV 1 mL IVP ×3 (16:10→21:34)
[2022-08-18] MEDS: sodium chloride 0.9% 1,000 ML 999 ML IV ×2 (16:11→17:40)
[2022-08-18] MEDS: promethazine 25 mg/mL SDV 1 mL IM (16:11)
[2022-08-18] MEDS: ondansetron 2 mg/ML SDV 2 mL 4 MG IVP ×2 (17:39→21:34)
[2022-08-18] MEDS: LORazepam 2 mg/mL INJ 1 mL IVP (17:40)
--- NOTE | 2022-08-18 19:12 | MRR_ITS ---
PROCEDURE INFORMATION: Exam: MR Abdomen Without Contrast Exam date and time: 08/18/2022 7:51 PM Age: 42 years old Clinical indication: Abdominal pain; Additional info: Eval choledocolithiasis TECHNIQUE: Imaging protocol: Magnetic resonance imaging of the abdomen without contrast. COMPARISON: CT abdomen pelvis w con* [id number] 08/16/2022 12:51 PM FINDINGS: Liver: George's configuration of the liver. No mass. Gallbladder and bile ducts: Punctate cholelithiasis. No gallbladder wall thickening or distention. No ductal dilation. No filling defect within the common bile duct. Pancreas: Unremarkable. No ductal dilation. Spleen: Unremarkable. No splenomegaly. Adrenal glands: Unremarkable. No mass. Kidneys and ureters: Scattered subcentimeter cysts noted in both kidneys. No solid mass. No hydronephrosis. Stomach and bowel: Visualized stomach and intestines are unremarkable. Intraperitoneal space: No free fluid. Vasculature: No abdominal aortic aneurysm. Bones/joints: Unremarkable. Soft tissues: Unremarkable. MR/MR MRCP [id number] IMPRESSION: Cholelithiasis without findings to suggest acute cholecystitis or choledocholithiasis. COMMENTS: Consistent with the [employer] [place] [employer]'s Incidental Findings Committee white paper (J Am Derrek Radiol 2018): Any incidental renal lesion less than 1 cm or classified as too small to characterize, or any incidental cystic renal lesion characterized as simple-appearing, is likely benign. No follow-up imaging is recommended for these lesions per consensus recommendations based on imaging criteria.
[2022-08-18] MEDS: LORazepam 2 mg/mL INJ 1 mL 1 MG IVP (19:43)
[2022-08-18 22:50] LABS: Hepatitis A Antibody IgM Non-Reactive (Nonreactive); Hepatitis B Core IgM Non-Reactive (Nonreactive); Hepatitis B Surface Antigen Non-Reactive (Nonreactive); Hepatitis C Virus Antibody Non-Reactive (Nonreactive)
== END 2022-08-18 21:41 | disposition home or self-care (01) ==
PROVIDERS: Family Medicine; Emergency Provider Emergency Medicine; PCP Nurse Practitioner Family
DX: R74.01 Elevation of levels of liver transaminase levels (principal); R17 Unspecified jaundice; K80.20 Calculus of gallbladder without cholecystitis without obstruction
CPT/HCPCS: 74181; 76705; 80053; 80074; 81001; 83690; 85025; 96361; 96372; 96374; 96375; 96376; 99285; J2060; J2270; J2405; J2550; J7030

== ENCOUNTER 2022-08-19 15:10 | Emergency (ER) | payer MEDICAID, SELFPAY ==
[2022-08-19 15:46] LABS: Basophils % 0.5 %; Eosinophils # 0.1 10^3/uL (0.0-0.8); Eosinophils % 1.5 %; Hematocrit 42.9 % (37.0-47.0); Hemoglobin 14.2 g/dL (11.5-15.3); Lymphocytes # 2.4 10^3/uL (0.8-4.8); Lymphocytes % 29.7 %; Mean Corpuscular HGB Conc 33.1 g/dL (30.0-36.0); Mean Corpuscular Hemoglobin 29.6 pg (28.0-34.0); Mean Corpuscular Volume 89.4 fl (81-99); Monocytes # 0.4 10^3/uL (0.2-0.9); Monocytes % 4.3 %; Neutrophils # 5.12 10^3/uL (1.8-7.7); Neutrophils % 63.4 %; Nucleated Red Blood Cells % 0 %; Platelet Count 313 10^3/cmm (130-400); Red Cell Distribution Width 14.1 % (12.1-15.1); White Blood Count 8.1 10^3/uL (4.0-10.0)
[2022-08-19 16:24] LABS: Alanine Aminotransferase 560 U/L (0-33); Alkaline Phosphatase 277 U/L (35-105); Aspartate Amino Transferase 289 U/L (0-32); Blood Urea Nitrogen 8 mg/dL (6-20); Carbon Dioxide 24 mmol/L (22-29); Chloride 104 mmol/L (98-107); Globulin 3.4 g/dL (1.3-4.6); Glomerular Filtration Rate 92.2 mL/min (90-130); Glucose 108 mg/dL (65-115); Lipase 38 U/L (13-60); Osmolality Calculated 285 mOsm/kg (285-295); Sodium 138 mmol/L (136-145); Total Bilirubin 1.5 mg/dL (0.15-1.2); Total Protein 7.4 g/dL (6.6-8.7)
== END 2022-08-19 16:44 | disposition left against medical advice (07) ==
LOC: ER 15:12
PROVIDERS: Physician Assistant; Emergency Provider Family Medicine; PCP Nurse Practitioner Family
DX: Z53.21 Procedure and treatment not carried out due to patient leaving prior to being seen by health care provider (principal)
CPT/HCPCS: 36415; 80053; 83690; 85025

== ENCOUNTER 2022-08-19 17:05 | Observation (INO) | payer MEDICAID, SELFPAY ==
[2022-08-19 17:13] VITALS: BP 120/52; PULSE 102; RESP 16; TEMP 36.8; O2SAT 95
--- NOTE | 2022-08-19 17:58 | ED_ITS ---
HPI - Abdominal Pain General: Chief Complaint: Abdominal Pain Stated Complaint: ABDOMINAL PAIN Time Seen by Provider: 08/19/22 17:27 Source: patient Mode of arrival: ambulatory Limitations: no limitations History of Present Illness: This patient returns to the emergency department because of abdominal pain. She apparently has been to the emergency department on 2 separate occasions and told she had gallstones. She was discharged yesterday and now returns because of increasing pain. She states she ate a meal at [employer] approximately 3:00 this afternoon which increased her symptoms significantly. She apparently was given some oral medication for pain but has not taken it because it she states that bothers her stomach. She denies any fevers or chills. MD elicited complaint: abdominal pain Pain Consistency: intermittent Location: RUQ Quality: cramping Relieving factors: eating Associated Symptoms: Reports nausea; Denies chills, diarrhea, dysuria, fever(s), melena and vomiting Review of Systems Const: Denies: fever(s) or chills Eyes: Denies: change in vision ENMT: Denies: throat pain or odynophagia Card: Denies: chest pain, palpitations or irregular heart rhythm Resp: Denies: dyspnea, productive cough or non-productive cough GI: Reports: abdominal pain and nausea; Denies: vomiting, diarrhea or melena : Denies: flank pain, difficulty voiding, dysuria or urinary frequency Musc: Denies: back pain, extremity pain or extremity swelling Skin/Breast: Denies: rash Neuro: Denies: headache(s), numbness in extremities or weakness in extremities Psych: Denies: anxiety, depression or mood swings PFSH ED PFSH: Medical History Cholelithiasis GERD (gastroesophageal reflux disease) No pertinent past medical history Psychiatric care Surgical History History of 2011 History of esophagogastroduodenoscopy History of tubal ligation 2011 No history of previous surgery Family History Other Cancer Denies family history of Diabetes CAD (coronary artery disease) Dementia Chronic kidney disease (CKD) Anesthesia complication Bleeding disorder Lung disease Stroke Social History Smoking and tobacco status: never smoked Second hand smoke exposure: No Alcohol intake: former Caregiver/support person: Yes (spouse) Lives independently: Yes Household members: children Marital status: Legally service: No Current occupational status: unemployed Current gender identity: Female Special jaydon needs: No Physical Exam Narrative: EXAM NARRATIVE: Patient appears to be uncomfortable but answers questions appropriately. Const: COMMON NORMALS: average body habitus, patient oriented x3 and alert GENERAL APPEARANCE: in distress and anxious HENMT: COMMON NORMALS: normocephalic, Normal nasal mucous membranes and turbinates present, moist oral mucous membranes and oropharynx normal HEAD & SCALP: normocephalic NOSE: Normal nasal mucous membranes and turbinates present Eye: COMMON NORMALS: Equal, round and reactive pupils present, EOMs intact bilaterally and conjunctivae normal CONJUNCTIVA: Yes conjunctivae normal PUPIL: Yes Equal, round and reactive pupils present Neck/C-Spine: COMMON NORMALS: full ROM, no lymphadenopathy and no meningeal signs Chest: COMMONS NORMALS: normal inspection of the chest Resp: COMMON NORMALS: normal respiratory effort, No retractions and clear to auscultation bilaterally AUSCULTATION: clear to auscultation bilaterally Cardio: COMMON NORMALS: regular rate, regular rhythm, No murmurs present (Cardio) and Peripheral pulses 2+ throughout RATE: regular rate RHYTHM: regular rhythm PERIPHERAL PULSES: Peripheral pulses 2+ throughout GI: OTHER: George examination reveals voluntary guarding to palpation particularly in the epigastric area as well as right upper quadrant. No rebound. No peritoneal signs. No masses palpated. : COMMON NORMALS: Yes no CVA tenderness BLADDER/KIDNEY EXAM: Yes no CVA tenderness Back/Pelvis: COMMON NORMALS: no CVA tenderness, thoracic and lumbar spine normal to inspection, no thoracic nor lumbar tenderness and thoraco-lumbar ROM normal Extremity: COMMON NORMALS: normal to inspection, full ROM, no calf tenderness and no pedal edema Neuro: COMMON NORMALS: patient oriented x3, moves all extremities, no focal motor deficits and no sensory deficits noted SENSORIUM/ORIENTATION: Yes alert MENINGEAL SIGNS: Yes no meningeal signs Psych: COMMON NORMALS: mental status grossly normal Skin: COMMON NORMALS: no rashes or lesions noted, no wounds, turgor normal and no jaundice GENERAL SKIN EXAM: no rashes or lesions noted and turgor normal Course Reevaluation(s): Reevaluation #1: The patient appears to be more comfortable although she states she is in horrible pain. She has no peritoneal signs on repeat clinical examination other than voluntary guarding present. Plan on admitting to Dr. Garcia service for cholecystectomy as indicated. Time: 21:24 Consultations: Consultation #1: Discussed with Dr. Garcia and we reviewed her current work-up and findings. He agreed to admit the patient Time: 21:26 Vital Signs: Vital signs: Vital Signs Temperature 98.2 F 08/19/22 17:13 Pulse Rate 90 08/19/22 18:40 Respiratory Rate 16 08/19/22 17:13 Blood Pressure 131/94 08/19/22 18:40 Pulse Oximetry 97 08/19/22 18:40 Oxygen Delivery Me thod Room Air 08/19/22 18:40 MDM - Abdominal Pain Medical Decision Making Patient had at least 3 perhaps 4 visits to the emergency department for biliary colic symptoms. She returns today for same symptoms. No history of fevers. Clinical examination revealed significant right upper quadrant voluntary guarding without any rebound or peritoneal signs. Review of her imaging done yesterday revealed evidence of significant amount of Consuelo lithiasis on ultrasound and MRCP revealed no evidence of biliary tract obstruction or common bile duct enlargement. Due to her persistent symptoms and multiple emergency department visits Dr. Garcia was consulted who agreed to place the patient in the hospital and evaluate her for cholecystectomy. Medical Records I reviewed the patient's medical records. Gallbladder ultrasound as well as MR I of the right upper quadrant revealed cholelithiasis without any evidence of acute cholecystitis, common bile duct enlargement etc. Lab Data I reviewed the patient's lab results. 08/19/22 16:57 08/19/22 16:57 Labs/Radiology: Laboratory Results WBC 8.4 10^3/uL (4.0-10.0) 08/19/22 16:57 RBC 5.23 10^6/uL (4.1-5.3) 08/19/22 16:57 Hgb 14.9 g/dL (11.5-15.3) 08/19/22 16:57 Hct 45.5 % (37.0-47.0) 08/19/22 16:57 MCV 87.0 fl (81-99) 08/19/22 16:57 MCH 28.5 pg (28.0-34.0) 08/19/22 16:57 MCHC 32.7 g/dL (30.0-36.0) 08/19/22 16:57 RDW 14.0 % (12.1-15.1) 08/19/22 16:57 Plt Count 321 10^3/cmm (130-400) 08/19/22 16:57 MPV 10.9 fL (7.4-10.4) H 08/19/22 16:57 Neut % (Auto) 61.4 % 08/19/22 16:57 Lymph % (Auto) 30.4 % 08/19/22 16:57 Bryan % (Auto) 5.6 % 08/19/22 16:57 Eos % (Auto) 1.4 % 08/19/22 16:57 Baso % (Auto) 0.5 % 08/19/22 16:57 Neut # (Auto) 5.13 10^3/uL (1.8-7.7) 08/19/22 16:57 Lymph # (Auto) 2.5 10^3/uL (0.8-4.8) 08/19/22 16:57 Bryan # (Auto) 0.5 10^3/uL (0.2-0.9) 08/19/22 16:57 Eos # (Auto) 0.1 10^3/uL (0.0-0.8) 08/19/22 16:57 Baso # (Auto) 0.0 10^3/uL (0.0-0.1) 08/19/22 16:57 Nucleated RBC % (auto) 0 % 08/19/22 16:57 Nucleated RBCs # 0.0 /100WBC 08/19/22 16:57 Sodium 141 mmol/L (136-145) 08/19/22 16:57 Potassium 3.6 mmol/L (3.5-5.1) 08/19/22 16:57 Chloride 104 mmol/L (98-107) 08/19/22 16:57 Carbon Dioxide 22 mmol/L (22-29) 08/19/22 16:57 Anion Gap 18.6 (5-19) 08/19/22 16:57 BUN 8 mg/dL (6-20) 08/19/22 16:57 Creatinine 0.6 mg/dL (0.5-0.9) 08/19/22 16:57 GFR Calculation 110.2 mL/min (90-130) 08/19/22 16:57 Glucose 84 mg/dL (65-115) 08/19/22 16:57 Calculated Osmolality 290 mOsm/kg (285-295) 08/19/22 16:57 Calcium 8.9 mg/dL (8.5-10.5) 08/19/22 16:57 Total Bilirubin 1.9 mg/dL (0.15-1.2) H 08/19/22 16:57 AST 392 U/L (0-32) H 08/19/22 16:57 ALT 603 U/L (0-33) H 08/19/22 16:57 Alkaline Phosphatase 320 U/L (35-105) H 08/19/22 16:57 Total Protein 7.5 g/dL (6.6-8.7) 08/19/22 16:57 Albumin 4.5 g/dL (3.5-5.2) 08/19/22 16:57 Globulin 3.0 g/dL (1.3-4.6) 08/19/22 16:57 Lipase 39 U/L (13-60) 08/19/22 16:57 HCG, Qual Negative (Negative) 08/18/22 14:33 Discharge Plan Discharge Patient Disposition: Placed in Observation Clinical Impression: Biliary colic, Cholelithiasis Condition: Stable Prescriptions: No Action sumatriptan succinate 100 mg tablet See Rx Instructions PO .COMPLEX Qty: 14 3RF Rx Instructions: take 1 tab at onset of headache; if no relief, may repeat 1 tab after at least 2 hrs; max = 2 tabs/24 hrs PO sucralfate 100 mg/mL suspension 1 g PO BID 28 Days Qty: 560 0RF pantoprazole [Protonix] [address] for susp in packet 40 mg PO DAILY 28 Days Qty: 30 0RF promethazine 6.25 mg/5 mL syrup 25 mg PO TID PRN (Reason: nausea and vomiting) Qty: 473 0RF ondansetron 4 mg tablet,disintegrating 4 mg PO Q8H PRN (Reason: nausea and vomiting) Qty: 15 0RF oxycodone 5 mg tablet 5 mg PO Q4H PRN (Reason: pain) Qty: 10 0RF Referrals: Metzger,Phoebe, [employer]ION[employer] 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
[2022-08-19 18:21] LABS: Basophils % 0.5 %; Eosinophils # 0.1 10^3/uL (0.0-0.8); Eosinophils % 1.4 %; Hematocrit 45.5 % (37.0-47.0); Hemoglobin 14.9 g/dL (11.5-15.3); Lymphocytes # 2.5 10^3/uL (0.8-4.8); Lymphocytes % 30.4 %; Mean Corpuscular HGB Conc 32.7 g/dL (30.0-36.0); Mean Corpuscular Hemoglobin 28.5 pg (28.0-34.0); Mean Platelet Volume 10.9 fL (7.4-10.4); Monocytes # 0.5 10^3/uL (0.2-0.9); Monocytes % 5.6 %; Neutrophils # 5.13 10^3/uL (1.8-7.7); Neutrophils % 61.4 %; Nucleated Red Blood Cells % 0 %; Platelet Count 321 10^3/cmm (130-400); Red Blood Count 5.23 10^6/uL (4.1-5.3); White Blood Count 8.4 10^3/uL (4.0-10.0)
[2022-08-19 18:22] VITALS: BP 116/71; PULSE 93; O2SAT 100
[2022-08-19] MEDS: sodium chloride 0.9% 1,000 ML 999 ML IV (18:22)
[2022-08-19] MEDS: haloperidol inj 5 mg/mL INJ 1 mL IVP (18:25)
[2022-08-19] MEDS: diphenhydrAMINE 50 mg/mL SDV 1mL 25 MG IVP (18:25)
[2022-08-19 18:34] LABS: Alanine Aminotransferase 603 U/L (0-33); Albumin Level 4.5 g/dL (3.5-5.2); Alkaline Phosphatase 320 U/L (35-105); Anion Gap 18.6 (5-19); Aspartate Amino Transferase 392 U/L (0-32); Blood Urea Nitrogen 8 mg/dL (6-20); Calcium 8.9 mg/dL (8.5-10.5); Carbon Dioxide 22 mmol/L (22-29); Chloride 104 mmol/L (98-107); Glomerular Filtration Rate 110.2 mL/min (90-130); Glucose 84 mg/dL (65-115); Lipase 39 U/L (13-60); Osmolality Calculated 290 mOsm/kg (285-295); Potassium 3.6 mmol/L (3.5-5.1); Sodium 141 mmol/L (136-145); Total Bilirubin 1.9 mg/dL (0.15-1.2); Total Protein 7.5 g/dL (6.6-8.7)
[2022-08-19 18:40] VITALS: BP 131/94; PULSE 90; O2SAT 97
[2022-08-19 21:08] LABS: HCG Qualitative Urine. Negative (Negative)
[2022-08-19 21:19] VITALS: PULSE 69; O2SAT 96
[2022-08-19] MEDS: HYDROmorphone 1 mg/mL INJ 1 mL 0.5 MG IVP (22:24)
[2022-08-19] MEDS: lactated ringers 1,000 ML 100 ML IV (22:24)
[2022-08-19] MEDS: ondansetron 2 mg/ML SDV 2 mL 4 MG IVP (22:24)
[2022-08-19 23:30] VITALS: BMI 25.8
[2022-08-20] VITALS (11 sets, daily range): BP systolic 98–114; BP diastolic 64–75; PULSE 64–81; RESP 14–20; TEMP 36.4–37.1; O2SAT 93–100
--- NOTE | 2022-08-20 08:08 | PC.PHAR ---
PT [facility] HAS ALL THESE MEDICATIONS BUT DOES NOT TAKE THEM- PT SEEN TWO DAYS AGO AND STATED THE SAME
--- NOTE | 2022-08-20 10:26 | P.HP_ITS ---
Providers/Chief Complaint Admitting Physician: Tray Garcia DO Primary Care Provider: Phoebe Metzger APN Chief Complaint: ABDOMINAL PAIN History of Present Illness Olga Nair is a 42 year old female who presented to the hospital with 5- day history of epigastric and right upper quadrant abdominal pain radiating to her back. The pain is dull and constant but can be sharp at times. Eating makes pain worse. Nothing makes pain better. She does have associated nausea and vomiting. She denies any diarrhea or constipation. Denies any hematochezia and/or melena. She has had multiple presentations to the ER in the last 5 days. She was found to have cholelithiasis, hyperbilirubinemia and elevated transaminases. MRCP did not show choledocholithiasis Review of Systems General: Reports: 10 or more systems reviewed and unremarkable except in HPI and below Medications/Allergies Home Medications Medication Instructions Recorded Confirmed Last Taken Type sumatriptan succinate 100 mg tablet See Rx Instructions PO .COMPLEX 08/06/22 08/20/22 Unknown Rx #14 tabs pantoprazole 40 mg granules 40 mg PO DAILY 4 weeks #30 ea 08/16/22 08/20/22 Unknown Rx delayed-release for susp in packet (Protonix) promethazine 6.25 mg/5 mL oral 25 mg (20 mL) PO TID PRN nausea 08/16/22 08/20/22 Unknown Rx syrup and vomiting #473 mL sucralfate 100 mg/mL oral 1 g (10 mL) PO BID 4 weeks #560 mL 08/16/22 08/20/22 Unknown Rx suspension ondansetron 4 mg disintegrating 4 mg PO Q8H PRN nausea and 08/18/22 08/20/22 Unknown Rx tablet vomiting #15 tabs oxycodone 5 mg tablet 5 mg PO Q4H PRN pain #10 tabs 08/18/22 08/20/22 Unknown Rx Allergies Allergy/AdvReac Type Severity Reaction Status Date / Time No Known Allergies Allergy Verified 08/19/22 17:20 PFSH Acute PFSH: Medical History (Updated 08/20/22 @ 10:29 by Tray Garcia DO) Cholelithiasis GERD (gastroesophageal reflux disease) Helicobacter pylori gastritis No pertinent past medical history Psychiatric care Surgical History History of 2012 History of esophagogastroduodenoscopy History of tubal ligation 2012 No history of previous surgery Family History Other Cancer Denies family history of Diabetes CAD (coronary artery disease) Dementia Chronic kidney disease (CKD) Anesthesia complication Bleeding disorder Lung disease Stroke Social History Smoking and tobacco status: never smoked Second hand smoke exposure: No Alcohol intake: former Caregiver/support person: Yes (spouse) Lives independently: Yes Household members: children Marital status: Legally service: No Current occupational status: unemployed Current gender identity: Female Special jaydon needs: No Vitals/I&O/Wt Last Vital Signs Temp 98.5 F 08/20/22 08:00 Pulse 74 08/20/22 08:00 Resp 14 08/20/22 08:00 BP 101/66 08/20/22 03:44 Pulse Ox 97 08/20/22 08:00 O2 Del Method Room Air 08/20/22 03:44 08/19/22 08/20/22 08/20/22 22:59 06:59 14:59 Intake Total 1000 / 1000 Balance 1000 / 1000 Weight last 48 hrs Weight 160 lb Weight 160 lb Physical Exam Narrative: General : Patient is well developed , no acute distress, oriented x3 Head : Normal cephalic, a-traumatic. Ears : Pinnae and external canal are normal. Hearing is normal. Eyes : PERRLA, Sclera and injection are normal. No conjunctival discharge. Nose : Mucous membranes are without erythema. Throat : buccal mucosa is normal, gums are without significant recession or hypertrophy. Lungs : Equal chest rise bilaterally, no use of accessory muscles, trachea is midline. Cor : Rate and rhythm are normal. Abdomen : Soft, ND, tender to palpation right upper quadrant, negative Urias's, no g/r/m Extremities : No edema, no cyanosis or clubbing, dorsalis pedis pulses are present bilaterally, non-tender to palpation of calves. Upper extremities are normal bilaterally. Back : non-tender to palpation, no CVA tenderness. Neuro : CN II - XII intact, Upper and lower extremities have equal and full strength Data 08/19/22 16:57 08/19/22 16:57 A&P Assessment and plan (1) Symptomatic cholelithiasis: (2) Hyperbilirubinemia: Plan Laparoscopic cholecystectomy The risks and benefits of the procedure, including but not limited to, bleeding, infection, scar, numbness, pain, damage to surrounding structures, damage to common bile duct requiring additional surgery, conversion to an open procedure, were explained to the patient. He is understanding of the risks and wishes to proceed. Attestations Medical Necessity Statement*: Patient requires a least 1 more night in the hospital for recovery after laparoscopic cholecystectomy and laboratory tests for resolution of h yperbilirubinemia Coding Level of Care Code Acute Code for Chg Fwd Diagnoses Symptomatic cholelithiasis K80.20 Hyperbilirubinemia E80.6
[2022-08-20] MEDS: sodium chloride 0.9% 1,000 ML 30 ML IV (10:35)
[2022-08-20] MEDS: scopolamine 1.5 Patch 1 PATCH TRANSDERMA (10:38)
[2022-08-20] MEDS: ceFAZolin 2,000 MG in sodium chloride 0.9% (plus) 50 ML 100 MG IV (11:09)
[2022-08-20] MEDS: lidocaine-epi 2% 20 mL INJ 10 ML INJECTION (11:34)
--- NOTE | 2022-08-20 11:45 | P.OP_ITS ---
Operative Report Date of procedure: August 20, 2022 Pre-op diagnosis: Symptomatic cholelithiasis Post-op diagnosis: same Procedure done: Laparoscopic cholecystectomy Implants: None Specimens removed/disposition: Gallbladder Surgeon: Dr. Tray Garcia DO Anesthesia: General Estimated blood loss (mL): 5 Complications: None apparent Brief History: This very pleasant 42-year-old female who presented to the hospital with symptomatic cholelithiasis and hyperbilirubinemia. Laparoscopic cholecystectomy was indicated. The risk and benefits were explained and documented. Procedure: Patient was wheeled into the operative room and placed on the OR table in a supine position. Abdomen was inspected prepped and draped in usual sterile fashion. Time-out was performed and all present were in agreement. A 15 blade scalp was used to make a stab incision in the left upper quadrant and intra- abdominal insufflation was achieved using a Veress needle. After localizing the tissue incisions were made and a 5 millimeter trocar was placed into the umbilicus as well as 2 in the right upper quadrant. A 12 millimeter trocar was placed in the epigastrium. Gallbladder was grasped and elevated. The gallbladder was very distended. The triangle of Calot was carefully dissected using blunt dissection and electrocautery until the triangle of Calot clearly identified. The cystic duct was tortuous, dilated and enclosed within the fat. The cystic duct was clipped proximally and double clipped distally. The duct was then ligated proximally. The cystic artery was doubly clipped and ligated. The gallbladder was then removed from the liver bed using electrocautery. The gallbladder was removed from the abdomen using an Endo-Catch bag through the epigastric incision. The liver bed was inspected and no bleeding was seen. The abdomen was irrigated and suctioned. All ports removed. Skin was washed and dried. Incisions were closed with 4-0 Monocryl in a subcuticular interrupted fashion. Skin glue was applied. Patient tolerated the procedure well.
--- NOTE | 2022-08-20 12:03 | ANES.PREANE2 ---
Pre-Anesthetic Assessment Height/Weight: Height 1.68 m Weight 72.575 kg Temp Pulse Resp BP Pulse Ox O2 Del Method O2 Flow Rate 97.5 F L 75 19 H 110/71 100 Simple Mask 6 08/20/22 11:55 08/20/22 12:01 08/20/22 12:01 08/20/22 12:01 08/20/22 12:01 08/20/22 12:01 08/20/22 12:01 Operation Date: 08/20/22 12:55 Proposed Procedures p Laparoscopic Cholecystectomy(Not Applicable) - Tray Garcia DO Familial anesthetic complications: none Was Beta Juanito taken within 24 hours: N/A Was Clonidine taken within 24 hours: N/A Last intake: Intake Last Liquid Date 08/19/22 Last Liquid Time 15:00 Last Solid Date 08/19/22 Last Solid Time 15:00 Social No alcohol and No tobacco Exam alert, oriented x 3, clear to auscultation bilaterally and regular rate & rhythm Airway Submandibular: within normal limits Cervical ROM: within normal limits Mallampati: Class II Dentition: full GI Gastroesophageal Reflux Disease Neuropsych Anxiety and Depression Anesthetic Plan ASA status: 2 Anesthesia: General Medications/Allergies Home Medications Medication Instructions Recorded Confirmed Last Taken Type sumatriptan succinate 100 mg tablet See Rx Instructions PO .COMPLEX 08/06/22 08/20/22 Unknown Rx #14 tabs pantoprazole 40 mg granules 40 mg PO DAILY 4 weeks #30 ea 08/16/22 08/20/22 Unknown Rx delayed-release for susp in packet (Protonix) promethazine 6.25 mg/5 mL oral 25 mg (20 mL) PO TID PRN nausea 08/16/22 08/20/22 Unknown Rx syrup and vomiting #473 mL sucralfate 100 mg/mL oral 1 g (10 mL) PO BID 4 weeks #560 mL 08/16/22 08/20/22 Unknown Rx suspension ondansetron 4 mg disintegrating 4 mg PO Q8H PRN nausea and 08/18/22 08/20/22 Unknown Rx tablet vomiting #15 tabs oxycodone 5 mg tablet 5 mg PO Q4H PRN pain #10 tabs 08/18/22 08/20/22 Unknown Rx Allergies Allergy/AdvReac Type Severity Reaction Status Date / Time No Known Allergies Allergy Verified 08/19/22 17:20 Current Medications Generic Name Dose Route Start Last Admin Trade Name Reji PRN Reason Stop Dose Admin Lactated Ringer's 1,000 mls @ 100 mls/hr 08/19/22 21:45 08/19/22 22:24 Lactated Ringers IV 100 mls/hr .Q10H MERYL Administration Sodium Chloride 1,000 mls @ 30 mls/hr 08/20/22 10:15 08/20/22 10:35 Sodium Chloride 0.9% IV 08/21/22 10:14 30 mls/hr .Q24H MERYL Administration PFSH Anesthesia Medical History (Updated 08/20/22 @ 10:29 by Tray Garcia DO) Cholelithiasis GERD (gastroesophageal reflux disease) Helicobacter pylori gastritis No pertinent past medical history Psychiatric care Surgical History History of 2011 History of esophagogastroduodenoscopy History of tubal ligation 2011 No history of previous surgery Family History Other Cancer Denies family history of Diabetes CAD (coronary artery disease) Dementia Chronic kidney disease (CKD) Anesthesia complication Bleeding disorder Lung disease Stroke Social History Smoking and tobacco status: never smoked Second hand smoke exposure: No Alcohol intake: former Caregiver/support person: Yes (spouse) Lives independently: Yes Household members: children Marital status: Legally service: No Current occupational status: unemployed Current gender identity: Female Special jaydon needs: No Data Anesthesia 08/19/22 16:57 08/19/22 16:57 Short CBC 08/19/22 Range/Units 16:57 WBC 8.4 (4.0-10.0) 10^3/uL Hgb 14.9 (11.5-15.3) g/dL Hct 45.5 (37.0-47.0) % MCV 87.0 (81-99) fl Plt Count 321 (130-400) 10^3/cmm Neut % (Auto) 61.4 % Neut # (Auto) 5.13 (1.8-7.7) 10^3/uL BMP 08/19/22 16:57 Sodium 141 Potassium 3.6 Chloride 104 Carbon Dioxide 22 BUN 8 Creatinine 0.6 Glucose 84 Calcium 8.9 Liver Function 08/19/22 Range/Units 16:57 Total Bilirubin 1.9 H (0.15-1.2) mg/dL AST 392 H (0-32) U/L ALT 603 H (0-33) U/L Alkaline Phosphatase 320 H (35-105) U/L Albumin 4.5 (3.5-5.2) g/dL Cardiac Studies: No Data to Display
[2022-08-20] MEDS: HYDROcodone-acetaminophen 7.5-325 mg Tablet 1 TAB PO ×2 (12:59→17:57)
[2022-08-20] MEDS: sodium chloride 0.9% 1,000 ML 100 ML IV (13:00)
--- NOTE | 2022-08-20 15:27 | ANE.PACU2 ---
Inpatient post-anesthesia follow up: Airway intact: Yes Vital signs: Temperature 97.5 F Pulse Rate 64 Respiratory Rate 20 Blood Pressure 105/69 Pulse Oximetry 93 Oxygen Delivery Me thod Room Air Oxygen Flow Rate 6 Fraction of Inspir ed Oxygen Hydration adequate: Yes Nausea and vomiting: No Pain level: 3 Mental status: Baseline
--- NOTE | 2022-08-20 16:57 | P.DS_ITS ---
Discharge Providers Date of Admission: 08/19/22 21:31 Date of Discharge: August 20, 2022 Attending Provider at Admission: Tray Garcia DO Attending Provider at Discharge: Tray Garcia DO Primary Care Provider: Phoebe Metzger APN Diagnoses at Discharge Discharge Diagnosis (1) Symptomatic cholelithiasis: Status: Acute (2) Hyperbilirubinemia: Status: Acute Reason for Visit Reason for Visit: ABDOMINAL PAIN Hospital Course Hospital Course This very pleasant 42-year-old female who presented to the hospital after multiple presentations to the ER with right upper quadrant abdominal pain that radiated to her back along with nausea and vomiting. She had hyperbilirubinemia and cholelithiasis. She underwent laparoscopic cholecystectomy without evident complication. She did well postoperatively and was discharged home in good condition and with proper follow-up. Physical Exam Narrative: General : Patient is well developed , no acute distress, oriented x3 Head : Normal cephalic, a-traumatic. Ears : Pinnae and external canal are normal. Hearing is normal. Eyes : PERRLA, Sclera and injection are normal. No conjunctival discharge. Nose : Mucous membranes are without erythema. Throat : buccal mucosa is normal, gums are without significant recession or hypertrophy. Lungs : Equal chest rise bilaterally, no use of accessory muscles, trachea is midline. Cor : Rate and rhythm are normal. Abdomen : Soft, ND, appropriately tender to palpation, no g/r/m Incisions intact without erythema or exudate Extremities : No edema, no cyanosis or clubbing, dorsalis pedis pulses are present bilaterally, non-tender to palpation of calves. Upper extremities are normal bilaterally. Back : non-tender to palpation, no CVA tenderness. Neuro : CN II - XII intact, Upper and lower extremities have equal and full strength Discharge Data Studies Completed and Pending Pending at discharge Category Date Time Status CBC Auto Diff [Complete Blood Count w/Auto] AM LABS Lab 08/21/22 04:00 Ordered CBC Auto Diff [Complete Blood Count w/Auto] AM LABS Lab 08/22/22 04:00 Ordered CBC Auto Diff [Complete Blood Count w/Auto] AM LABS Lab 08/23/22 04:00 Ordered CMP [Comprehensive Metabolic Panel] AM LABS Lab 08/21/22 04:00 Ordered Pathology: Surgical [PTH] Routine Pth 08/20/22 11:36 Received Laboratory Results WBC 8.4 10^3/uL (4.0-10.0) 04/12/23 16:57 RBC 5.23 10^6/uL (4.1-5.3) 08/19/22 16:57 Hgb 14.9 g/dL (11.5-15.3) 08/19/22 16:57 Hct 45.5 % (37.0-47.0) 08/19/22 16:57 MCV 87.0 fl (81-99) 08/19/22 16:57 MCH 28.5 pg (28.0-34.0) 08/19/22 16:57 MCHC 32.7 g/dL (30.0-36.0) 08/19/22 16:57 RDW 14.0 % (12.1-15.1) 08/19/22 16:57 Plt Count 321 10^3/cmm (130-400) 08/19/22 16:57 MPV 10.9 fL (7.4-10.4) H 08/19/22 16:57 Neut % (Auto) 61.4 % 08/19/22 16:57 Lymph % (Auto) 30.4 % 08/19/22 16:57 [place] % (Auto) 5.6 % 08/19/22 16:57 Eos % (Auto) 1.4 % 08/19/22 16:57 Baso % (Auto) 0.5 % 08/19/22 16:57 Neut # (Auto) 5.13 10^3/uL (1.8-7.7) 08/19/22 16:57 Lymph # (Auto) 2.5 10^3/uL (0.8-4.8) 08/19/22 16:57 [place] # (Auto) 0.5 10^3/uL (0.2-0.9) 08/19/22 16:57 Eos # (Auto) 0.1 10^3/uL (0.0-0.8) 08/19/22 16:57 Baso # (Auto) 0.0 10^3/uL (0.0-0.1) 08/19/22 16:57 Nucleated RBC % (auto) 0 % 08/19/22 16:57 Nucleated RBCs # 0.0 /100WBC 08/19/22 16:57 Sodium 141 mmol/L (136-145) 08/19/22 16:57 Potassium 3.6 mmol/L (3.5-5.1) 08/19/22 16:57 Chloride 104 mmol/L (98-107) 08/19/22 16:57 Carbon Dioxide 22 mmol/L (22-29) 08/19/22 16:57 Anion Gap 18.6 (5-19) 08/19/22 16:57 BUN 8 mg/dL (6-20) 08/19/22 16:57 Creatinine 0.6 mg/dL (0.5-0.9) 08/19/22 16:57 GFR Calculation 110.2 mL/min (90-130) 08/19/22 16:57 Glucose 84 mg/dL (65-115) 08/19/22 16:57 Calculated Osmolality 290 mOsm/kg (285-295) 08/19/22 16:57 Calcium 8.9 mg/dL (8.5-10.5) 08/19/22 16:57 Total Bilirubin 1.9 mg/dL (0.15-1.2) H 08/19/22 16:57 AST 392 U/L (0-32) H 08/19/22 16:57 ALT 603 U/L (0-33) H 08/19/22 16:57 Alkaline Phosphatase 320 U/L (35-105) H 08/19/22 16:57 Total Protein 7.5 g/dL (6.6-8.7) 08/19/22 16:57 Albumin 4.5 g/dL (3.5-5.2) 08/19/22 16:57 Globulin 3.0 g/dL (1.3-4.6) 08/19/22 16:57 Lipase 39 U/L (13-60) 08/19/22 16:57 HCG, Qual Negative (Negative) 08/18/22 14:33 Procedures Performed Laparoscopic cholecystectomy Vitals Last Vital Signs Temp 98.2 F 08/20/22 16:00 Pulse 75 08/20/22 16:00 Resp 17 08/20/22 16:00 BP 102/70 08/20/22 16:00 Pulse Ox 97 08/20/22 16:00 O2 Del Method Room Air 08/20/22 12:15 O2 Flow Rate 6 08/20/22 12:05 Discharge Plan Discharge Patient Disposition: Home Condition: Stable Prescriptions: New oxycodone-acetaminophen 10-325 mg tablet 1 tab PO Q6H PRN (Reason: pain) Qty: 20 0RF docusate sodium [DOK] 100 mg capsule 100 mg PO BID Qty: 14 0RF Continued sumatriptan succinate 100 mg tablet See Rx Instructions PO .COMPLEX Qty: 14 3RF Rx Instructions: take 1 tab at onset of headache; if no relief, may repeat 1 tab after at least 2 hrs; max = 2 tabs/24 hrs PO sucralfate 100 mg/mL suspension 1 g PO BID 28 Days Qty: 560 0RF pantoprazole [Protonix] [address] for susp in packet 40 mg PO DAILY 28 Days Qty: 30 0RF promethazine 6.25 mg/5 mL syrup 25 mg PO TID PRN (Reason: nausea and vomiting) Qty: 473 0RF ondansetron 4 mg tablet,disintegrating 4 mg PO Q8H PRN (Reason: nausea and vomiting) Qty: 15 0RF Held oxycodone 5 mg tablet 5 mg PO Q4H PRN (Reason: pain) Qty: 10 0RF Hold Instructions: Resume on 08/25/22. Discharge Orders: Discharge Order (Routine); Ordered 08/20/22 Ordered By: Tray Garcia Referrals: Phoebe Metzger APN [Primary Care Provider] - Tray Garcia DO [Physician] - 2 weeks Discharge Diet: Advance as tolerated Discharge Activity: Resume usual activity Patient Instructions: Opioid Safety, Post Anesthesia Care Activity Restrictions/Additional Instructions: Do not soak incisions underwater for 2 weeks. Shower daily. Discharge Attestations Time Spent in Discharge Care*: less than 30 min Quality Metrics Clinical Quality Measures [ No reported AMI, CVA or VTE this stay] Coding Level of Care Code Acute Code for Chg Fwd Diagnoses Symptomatic cholelithiasis K80.20 Hyperbilirubinemia E80.6
== END 2022-08-20 18:11 | disposition home or self-care (01) ==
LOC: ER 21:26 → MEDSURG 22:15
PROVIDERS: Admitting Provider Surgery; Emergency Provider Emergency Medicine; PCP Nurse Practitioner Family; Visit Provider Surgery
PROC: 0FT44ZZ Resection of Gallbladder, Percutaneous Endoscopic Approach (ICD-10-PCS; CPT 47562; principal; 2022-08-20 12:35)
DX: K80.10 Calculus of gallbladder with chronic cholecystitis without obstruction (principal); E80.6 Other disorders of bilirubin metabolism; K21.9 Gastro-esophageal reflux disease without esophagitis
CPT/HCPCS: 47562; 80053; 81025; 83690; 85025; 88304; 96374; 96375; 99285; G0378; J0330; J0690; J1100; J1170; J1200; J1630; J2250; J2405; J2704; J3010; J3490; J7030; J7120

== ENCOUNTER 2022-08-25 10:23 | Emergency (ER) | payer MEDICAID, SELFPAY ==
[2022-08-25] VITALS (14 sets, daily range): BP systolic 112–128; BP diastolic 65–79; PULSE 117–138; RESP 16–18; TEMP 36.8; O2SAT 94–100; BMI 26.4
--- NOTE | 2022-08-25 11:24 | ED_ITS ---
Documented by User: Jorge Ryan DO 08/26/22 05:52 HPI - Abdominal Pain General: Chief Complaint: Abdominal Pain Stated Complaint: abd pain/swelling Time Seen by Provider: 08/25/22 11:22 Source: patient Mode of arrival: ambulatory History of Present Illness: 42-year-old female history of cholecystectomy 5 days ago. States she been having increased abdominal pain throughout the day. She denies any known fevers she has had no vomiting she has had nausea she denies any worsening proving fact ors states pain is currently an 8 out of 10. She has noticed diminished flatulence and bowel movements. She has also had some dysuria and noticed darkening of her urine. No fever sweats or chills. MD elicited complaint: abdominal pain Pertinent past history: constipation Onset (ago): day(s) (3) Pain Consistency: constant Location: Diffuse Severity: moderate Quality: cramping Radiation: none Migration to: no migration Exacerbating factors: nothing Relieving factors: nothing Associated Symptoms: Reports anorexia, bloating, change in bowel habits, GI cramping, nausea, poor appetite and vomiting; Denies belching, change in stool character, chills, coffee ground emesis, constipation, diarrhea, dyspepsia, dysuria, excessive flatus, fever(s), heartburn, hematochezia, hematuria, hematemesis, fecal incontinence, loose stools, melena and syncope Review of Systems Const: Reports: malaise; Denies: fever(s), chills or fatigue ENMT: Denies: throat pain, ear or mastoid pain, nasal discharge or nasal congestion Card: Denies: chest pain or syncope Resp: Denies: dyspnea, productive cough or non-productive cough GI: Reports: abdominal pain, nausea, vomiting, bloating, GI cramping and change in bowel habits; Denies: hematemesis, coffee ground emesis, heartburn, diarrhea, constipation, belching, excessive flatus, fecal incontinence, change in stool character, hemat ochezia or melena : Denies: dysuria, urinary frequency, urinary urgency or hematuria Skin/Breast: Denies: rash or pruritus PFSH ED PFSH: Medical History Cholelithiasis GERD (gastroesophageal reflux disease) Helicobacter pylori gastritis No pertinent past medical history Psychiatric care Surgical History History of 2011 History of esophagogastroduodenoscopy History of tubal ligation 2011 No history of previous surgery Family History Other Cancer Denies family history of Diabetes CAD (coronary artery disease) Dementia Chronic kidney disease (CKD) Anesthesia complication Bleeding disorder Lung disease Stroke Social History Smoking and tobacco status: never smoked Second hand smoke exposure: No Alcohol intake: former Caregiver/support person: Yes (spouse) Lives independently: Yes Household members: children Marital status: Legally service: No Current occupational status: unemployed Current gender identity: Female Special jaydon needs: No Physical Exam Const: GENERAL APPEARANCE: cooperative ORIENTATION/CONSCIOUSNESS: Yes awake, Yes oriented to person, Yes oriented to place and Yes oriented to time HENMT: COMMON NORMALS: normocephalic, atraumatic and hearing grossly normal bilaterally HEAD & SCALP: normocephalic and atraumatic Resp: COMMON NORMALS: normal respiratory effort, No retractions, No use of accessory muscles and clear to auscultation bilaterally AUSCULTATION: clear to auscultation bilaterally Cardio: COMMON NORMALS: regular rate, regular rhythm and No murmurs present (Cardio) RATE: regular rate RHYTHM: regular rhythm GI: COMMON NORMALS: No hepatosplenomegaly present AUSCULTATION: Yes Hypoactive bowel sounds present PALPATION: Yes Tenderness to palpation present (GI), Yes Guarding due to palpation present (GI) and Yes No hepatosplenomegaly present Extremity: COMMON NORMALS: normal to inspection, capillary refill normal, no clubbing, cyanosis or edema, no calf tenderness and no pedal edema Neuro: SENSORIUM/ORIENTATION: Yes oriented to person, Yes oriented to place and Yes oriented to time Skin: COMMON NORMALS: no rashes or lesions noted GENERAL SKIN EXAM: no rashes or lesions noted Course Vital Signs: Vital signs: Vital Signs Temperature 98.2 F 08/25/22 10:38 Pulse Rate 117 H 08/25/22 21:28 Respiratory Rate 16 08/25/22 21:25 Blood Pressure 116/72 08/25/22 21:28 Pulse Oximetry 95 04/18/23 21:28 Oxygen Delivery Me thod Room Air 08/25/22 21:28 MDM - Abdominal Pain Medical Decision Making Initial CT shows large amount of fluid in the abdomen. There is concern of a bile leak or possible hemoperitoneum per the radiologist. There is a very small amount of air consistent with her recent surgery that is not felt to be from perforation. Patient cultured started on antibiotics given IV fluids she was hypotensive and tachycardic she did respond well to diet. After discussion with both Dr. Garcia and Dr. Mullen we recommended a HIDA scan to evaluate for bile leak. At change of shift the HIDA scan is pending radiology read. If there is a bile leak the plan will be to transfer the patient. Dr. Garcia has been kept abreast of patient's condition in the emergency room. I have reviewed and discussed with him he recommends transfer if there is a bile leak she is she will need an ERCP. Care signed out to Dr. Amaro at change of shift. See final notes for diagnosis and disposition. Patient presents here with abdominal pain CT and HIDA scan show likely bile leak patient's been started on IV antibiotics here I did speak to GI at [place] will transfer there for high-level care for ERCP. Medical Records I reviewed the patient's medical records. Lab Data I reviewed the patient's lab results. 08/25/22 11:53 08/25/22 11:53 Labs/Radiology: Radiology Impressions Abdomen/Pelvis CT 08/25/22 11:29 IMPRESSION: 1. Mildly dense fluid surrounding the liver extending along the RIGHT paracolic gutter into the pelvis. The amount of free fluid is more than expected for uncomplicated cholecystectomy. Consider hemoperitoneum, bile leak or mesenteric injury. HIDA scan may be helpful. 2. Additional increased fluid dissecting into the soft tissues of the muscles along the RIGHT lateral abdominal wall. May be postoperative bleeding. Phlegmonous infectious process should also be considered. 3. There is a tiny focus of free air towards the RIGHT diaphragm which would be appropriate for the recent surgery. 4. Urinary bladder is decompressed due to the peritoneal fluid extending into the pelvis. Notified Jorge Ryan DO at 08/25/2022 2:00 PM. Hepatobiliary Scan Nuclear Medicine 08/25/22 13:55 IMPRESSION: Findings suspicious for biliary leakage on nuclear medicine HIDA scan. There is activity appearing on the 30 minute image which increases over time along the inferior right hepatic lobe at the site of the collection on the comparison CT scan. Laboratory Results WBC 18.5 10^3/uL (4.0-10.0) H 08/25/22 11:53 RBC 5.60 10^6/uL (4.1-5.3) H 08/25/22 11:53 Hgb 16.3 g/dL (11.5-15.3) H 08/25/22 11:53 Hct 50.6 % (37.0-47.0) H 08/25/22 11:53 MCV 90.4 fl (81-99) 08/25/22 11:53 MCH 29.1 pg (28.0-34.0) 08/25/22 11:53 MCHC 32.2 g/dL (30.0-36.0) 08/25/22 11:53 RDW 14.1 % (12.1-15.1) 08/25/22 11:53 Plt Count 370 10^3/cmm (130-400) 08/25/22 11:53 MPV 10.3 fL (7.4-10.4) 08/25/22 11:53 Neut % (Auto) 82.4 % 08/25/22 11:53 Lymph % (Auto) 8.1 % 08/25/22 11:53 [place] % (Auto) 7.5 % 08/25/22 11:53 Eos % (Auto) 0.6 % 08/25/22 11:53 Baso % (Auto) 0.3 % 08/25/22 11:53 Neut # (Auto) 15.26 10^3/uL (1.8-7.7) H 08/25/22 11:53 Lymph # (Auto) 1.5 10^3/uL (0.8-4.8) 08/25/22 11:53 [place] # (Auto) 1.4 10^3/uL (0.2-0.9) H 08/25/22 11:53 Eos # (Auto) 0.1 10^3/uL (0.0-0.8) 08/25/22 11:53 Baso # (Auto) 0.1 10^3/uL (0.0-0.1) 08/25/22 11:53 Nucleated RBC % (auto) 0 % 08/25/22 11:53 Nucleated RBCs # 0.0 /100WBC 08/25/22 11:53 Sodium 129 mmol/L (136-145) L 08/25/22 11:53 Potassium 4.2 mmol/L (3.5-5.1) 08/25/22 11:53 Chloride 90 mmol/L (98-107) L 08/25/22 11:53 Carbon Dioxide 27 mmol/L (22-29) 08/25/22 11:53 Anion Gap 16.2 (5-19) 08/25/22 11:53 BUN 8 mg/dL (6-20) 08/25/22 11:53 Creatinine 0.6 mg/dL (0.5-0.9) 08/25/22 11:53 GFR Calculation 110.2 mL/min (90-130) 08/25/22 11:53 Glucose 122 mg/dL (65-115) H 08/25/22 11:53 Calculated Osmolality 268 mOsm/kg (285-295) L 08/25/22 11:53 Lactic Acid 1.5 mmol/L (0.5-2.2) 08/25/22 11:53 Calcium 9.8 mg/dL (8.5-10.5) 08/25/22 11:53 Total Bilirubin 3.9 mg/dL (0.15-1.2) H 08/25/22 11:53 AST 27 U/L (0-32) 08/25/22 11:53 ALT 149 U/L (0-33) H 08/25/22 11:53 Alkaline Phosphatase 340 U/L (35-105) H 08/25/22 11:53 Total Protein 8.3 g/dL (6.6-8.7) 08/25/22 11:53 Albumin 4.0 g/dL (3.5-5.2) 08/25/22 11:53 Globulin 4.3 g/dL (1.3-4.6) 08/25/22 11:53 Lipase 13 U/L (13-60) 08/25/22 11:53 Urine Color Yellow (Yellow) 08/25/22 13:21 Urine Appearance Hazy (CLEAR) A 08/25/22 13:21 Urine pH 5 (5-7) 08/25/22 13:21 Ur Specific [place] 1.025 (1.005-1.030) 08/25/22 13:21 Urine Protein 1+ (Negative) H 08/25/22 13:21 Urine Glucose (UA) Norm (Normal) 08/25/22 13:21 Urine Ketones 1+ (Negative) H 08/25/22 13:21 Urine Blood Trace (Negative) H 08/25/22 13:21 Urine Nitrate Positive (Negative) H 08/25/22 13:21 Urine Bilirubin 2+ (Negative) H 08/25/22 13:21 Urine Urobilinogen 4+ mg/dL (Negative) H 08/25/22 13:21 Ur Leukocyte Esterase Negative (Negative) 08/25/22 13:21 Urine RBC 0-4 /hpf (0-2) H 08/25/22 13:21 Urine WBC 0-4 /hpf (0-5) H 08/25/22 13:21 Ur Squamous Epith Cells 10-15 /hpf (0-5) H 08/25/22 13:21 Calcium Oxalate Crystal 25-40 /hpf H 08/25/22 13:21 Amorphous Sediment Not Reportable 08/25/22 13:21 Urine Bacteria 1+ /hpf (NONE) H 08/25/22 13:21 Urine Mucus 1+ /hpf 08/25/22 13:21 Discharge Plan Discharge Patient Disposition: Xfer Short-Term Hosp Clinical Impression: Bile duct leak Condition: Stable Referrals: Metzger,MELY SandhuN [Primary Care Provider] - Coding Level of Care Code ED Mechanical Systems Designer for Chg Fwd Documented by User: Robe Amaro MD 08/25/22 19:21 HPI - Abdominal Pain General: Chief Complaint: Abdominal Pain Stated Complaint: abd pain/swelling Time Seen by Provider: 08/25/22 11:22 History of Present Illness: 42-year-old female history of cholecystectomy 5 days ago. States she been having increased abdominal pain throughout the day. She denies any known fevers she has had no vomiting she has had nausea she denies any worsening proving factors states pain is currently an 8 out of 10. PFSH ED PFSH: Medical History Cholelithiasis GERD (gastroesophageal reflux disease) Helicobacter pylori gastritis No pertinent past medical history Psychiatric care Surgical History History of 2011 History of esophagogastroduodenoscopy History of tubal ligation 2011 No history of previous surgery Family History Other Cancer Denies family history of Diabetes CAD (coronary artery disease) Dementia Chronic kidney disease (CKD) Anesthesia complication Bleeding disorder Lung disease Stroke Social History Smoking and tobacco status: never smoked Second hand smoke exposure: No Alcohol intake: former Caregiver/support person: Yes (spouse) Lives independently: Yes Household members: children Marital status: Legally service: No Current occupational status: unemployed Current gender identity: Female Special jaydon needs: No Course Vital Signs: Vital signs: Vital Signs Temperature 98.2 F 08/25/22 10:38 Pulse Rate 117 H 08/25/22 21:28 Respiratory Rate 16 08/25/22 21:25 Blood Pressure 116/72 08/25/22 21:28 Pulse Oximetry 95 08/25/22 21:28 Oxygen Delivery Me thod Room Air 08/25/22 21:28 MDM - Abdominal Pain Medical Decision Making Patient presents here with abdominal pain CT and HIDA scan show likely bile leak patient's been started on IV antibiotics here I did speak to GI at [place] will transfer there for high-level care for ERCP. Lab Data 08/25/22 11:53 08/25/22 11:53 Labs/Radiology: Radiology Impressions Abdomen/Pelvis CT 08/25/22 11:29 IMPRESSION: 1. Mildly dense fluid surrounding the liver extending along the RIGHT paracolic gutter into the pelvis. The amount of free fluid is more than expected for uncomplicated cholecystectomy. Consider hemoperitoneum, bile leak or mesenteric injury. HIDA scan may be helpful. 2. Additional increased fluid dissecting into the soft tissues of the muscles along the RIGHT lateral abdominal wall. May be postoperative bleeding. Phlegmonous infectious process should also be considered. 3. There is a tiny focus of free air towards the RIGHT diaphragm which would be appropriate for the recent surgery. 4. Urinary bladder is decompressed due to the peritoneal fluid extending into the pelvis. Notified Jorge Ryan DO at 08/25/2022 2:00 PM. Hepatobiliary Scan Nuclear Medicine 08/25/22 13:55 IMPRESSION: Findings suspicious for biliary leakage on nuclear medicine HIDA scan. There is activity appearing on the 30 minute image which increases over time along the inferior right hepatic lobe at the site of the collection on the comparison CT scan. Laboratory Results WBC 18.5 10^3/uL (4.0-10.0) H 08/25/22 11:53 RBC 5.60 10^6/uL (4.1-5.3) H 08/25/22 11:53 Hgb 16.3 g/dL (11.5-15.3) H 08/25/22 11:53 Hct 50.6 % (37.0-47.0) H 08/25/22 11:53 MCV 90.4 fl (81-99) 08/25/22 11:53 MCH 29.1 pg (28.0-34.0) 08/25/22 11:53 MCHC 32.2 g/dL (30.0-36.0) 08/25/22 11:53 RDW 14.1 % (12.1-15.1) 08/25/22 11:53 Plt Count 370 10^3/cmm (130-400) 08/25/22 11:53 MPV 10.3 fL (7.4-10.4) 08/25/22 11:53 Neut % (Auto) 82.4 % 08/25/22 11:53 Lymph % (Auto) 8.1 % 08/25/22 11:53 [place] % (Auto) 7.5 % 08/25/22 11:53 Eos % (Auto) 0.6 % 08/25/22 11:53 Baso % (Auto) 0.3 % 08/25/22 11:53 Neut # (Auto) 15.26 10^3/uL (1.8-7.7) H 08/25/22 11:53 Lymph # (Auto) 1.5 10^3/uL (0.8-4.8) 08/25/22 11:53 [place] # (Auto) 1.4 10^3/uL (0.2-0.9) H 08/25/22 11:53 Eos # (Auto) 0.1 10^3/uL (0.0-0.8) 08/25/22 11:53 Baso # (Auto) 0.1 10^3/uL (0.0-0.1) 08/25/22 11:53 Nucleated RBC % (auto) 0 % 08/25/22 11:53 Nucleated RBCs # 0.0 /100WBC 08/25/22 11:53 Sodium 129 mmol/L (136-145) L 08/25/22 11:53 Potassium 4.2 mmol/L (3.5-5.1) 08/25/22 11:53 Chloride 90 mmol/L (98-107) L 08/25/22 11:53 Carbon Dioxide 27 mmol/L (22-29) 08/25/22 11:53 Anion Gap 16.2 (5-19) 08/25/22 11:53 BUN 8 mg/dL (6-20) 08/25/22 11:53 Creatinine 0.6 mg/dL (0.5-0.9) 08/25/22 11:53 GFR Calculation 110.2 mL/min (90-130) 08/25/22 11:53 Glucose 122 mg/dL (65-115) H 08/25/22 11:53 Calculated Osmolality 268 mOsm/kg (285-295) L 08/25/22 11:53 Lactic Acid 1.5 mmol/L (0.5-2.2) 08/25/22 11:53 Calcium 9.8 mg/dL (8.5-10.5) 08/25/22 11:53 Total Bilirubin 3.9 mg/dL (0.15-1.2) H 08/25/22 11:53 AST 27 U/L (0-32) 08/25/22 11:53 ALT 149 U/L (0-33) H 08/25/22 11:53 Alkaline Phosphatase 340 U/L (35-105) H 08/25/22 11:53 Total Protein 8.3 g/dL (6.6-8.7) 08/25/22 11:53 Albumin 4.0 g/dL (3.5-5.2) 08/25/22 11:53 Globulin 4.3 g/dL (1.3-4.6) 08/25/22 11:53 Lipase 13 U/L (13-60) 08/25/22 11:53 Urine Color Yellow (Yellow) 08/25/22 13:21 Urine Appearance Hazy (CLEAR) A 08/25/22 13:21 Urine pH 5 (5-7) 08/25/22 13:21 Ur Specific [place] 1.025 (1.005-1.030) 08/25/22 13:21 Urine Protein 1+ (Negative) H 08/25/22 13:21 Urine Glucose (UA) Norm (Normal) 08/25/22 13:21 Urine Ketones 1+ (Negative) H 08/25/22 13:21 Urine Blood Trace (Negative) H 08/25/22 13:21 Urine Nitrate Positive (Negative) H 08/25/22 13:21 Urine Bilirubin 2+ (Negative) H 08/25/22 13:21 Urine Urobilinogen 4+ mg/dL (Negative) H 08/25/22 13:21 Ur Leukocyte Esterase Negative (Negative) 08/25/22 13:21 Urine RBC 0-4 /hpf (0-2) H 08/25/22 13:21 Urine WBC 0-4 /hpf (0-5) H 08/25/22 13:21 Ur Squamous Epith Cells 10-15 /hpf (0-5) H 08/25/22 13:21 Calcium Oxalate Crystal 25-40 /hpf H 08/25/22 13:21 Amorphous Sediment Not Reportable 08/25/22 13:21 Urine Bacteria 1+ /hpf (NONE) H 08/25/22 13:21 Urine Mucus 1+ /hpf 08/25/22 13:21 Discharge Plan Discharge Patient Disposition: Xfer Short-Term Hosp Clinical Impression: Bile duct leak Condition: Stable Referrals: Phoebe Metzger APN [Primary Care Provider] - Coding Level of Care Code ED Mechanical Systems Designer for [facility] [place]
--- NOTE | 2022-08-25 11:29 | CT_ITS ---
WS: [id number] CT ABDOMEN AND PELVIS NONCONTRAST HISTORY: Abdominal pain, recent cholecystectomy. Abdominal pain. TECHNIQUE: Imaging performed through the abdomen and pelvis. Coronal and sagittal reformats are submi tted. All CT scans at [facility] use at least one of these dose optimization techniques: auto mated exposure control; mA and/or kV adjustment per patient size (includes targeted exams where dose is matched to clinical indication); or iterative reconstruction. DLP: 684.03 mGy.cm COMPARISON: 08/16/2022 Lower thorax: Minimal subsegmental atelectasis at the RIGHT lung base. Normal size heart. Small hiata l hernia. Liver: Perihepatic fluid new since the prior study. Hounsfield units are only mildly elevated. No int rahepatic duct dilatation. Gallbladder: Cholecystectomy since 08/16/2022. There is a very small amount of fluid in the gallbladder fossa. Common bile duct is mildly prominent at 8 mm. No stone identified in the distal duct. Pancreas: Normal size and attenuation. Normal pancreatic duct. No pancreatitis or mass. Spleen: Normal. Adrenal glands: Normal. No mass. Right kidney: Normal size kidney with no mass or hydronephrosis. Left kidney: Normal size kidney with no mass or hydronephrosis. Aorta: Normal abdominal aorta, no aneurysm or atherosclerosis. Tiny focus of free air beneath the RIGHT diaphragm. There is a moderate amount of mildly dense fluid surrounding the liver and extending along the RIGHT paracolic gutter into the pelvis. Mesenteric garth a greatest along the RIGHT lateral abdomen. GI tract: Tiny focus of free air beneath the RIGHT diaphragm. Stomach is nondistended. There is marke d fecal retention. Fluid extending along the RIGHT paracolic gutter is inseparable from the RIGHT col onic wall. Abdominal wall: There is a collection interspersed between the RIGHT lateral abdominal wall muscles c onsistent with hematoma most likely. There is adjacent overlying subcutaneous soft tissue stranding. Small umbilical hernia contains fat. Pelvis: Moderate amount of free fluid in the pelvis is more than physiologic. Urinary bladder is bein g compressed posteriorly. Osseous structures: No destructive bone lesions. RIGHT femoral head bone island. CT/CT abdomen pelvis wo con [id number] IMPRESSION: 1. Mildly dense fluid surrounding the liver extending along the RIGHT paracoli c gutter into the pelvis. The amount of free fluid is more than expected for un complicated cholecystectomy. Consider hemoperitoneum, bile leak or mesenteric i njury. HIDA scan may be helpful. 2. Additional increased fluid dissecting into the soft tissues of the muscles along the RIGHT lateral abdominal wall. May be postoperative bleeding. Phlegmon ous infectious process should also be considered. 3. There is a tiny focus of free air towards the RIGHT diaphragm which would b e appropriate for the recent surgery. 4. Urinary bladder is decompressed due to the peritoneal fluid extending into the pelvis. Notified Jorge Ryan DO at 08/25/2022 2:00 PM.
[2022-08-25 11:58] LABS: Basophils # 0.1 10^3/uL (0.0-0.1); Basophils % 0.3 %; Eosinophils # 0.1 10^3/uL (0.0-0.8); Eosinophils % 0.6 %; Hematocrit 50.6 % (37.0-47.0); Hemoglobin 16.3 g/dL (11.5-15.3); Lymphocytes # 1.5 10^3/uL (0.8-4.8); Lymphocytes % 8.1 %; Mean Corpuscular HGB Conc 32.2 g/dL (30.0-36.0); Mean Corpuscular Hemoglobin 29.1 pg (28.0-34.0); Mean Corpuscular Volume 90.4 fl (81-99); Mean Platelet Volume 10.3 fL (7.4-10.4); Monocytes # 1.4 10^3/uL (0.2-0.9); Monocytes % 7.5 %; Neutrophils # 15.26 10^3/uL (1.8-7.7); Neutrophils % 82.4 %; Nucleated Red Blood Cells % 0 %; Platelet Count 370 10^3/cmm (130-400); Red Cell Distribution Width 14.1 % (12.1-15.1); White Blood Count 18.5 10^3/uL (4.0-10.0)
[2022-08-25] MEDS: sodium chloride 0.9% 1,000 ML 999 ML IV (12:16)
[2022-08-25] MEDS: ondansetron 2 mg/ML SDV 2 mL 4 MG IVP (12:18)
[2022-08-25] MEDS: morphine 4 mg/mL SDV 1 mL IVP ×2 (12:18→13:23)
[2022-08-25 12:19] LABS: Alanine Aminotransferase 149 U/L (0-33); Alkaline Phosphatase 340 U/L (35-105); Anion Gap 16.2 (5-19); Aspartate Amino Transferase 27 U/L (0-32); Blood Urea Nitrogen 8 mg/dL (6-20); Calcium 9.8 mg/dL (8.5-10.5); Carbon Dioxide 27 mmol/L (22-29); Chloride 90 mmol/L (98-107); Globulin 4.3 g/dL (1.3-4.6); Glomerular Filtration Rate 110.2 mL/min (90-130); Glucose 122 mg/dL (65-115); Osmolality Calculated 268 mOsm/kg (285-295); Potassium 4.2 mmol/L (3.5-5.1); Sodium 129 mmol/L (136-145); Total Bilirubin 3.9 mg/dL (0.15-1.2); Total Protein 8.3 g/dL (6.6-8.7)
[2022-08-25 13:43] LABS: Lipase 13 U/L (13-60)
--- NOTE | 2022-08-25 13:55 | NMR_ITS ---
PROCEDURE INFORMATION: Exam: NM Hepatobiliary Including Gallbladder When Present Exam date and time: 08/25/2022 1:55 PM Age: 42 years old Clinical indication: Right upper quadrant pain; Pain and abnormal findings; Abnormal radiologic findings, biliary tract and abnormal liver function studies and abnormal pancreatic enzymes (lipase, amylase, protease); Ruq pain; Prior surgery; Surgery date: 3-7 days post-operative; Surgery type: Cholecystectomy; Additional info: Bile leak TECHNIQUE: Imaging protocol: Hepatobiliary system imaging including the gallbladder when present. Projections: Frontal abdomen. Radiopharmaceutical: 7.6 mCI Tc-99m Mebrofenin (Choletec, Bromotriethyl-ALESHA), IV. Time of imaging post radiopharmaceutical administration: 60 minutes following radiopharmaceutical. COMPARISON: [place] hepatobiliary w phar* [id number] 02/26/2020 8:00 AM FINDINGS: Liver: On the 30 minute image there is activity along the inferior surface of the right hepatic lobe correlating with a collection of fluid on the CT scan which increases over time and does not appear to be intraluminal. This is suspicious for biliary leakage. Gallbladder: Cholecystectomy postoperative changes are again seen. Bile ducts: Activity in the common bile duct is normal. No common bile duct obstruction. Stomach and bowel: Normal small bowel activity. NM/NM hepatobiliary wo phar [id number] IMPRESSION: Findings suspicious for biliary leakage on nuclear medicine HIDA scan. There is activity appearing on the 30 minute image which increases over time along the inferior right hepatic lobe at the site of the collection on the comparison CT scan.
[2022-08-25 14:03] LABS: Lactic Sepsis W/Reflex 1.5 mmol/L (0.5-2.2)
[2022-08-25 14:19] LABS: Urine Appearance Hazy (CLEAR); Urine Color Yellow (Yellow); pH Urine 5 (5-7)
[2022-08-25 14:20] LABS: Add Urine Microscopic? YES; Bilirubin Urine 2+ (Negative); Blood Urine Trace (Negative); Glucose Urine UA Norm (Normal); Ketones Urine 1+ (Negative); Leukocyte Esterase Urine Negative (Negative); Nitrate Urine Positive (Negative); Protein Urine 1+ (Negative); Specific Gravity, Urine 1.025 (1.005-1.030); Urobilinogen Urine 4+ mg/dL (Negative)
[2022-08-25 14:22] LABS: RBC Urine 0-4 /hpf (0-2); WBC Urine 0-4 /hpf (0-5)
[2022-08-25 14:23] LABS: Bacteria Urine 1+ /hpf; Mucus Urine 1+ /hpf
[2022-08-25 14:24] LABS: Calcium Oxalate Crystals Urine 25-40 /hpf
[2022-08-25] MEDS: piperacillin-tazobactam 3.375 GM in sodium chloride 0.9% (plus) 50 ML IV (14:27)
[2022-08-25] MEDS: HYDROmorphone 1 mg/mL INJ 1 mL 0.5 MG IVP ×2 (14:27→16:31)
[2022-08-25] MEDS: sodium chloride 0.9% 2,231.67 ML 2231.67 ML IV (15:22)
[2022-08-25] MEDS: HYDROmorphone 1 mg/mL INJ 1 mL IVP ×2 (18:56→21:25)
--- NOTE | 2022-08-25 21:30 | PC.NURSE ---
report given to Elder site planner
== END 2022-08-25 21:36 | disposition short-term general hospital (02) ==
PROVIDERS: Family Medicine; Emergency Provider Emergency Medicine; PCP Nurse Practitioner Family
DX: K83.8 Other specified diseases of biliary tract (principal)
CPT/HCPCS: 36415; 74176; 78226; 80053; 81001; 83605; 83690; 85025; 87040; 96361; 96365; 96375; 96376; 99285; A9537; J1170; J2270; J2405; J2543; J7030

== ENCOUNTER → 2022-09-11 11:13 | Outpatient (BNVA) | payer MEDICAID, SELFPAY | PROVIDERS: PCP Nurse Practitioner Family; Visit Provider Nurse Practitioner Family | DX: F15.20 Other stimulant dependence, uncomplicated (principal) | CPT/HCPCS: 80053; 82607; 84443; 85025; 86803; 87806 ==

== ENCOUNTER → 2022-11-25 11:45 | Outpatient (BNVA) | payer MEDICAID, SELFPAY | PROVIDERS: PCP Nurse Practitioner Family; Visit Provider Nurse Practitioner Family | DX: R30.0 Dysuria (principal) | CPT/HCPCS: 81003; 87491; 87591; 87661 ==

== ENCOUNTER → 2023-01-06 16:03 | Outpatient (BNVA) | payer MEDICAID, SELFPAY | PROVIDERS: PCP Nurse Practitioner Family; Visit Provider Nurse Practitioner Family | DX: R39.9 Unspecified symptoms and signs involving the genitourinary system (principal); L65.9 Nonscarring hair loss, unspecified | CPT/HCPCS: 81003; 84439; 84443; 86376 ==

== ENCOUNTER 2023-05-21 19:16 | Emergency (ER) | payer MEDICAID, SELFPAY ==
[2023-05-21 19:25] VITALS: BP 108/86; PULSE 115; RESP 22; TEMP 36.6; O2SAT 100
[2023-05-21 19:46] VITALS: PULSE 104; RESP 20; O2SAT 100
--- NOTE | 2023-05-21 19:46 | XRR_ITS ---
PROCEDURE INFORMATION: Exam: XR Right Hand Exam date and time: 05/21/2023 7:55 PM Age: 43 years old Clinical indication: Pain; Hand; Right; Additional info: Pain, swelling, redness, pain with rom (suspect infiltrated iv TECHNIQUE: Imaging protocol: Radiologic exam of the right hand. Views: 3 or more views. COMPARISON: No relevant prior studies available. FINDINGS: Bones/joints: No acute fracture or malalignment. Soft tissues: Mild diffuse soft tissue swelling. XR/XR hand RT min 3V* [id number] IMPRESSION: No acute findings.
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
[2023-05-21] MEDS: LORazepam 2 mg Tablet PO (20:25)
[2023-05-21 20:28] VITALS: PULSE 102; RESP 20; O2SAT 99
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
[2023-05-22] MEDS: LORazepam 2 mg/mL INJ 10 mL MDV IM (00:16)
[2023-05-22] MEDS: ziprasidone 20 mg/mL SDV IM (00:17)
[2023-05-22 00:19] VITALS: BP 119/56; PULSE 101; RESP 16; O2SAT 95
[2023-05-22 03:25] LABS: Basophils % 0.3 %; Eosinophils # 0.1 10^3/uL (0.0-0.8); Eosinophils % 1.1 %; Hematocrit 43.7 % (36-47); Lymphocytes % 17.1 %; Mean Corpuscular HGB Conc 34.1 g/dL (30-55); Mean Corpuscular Volume 85.2 fl (85-98); Mean Platelet Volume 9.9 fL (7.4-10.4); Monocytes # 0.8 10^3/uL (0.2-0.9); Monocytes % 6.6 %; Neutrophils # 8.64 10^3/uL (1.8-7.7); Neutrophils % 74.5 %; Nucleated Red Blood Cells % 0 %; Platelet Count 331 10^3/cmm (157-399); Red Blood Count 5.13 10^6/uL (3.85-5.65); Red Cell Distribution Width 13.2 % (12.1-15.1); White Blood Count 11.61 10^3/uL (3.29-11.43)
[2023-05-22 03:42] LABS: Alanine Aminotransferase 10 U/L (0-33); Albumin Level 3.9 g/dL (3.5-5.2); Alkaline Phosphatase 77 U/L (35-105); Anion Gap 15.8 (5-19); Aspartate Amino Transferase 10 U/L (0-32); Blood Urea Nitrogen 12 mg/dL (6-20); Calcium 9.3 mg/dL (8.5-10.5); Carbon Dioxide 21 mmol/L (22-29); Chloride 99 mmol/L (98-107); Globulin 3.8 g/dL (1.3-4.6); Glomerular Filtration Rate 109.6 mL/min (90-130); Glucose 105 mg/dL (65-115); Osmolality Calculated 274 mOsm/kg (285-295); Potassium 3.8 mmol/L (3.5-5.1); Sodium 132 mmol/L (136-145); Total Bilirubin 0.9 mg/dL (0.15-1.2); Total Protein 7.7 g/dL (6.6-8.7)
[2023-05-22 03:52] VITALS: BP 92/51; PULSE 96; RESP 14; O2SAT 99
[2023-05-22 05:22] VITALS: BP 93/61; PULSE 94; RESP 16; O2SAT 99
[2023-05-22 06:00] VITALS: BP 112/56; PULSE 96; RESP 16; O2SAT 100
[2023-05-22 08:00] VITALS: BP 112/70; PULSE 90; RESP 16; O2SAT 98
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
[2023-05-22 10:00] VITALS: BP 120/59; PULSE 89; RESP 16; O2SAT 95
--- NOTE | 2023-05-22 11:10 | CTR_ITS ---
PROCEDURE INFORMATION: Exam: CT Pelvis Without Contrast Exam date and time: 05/22/2023 11:19 AM Age: 43 years old Clinical indication: Rectal pain; Prior surgery; Surgery date: 6+ months; Surgery type: Tubal, c section; Additional info: Rectal pain TECHNIQUE: Imaging protocol: Computed tomography of the pelvis without contrast. Radiation optimization: All CT scans at this facility use at least one of these dose optimization techniques: automated exposure control; mA and/or kV adjustment per patient size (includes targeted exams where dose is matched to clinical indication); or iterative reconstruction. COMPARISON: CT abdomen pelvis wo con [id number] 08/25/2022 1:25 PM RADIATION DOSE METRICS: Total DLP (mGy-cm): 276.3 FINDINGS: Images through the pelvis demonstrate no evidence of bowel obstruction. No obvious pathologic adnexal mass identified. Uterus appears similar size to previous exam on 08/25/2022. Partially distended urinary bladder has smooth contour. No definite new abnormality within the pelvis compared to the prior study. Please note that assessment for perianal fistula could be more reliably obtained with contrast-enhanced exam and/or MRI. Presumed bone islands right femoral head and right ischium. CT/CT pelvis wo con [id number] IMPRESSION: No obvious acute abnormality identified within the pelvis. Please see above comments.
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
[2023-05-22 11:57] LABS: Basophils % 0.2 %; Eosinophils # 0.1 10^3/uL (0.0-0.8); Eosinophils % 1.3 %; Hematocrit 45.5 % (36-47); Lymphocytes # 2.4 10^3/uL (0.8-4.8); Lymphocytes % 25.2 %; Mean Corpuscular HGB Conc 32.7 g/dL (30-55); Mean Corpuscular Hemoglobin 29.3 pg (27-33); Mean Corpuscular Volume 89.4 fl (85-98); Mean Platelet Volume 9.9 fL (7.4-10.4); Monocytes # 0.8 10^3/uL (0.2-0.9); Monocytes % 8.7 %; Neutrophils # 6.18 10^3/uL (1.8-7.7); Nucleated Red Blood Cells % 0 %; Platelet Count 252 10^3/cmm (157-399); Red Blood Count 5.09 10^6/uL (3.85-5.65); Red Cell Distribution Width 13.5 % (12.1-15.1); White Blood Count 9.67 10^3/uL (3.29-11.43)
[2023-05-22 12:27] LABS: Alanine Aminotransferase 10 U/L (0-33); Albumin Level 3.7 g/dL (3.5-5.2); Alkaline Phosphatase 78 U/L (35-105); Blood Urea Nitrogen 12 mg/dL (6-20); Calcium 9.4 mg/dL (8.5-10.5); Carbon Dioxide 17 mmol/L (22-29); Chloride 100 mmol/L (98-107); Creatinine Clr Calc Pharmacy 149.5004; Glomerular Filtration Rate 135.3 mL/min (90-130); Glucose 85 mg/dL (65-115); Osmolality Calculated 271 mOsm/kg (285-295); Sodium 131 mmol/L (136-145); Total Bilirubin 0.8 mg/dL (0.15-1.2); Total Protein 7.7 g/dL (6.6-8.7)
[2023-05-22 12:30] LABS: Anion Gap 17.8 (5-19); Aspartate Amino Transferase 13 U/L (0-32); Potassium 3.8 mmol/L (3.5-5.1)
[2023-05-22] MEDS: acetaminophen 500 mg Tablet 1000 MG PO (13:06)
== END 2023-05-22 13:48 | disposition home or self-care (01) ==
PROVIDERS: Physician Assistant; Emergency Provider Family Medicine; PCP Nurse Practitioner Family
DX: K62.89 Other specified diseases of anus and rectum (principal); K64.9 Unspecified hemorrhoids; L03.012 Cellulitis of left finger; F15.90 Other stimulant use, unspecified, uncomplicated; E87.1 Hypo-osmolality and hyponatremia
CPT/HCPCS: 36415; 70450; 72192; 73130; 80053; 85025; 96372; 99285; J2060; J3486

== ENCOUNTER → 2023-05-28 10:31 | Outpatient (BNVA) | payer MEDICAID, SELFPAY | PROVIDERS: PCP Nurse Practitioner Family; Visit Provider Nurse Practitioner Family | DX: M79.641 Pain in right hand (principal); L03.113 Cellulitis of right upper limb; N89.8 Other specified noninflammatory disorders of vagina | CPT/HCPCS: 73130; 81003; 87491; 87591 ==

== ENCOUNTER → 2024-08-07 13:57 | Outpatient (BNVA) | payer MEDICAID, SELFPAY | PROVIDERS: PCP Nurse Practitioner Family; Visit Provider Nurse Practitioner Family | DX: M25.511 Pain in right shoulder (principal); M19.011 Primary osteoarthritis, right shoulder; M25.711 Osteophyte, right shoulder | CPT/HCPCS: 73030 ==

== ENCOUNTER 2024-08-08 05:00 | Outpatient (RCR) | payer MEDICAID, SELFPAY | END 2024-09-06 23:59 | disposition home or self-care (01) | LOC: TPT 05:00 | PROVIDERS: PCP Nurse Practitioner Family; Visit Provider Nurse Practitioner Family | DX: M25.519 Pain in unspecified shoulder (principal); G89.29 Other chronic pain | CPT/HCPCS: 97110; 97162 ==

== ENCOUNTER 2024-08-30 11:25 | Outpatient (CLI) | payer MEDICAID, SELFPAY ==
--- NOTE | 2024-08-30 12:10 | XR_ITS ---
WS: [id number] Exam: XR cervical spine 3V* [id number] Date/Time of Exam: 08/30/2024 12:24 PM Reason For Exam: M54.2 - Cervicalgia No acute fracture. C7 is not completely visualized on the lateral view. Disc bases are preserved. There is straightening. Posterior elements are intact. The dens appears normal. Unremarkable paraspinal soft tissues. XR/XR cervical spine 3V* [id number] IMPRESSION: 1. Straightening. No fracture or malalignment. 2. Most of C7 is not visualized in the lateral view.
== END 2024-08-30 11:26 | disposition home or self-care (01) ==
PROVIDERS: PCP Nurse Practitioner Family; Visit Provider Nurse Practitioner Family
DX: M54.2 Cervicalgia (principal)
CPT/HCPCS: 72040

== ENCOUNTER 2024-09-07 05:00 | Outpatient (RCR) | payer MEDICAID, SELFPAY | END 2024-10-07 23:59 | disposition home or self-care (01) | LOC: TPT 05:00 | PROVIDERS: PCP Nurse Practitioner Family; Visit Provider Nurse Practitioner Family | DX: M25.511 Pain in right shoulder (principal); G89.29 Other chronic pain | CPT/HCPCS: 97110 ==

== ENCOUNTER 2024-10-17 20:00 | Outpatient (CLI) | payer MEDICAID, SELFPAY | END 2024-10-17 20:01 | disposition home or self-care (01) | LOC: SLEEP 10-18 04:51 | PROVIDERS: PCP Nurse Practitioner Family; Visit Provider Nurse Practitioner Family | DX: R06.83 Snoring (principal); G47.10 Hypersomnia, unspecified | CPT/HCPCS: 95810 ==

== ENCOUNTER 2025-01-03 10:38 | Outpatient (CLI) | payer MEDICAID, SELFPAY ==
--- NOTE | 2025-01-03 10:48 | XR_ITS ---
WS: [id number] Exam: XR KUB [id number] Date/Time of Exam: 01/03/2025 10:48 AM Reason For Exam: ACUTE CYSTITIS WITH HEMATURIA Comparison 04/07/2017. No bowel obstruction or pneumoperitoneum. Signs of prior cholecystectomy. No sign of organ enlargement. Unchanged small LEFT pelvic calcifications. Bony structures are intact. Moderate amount retained stool in the colon. XR/XR KUB [id number] IMPRESSION: 1. No acute abdominal finding.
== END 2025-01-03 10:39 | disposition home or self-care (01) ==
LOC: RAD 10:44
PROVIDERS: PCP Nurse Practitioner Family; Visit Provider Nurse Practitioner Family
DX: N30.01 Acute cystitis with hematuria (principal)
CPT/HCPCS: 74018

== ENCOUNTER 2025-02-22 17:46 | Emergency (ER) | payer MEDICAID, SELFPAY ==
--- OUTSIDE RECORDS SUMMARY | 2024-10-24 02:00 | XMS_ITS ---
Author Organization [facility] Address [address] [place] [address] Care Team Providers Care Media Aid Name Role Phone Deb Metzger Primary Care Provider [phone] Monik Prakash [phone] DEB METZGER Unavailable REASON FOR VISIT EARS NOT ANY BETTER Encounters Encounter Location Date Provider Diagnosis [facility] Office [address] [id number] 10/24/2024 Monik Prakash Plan Of Treatment No Information Progress Notes * Olga OLEARY LDOB:[birth year] (45 yo F)Acc No.[id number]:10/24/2024 Progress Notes Patient: Keke Roblesha Aniyah Provider: Aniyah Prakash APRN :1980 A ge:44 Y S ex:Female Date:10/24/2024 Address:[address] [id number] Pcp:Deb Metzger Subjective: * Chief Complaints: * E ARS NOT ANY BETTER Plan: * Preventive Medicine: Screenings: B REAST CANCER SCREENING: Date of most recent screenin 022 C ERVICAL CANCER SCREENING: Date of the last PAP Smear : 2 022, Normal D EPRESSION SCREENING: Date of most recent screenin 08/10/2024 The patient denies: a nxiety, depressed mood, difficulty sleeping, lack of energy, lack of interest in things that were enjoyable, poor appetite, sadness, thoughts of harming him/herself, thought of harming someone else, trouble concentrating, weight gain, weight loss, any depressive symptoms at this time PHQ inventory: w ith score of 0-4 V ACCINATIONS: Completed vaccinations include: C ovid, Has never been done Influenza vaccinations: i s rarely done Refuses Billing Information: * Procedure Codes: Care Plan Details* * Electronic signature of Gómez Prakash APN on 02/22/2025 at 05:52 PM CDT Sign off status: Pending * Provider: Aniyah Prakash APRN Date: 0 10/24/2024 Generated for Elise marina/Chloe/Kathya on: 1 05:52 PM CDT
--- OUTSIDE RECORDS SUMMARY | 2024-10-25 03:00 | XMS_ITS ---
Author Organization [facility] Address [address] [place] [address] Care Team Providers Care Mechanical Research Engineer Name Role Phone Deb Metzger Primary Care Provider Monik Prakash [phone] DEB METZGER Unavailable REASON FOR VISIT 1 wk f/u Encounters Encounter Location Date Provider Diagnosis [facility] Office [address] [id number] 10/25/2024 Monik Prakash Plan Of Treatment No Information Progress Notes * Olga OLEARY LDOB:[birth year] (45 yo F)Acc No.[id number]:10/25/2024 Progress Notes Patient: Fernando beaulieu Olga Aniyah Provider: Aniyah Prakash APRN :1980 A ge:44 Y S ex:Female Date:10/25/2024 Address:[address] [place] [address] [id number] Pcp:Deb Metzger Subjective: * Chief Complaints: * 1 wk f/u Care Plan Details* * Electronic signature of Gómez Prakash APN on 02/22/2025 at 05:52 PM CDT Sign off status: Pending * Provider: Aniyah Prakash APRN Date: 0 10/25/2024 Generated for Printi ng/Faxing/eTransmitting on: 1 05:52 PM CDT
[2025-02-22 17:49] VITALS: BP 119/72; PULSE 87; RESP 18; TEMP 36.4; O2SAT 98
--- OUTSIDE RECORDS SUMMARY | 2025-02-22 17:53 | XMS_ITS | Patient Health Record ---
Author Organization [facility] Address [address] [place] [address] Care Team Providers Care Vp Publisher Development Name Role Phone YassineDeb Primary Care Provider [phone] Olinda Monik Unavailable [phone] BOTELLODEB Unavailable Unavailable Allergies No Known Allergies Results Component Value Reference Range Flag Notes T3 Free [id number] Reviewed date:12/21/2024 04:20:38 PM Interpretation: Performing Lab: Notes/Report: Diagnosis Description: Encounter for screening for other suspected endocrine disorder Free T3 3.6 2.3-4.2 pg/mL T4 [id number] Reviewed date:12/21/2024 04:20:31 PM Interpretation: Performing Lab: Notes/Report: Diagnosis Description: Encounter for screening for other suspected endocrine disorder Free T4 1.34 0.89-1.76 NG/DL Thyroid Stimulating Hormone (TSH) 47274 Reviewed date:12/21/2024 04:20:18 PM Interpretation: Performing Lab: Notes/Report: Diagnosis Description: Encounter for screening for other suspected endocrine disorder TSH 2.046 .358-3.740 MlU/ML Lipid Panel Reflex DLDL 8006 1, 90442 Reviewed date:12/21/2024 04:20:48 PM Interpretation: Performing Lab: Notes/Report: Diagnosis Description: Encounter for screening for lipoid disorders Trig 155 NA Children: Female 5-9 yr 30-101 Adults: >20yrs 10-14 yr 32-125 Children: Male High 200-499 0-4 yr 34-112 Desirable <150 Very high >=500 10-14 yr 37-131 0-4 yr 22-99 5-9 yr 32-105 15-19 yr 37-148 15-19 yr 39-132 Classification Guidelines:Triglycerides Borderline High 150-199 Chol 180 <=200 MG/DL HDL 44 39-96 MG/DL 5-9y 36-73 >=20y 40-59 Reference Ranges:HDL 10-14y 37-74 10-14y 37-70 Male: 15-19y 30-63 Female: 15-19y 35-74 >=20y 40-59 5-9y 38-75 CH/HDL 4.1 0.0-4.9 RATIO LDL 105 0-130 MG/DL LDL result is inaccurate , if Trig is >400 mg/dl. See DLDL result. Hemoglobin A1c 32546 Reviewed date:12/21/2024 04:20:12 PM Interpretation: Performing Lab: Notes/Report: Diagnosis Description: Encounter for screening for diabetes mellitus Hgb A1c 5.5 3.8-6.4 % Interpretation Of Hgb A1c: 4.5-6.2 % nondiabetics. >7.0 % diabetics. EAG 111 NA Estimated Aver age Glucose(EAG). Comprehensive Metabolic Pane l (CMP) 12039 Reviewed date:12/21/2024 04:20:25 PM Interpretation: Performing Lab: Notes/Report: Diagnosis Description: Acute cystitis with hematuria Glucose Serum 80 71-110 MG/DL Testing p erformed at [facility], [address] [place] [address] [place] [address]. CLIA ID#: [id number] BUN 13 7-21 MG/DL Creat .67 .51-1.17 MG/DL A-ufcxru-z-benzoquinone imine (NAPQI) is a metabolite of acetaminophen, NAPQI concentrations of apparoximately 10 mg/L correlation to toxic levels of acetaminophen demonstrates a greater than or equil to 10% change in results. NAPQI concentrations greater than this may lead to falsely depressed results for patient samples. Use of this assay is not recommended for patients undergoing treatment with phenindione, due to the potential for falsely depressed results. GFR 110.4 NA Calculation pe rformed from GFR calculator provided by the [employer]. Glomerular Filtration rate(GRF) is the best overall index of kidney function. Normal GFR varies according to age,sex, body size, and declines with age. The National [employer] recommends using the CKD-EPI Creatinine Equation(2020) to estimate GFR. BUN/Creat Ratio 19.4 12.0-20.0 % Total Protein 7.7 5.8-8.0 G/DL Albumin 4.9 3.2-4.8 G/DL HI Globulin 2.8 2.3-3.5 G/DL Alb/Glob 1.8 0.8-2.2 Calcium 9.4 8.7-10.4 MG/DL Sodium 136 136-145 MMOL/L Potassium 3.8 3.5-5.1 MMOL/L Chloride 104 98-107 MMOL/L CO2 22.9 20.0-31.0 MMOL/L Anion Gap 13 5-15 Alk Phos 76 46-116 Bili Total .7 .3-1.2 MG/DL Use of this assay is not recommended for patients undergoing treatment with eltrombopag due to the potential for falsely elevated results. AST/SGOT 18 15-37 UNIT/L ALT/SGPT 14 12-78 UNIT/L Osmo Serum,Calculated 281 280-300 MOSM/KG CBC w\ Auto Diff 20520 Reviewed date:12/21/2024 04:20:05 PM Interpretation: Performing Lab: Notes/Report: Diagnosis Description: Acute cystitis with hematuria WBC 7.4 4.5-11.0 X10'3 RBC 4.99 4.00-5.20 X10'6 Hgb 14.1 12.0-16.0 G/DL Hct 44.2 36.0-46.0 % MCV 88.6 80.0-100.0 FL MCH 28.3 27.0-31.0 PG MCHC 31.9 31.0-37.0 G/DL Platelet 276 150-400 X10'3 RDW-SD 45.0 35.0-49.0 FL RDW-CV 14.0 12.2-15.6 % MPV 11.8 9.2-12.0 FL Neutro Auto% 61.6 40.0-70.0 % Lymph Auto% 31.4 22.0-44.0 % Comal Auto% 5.1 3.0-7.0 % Eos Auto% 1.1 2.0-4.0 % LOW Baso Auto% 0.4 0.0-1.0 % Imm Gran% .4 .0-.4 % Neutro Abs 4.56 .80-7.70 Absolute Neutrophil Count 4560 NA Lymph Abs 2.32 .10-4.10 Comal Abs .38 .20-1.00 Eos Abs .08 .00-.40 Baso Abs .03 .00-.20 Imm Gran Abs .03 .00-.10 NRBC# .00 .00-.20 X10'3 NRBC% .00 .00-.20 /100 int act WBC's UA Without Micro-Auto, [place] - [id number] Reviewed date:12/20/2024 03:22:54 PM Interpretation: Performing Lab: Notes/Report: Color yellow Clarity clear Glucose negative Bili negative Ketones negative Sp G[place] 1.010 Blood 2+ pH 6.5 Protein negative Urobili negative Nitrites negative Leukocytes negative Reason For Referral Reason Otitis media of righ t ear Diagnosis 1 Acute otitis media w ith effusion of right ear (H65.191) Referral Organization [facility] Referring Provider First Name Monik Referring Provider Last Name [facility] Referring Provider Speciality Nurse Prac leigh Referred Provider José Willams Referred Provider Specialty Ear, nose an d throat surgeon Referral Priority Routine Referral Appointment Date 10/30/2024 Reason callus of heel Diagnosis 1 Callus of heel (L84) Referral Organization [facility] Referring Provider First Name Monik Referring Provider Last Name [facility] Referring Provider Speciality Nurse Prac eunicer Referred Provider Earnest Herring Referred Provider Specialty Podiatry - S urgical Chiropody General Notes Yolanda Bello 01/10 09:04:12 AM CDT > faxed Referral Priority Routine Medications Medication SIG (Take, Route, Frequency, Duration) Notes Start Date End Date Status buPROPion HCl ER (XL) 150 MG Tablet Extended Release 24 Hour TAKE ONE TABLET BY MOUTH EVERY MORNING Oral; Duration: 30 Days Not-Taki ng Pantoprazole Sodium 40 MG Tablet Delayed Release TAKE 1 TABLET BY MOUTH EVERY DAY Oral; Duration: 30 Days Not-Taking Ketorolac Tromethamine 10 MG Tablet TAKE 1 TABLET BY MOUTH THREE TIMES DAILY NEEDED FOR PAIN Oral; Duration: 4 Days Not-Taking Methocarbamol 750 MG Tablet TAKE 1 TABLET BY MOUTH THREE TIMES DAILY Oral; Duration: 4 Days Not-Taking Citalopram Hydrobromide 20 MG Tablet TAKE 1 TABLET BY MOUTH ONCE DAILY Oral; Duration: 30 Days Not-Taking Ondansetron HCl 4 MG Tablet TAKE 1 TABLET BY MOUTH EVERY 8 HOURS Oral; Duration: 7 Days Not-Taking Lansoprazole 30 MG Capsule Delayed Release TAKE 1 CAPSULE BY MOUTH TWICE DAILY Oral; Duration: 30 Days Not-Taking Naproxen 500 MG Tablet TAKE 1 TABLET BY MOUTH TWICE DAILY NEEDED FOR PAIN Oral; Duration: 30 Days Not-Taking HYDROcodone-Acetaminoph en 5-325 MG Tablet Oral; Duration: 3 Days Not-Taking Azithromycin 500 MG Tablet 2 tabs Orally today; Duration: 1 day Not-Taking SUMAtriptan Succinate 100 MG Tablet TAKE 1 TABLET BY MOUTH AT ONSET OF HEADACHE IF NO RELIEF, MAY REPEAT 1 TABLET AFTER AT LEAST 2 HOURS (MAX 2 TABLETS/24HOURS Oral; Duration: 30 Days Not-Taking Amoxicillin-Pot Clavulanate 875-125 MG Tablet TAKE 1 TABLET BY MOUTH TWICE DAILY FOR 10 DAYS Oral; Duration: 10 Days Not-Taki ng Ciprofloxacin HCl 500 MG Tablet TAKE 1 TABLET BY MOUTH EVERY 12 HOURS FOR 7 DAYS Oral; Duration: 7 Days Not-Taking Fluconazole 150 MG Tablet TAKE 1 TABLET BY MOUTH EVERY 3 DAYS FOR 2 DOSES, REPEAT IN 72 HOURS IF STILL SYMPTOMATIC Oral; Duration: 3 Days Not-Taking busPIRone HCl 10 MG Tablet TAKE ONE TABLET BY MOUTH THREE TIMES DAILY Oral; Duration: 30 Days Not-Taki ng CeleXA 20 MG Tablet 1 tablet Orally Once a day; Duration: 30 day(s) Not-Taking metroNIDAZOLE 500 MG Tablet 1 tablet Orally Twice a day; Duration: 7 days Not-Taking Naltrexone HCl 50 MG Tablet TAKE ONE TABLET BY MOUTH DAILY Oral; Duration: 30 Days Not-Taking hydrOXYzine HCl 25 MG Tablet 1 tab Orally every 6 hrs prn anxiety; Duration: 30 days Not-Taking Azithromycin 250 MG Tablet 2 tablet on the first day, then 1 tablet daily for 4 days Orally Once a day; Duration: 5 days Not-Taking Ozempic (0.25 or 0.5 MG/DOSE) 2 MG/1.5ML Solution Pen-injector IN 0.25 (0.2ML) SUBCUTANEOUSLY WEEKLY FOR FOUR WEEKS; THEN INCREASE TO 0.5MG FOR FOUR WEEKS THEN WILL NEED AN APPOINTMENT. Subcutaneous; Duration: 28 Days Not-Taking Topiramate 100 MG Tablet 1 tablet Orally twice a day; Duration: 30 days 12/21/2024 Active risperiDONE 0.5 MG Tablet 1 tablet Oral Once a day at bedtime; Duration: 30 days Not-Taking FLUoxetine HCl 20 MG/5ML Solution 10 ml Oral once a day; Duration: 30 days Not-Taking Venlafaxine HCl ER 75 MG Capsule Extended Release 24 Hour TAKE ONE CAPSULE BY MOUTH DAILY Oral; Duration: 30 Days Not-Taking Pseudoephedrine-guaiFEN esin ER 120-1200 MG Tablet Extended Release 12 Hour 1 tablet Orally every 12 hrs 10/18/2024 Active Sucralfate 1 GM/10ML Suspension TAKE 10 MLS BY MOUTH TWICE DAILY Oral; Duration: 4 Days Not-Taking diazePAM 5 MG Tablet TAKE 1 TO 2 TABLETS BY MOUTH DAILY NEEDED FOR panic attacks Oral; Duration: 5 Days Not-Taking Diclofenac Sodium 75 MG Tablet Delayed Release 1 tab Orally Twice a day pc prn inflammatory pain; Duration: 30 08/10/2024 03/08/2025 Active Omeprazole 40 MG Capsule Delayed Release TAKE 1 CAPSULE BY MOUTH ONCE DAILY BEFORE A MEAL Oral; Duration: 30 Days Active Immunizations Vaccine Route Administration Date Status Comme nts Flucelvax Trivalent, Syringe 0.5 mL, PF Unknown 025 Refused Social History Tobacco Use: Social History Observation Description Date Details (start date - stop date) Never Smoker NA - NA Social History Depression Screening Social Info Question Answer Notes depression screening findings Findings Negative (0 -4) PHQ-9 Little interest or p alec in doing things Not at all Feeling down, depressed, or hopeless Not at all Trouble falling or staying asleep, or sleeping t oo much Not at all Feeling tired or having little energy Not at all Poor appetite or overeating Not at all Feeling bad about yourself, or that you are a failure, or have let yourself or your family down Not at all Trouble concentrating on thi ngs, such as reading the newspaper or watching television Not at all Moving or speaking so slowly that other people could have noticed. Or the opposite ? being so fidgety or restless that you have been moving around a lot more than usual Not at all Thoughts that you would be b cub[place] off , or of hurting yourself in some way Not at all Total Score 0 Drugs/Alcohol: Social Info Question Answer Notes Alcohol Screen (Audit-C) Did you have a drink containing alcohol in the past year? Yes How often did you have a drink containing alcohol in the past year? Monthly or less (1 point) How many drinks did you have on a typical day when you were drinking in the past year? 1 or 2 drinks (0 point) How often did you have 6 or more drinks on one occasion in the past year? Never (0 point) Points 1 Interpretation Negative Drugs Have you used drugs other than those for medical reasons in the past 12 months? Yes meth, other(unsure of) Tobacco Use: Social Info Question Answer Notes xTobacco Use/Smoking Are you a nonsmoker Additional Details Category Social Info Options Details Drugs/Alcohol: Do you smoke marijuana? De nies Do you drink alcohol? Yes, seldo m Section Notes: 09/25/2022 PHQ-9 phq9 08/10/2024 phq9 08/10/2024 phq9 08/10/2024 phq9 08/10/2024 phq9 08/10/2024 phq9 08/10/2024 Problems Problem Type SNOMED Code ICD Code Onset Dates Problem Status W/U Status Risk Notes Problem Anxiety (05364896) Anxiety (F41.9) Active confirmed Problem Obesity (403908450) Obesity (BMI 30-39.9) (E66.9) Active confirmed Problem Cystitis (10980068) Cystitis (N30.90) Active confirmed Problem High risk sexual behavior (687041508) Unprotected sex (Z72.51) Active confirmed Problem Encounter for removal of biliary stent (Z46.89) Active confirmed Problem 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) Active confirmed Problem 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 Depression screen Z13.31 ; Encounter for immunization Z23 ; Immunization not carried out because of patient refusal Z28.21 ; Hip pain M25.559 ; Obesity (BMI 30-39.9) E66.9 and Headache R51.9 [facility] [address] [place] [address] 08/31/2024 [facility] Headache R51.9 and Obesity (BMI 30-39.9) E66.9 [facility] [address] [place] [address] 09/28/2024 [facility] Obesity (BMI 30-39.9 ) E66.9 and Headache R51.9 [facility] [address] [place] [address] 10/11/2024 Monik Prakash Acute otitis externa of right ear H60.501 and Vaginal yeast infection B37.31 [facility] [address] [place] [address] 10/18/2024 Monik Prakash Acute otitis media with effusion of right ear H65.191 [facility] [address] [place] [address] 12/20/2024 Monik Prakash Acute cystitis with hematuria N30.01 ; Acute flank pain R10.9 ; Callus of heel L84 ; Screening for diabetes mellitus Z13.1 ; Screening for thyroid disorder Z13.29 and Lipid screening Z13.220 [facility] [address] [place] [address] 10/24/2024 Monik Prakash Acute otitis media with effusion of right ear H65.191 [facility] [address] [place] [address] 12/21/2024 [facility] [address] [place] [address] 01/10/2025 Monik Prakash Callus of heel L84 Assessments Encounter Date Diagnosis (ICD Code) Assessment Notes Treatment Notes Treatment Clinical Notes Section Notes 08/10/2024 Encounter for immunization (ICD-10 - Z23) 08/31/2024 Obesity (BMI 30-39.9) (ICD-10 - E66.9) drink zero calories 08/31/2024 Headache (ICD-10 - R51.9) topamax 10/11/2024 Acute otitis externa of right ear (ICD-10 - H60.501) Steroid injection given. Increase fluids, take medication as directed. RTC if no improvement with treatment. 10/11/2024 Vaginal yeast infection (ICD-10 - B37.31) 10/18/2024 Acute otitis media with effusion of right ear (ICD-10 - H65.191) Finish antibiotics given last visit. Take Mucinex D as directed, recheck 1 week, if no improvement will refer to ENT. 10/24/2024 Acute otitis media with effusion of right ear (ICD-10 - H65.191) 12/20/2024 Acute cystitis with hematuria (ICD-10 - N30.01) Increase water intake, take medication as directed. RTC if no improvement with treatment. Questions asked and answered; discharged to home. 12/20/2024 Acute flank pain (ICD-10 - R10.9) 08/10/2024 Depression screen (ICD-10 - Z13.31) 01/10/2025 Callus of heel (ICD-10 - L84) 09/28/2024 Obesity (BMI 30-39.9) (ICD-10 - E66.9) intermittant fasting 09/28/2024 Headache (ICD-10 - R51.9) topamax 12/20/2024 Callus of heel (ICD-10 - L84) Use foot cream and pumice stone, if not improvement will consider referral to Podiatry. 08/10/2024 Immunization not carried out because of patient refusal (ICD-10 - Z28.21) 08/10/2024 Hip pain (ICD-10 - M25.559) diclofenac 12/20/2024 Screening for diabetes mellitus (ICD-10 - Z13.1) 08/10/2024 Obesity (BMI 30-39.9) (ICD-10 - E66.9) intermittant fasting 12/20/2024 Screening for thyroid disorder (ICD-10 - Z13.29) 12/20/2024 Lipid screening (ICD-10 - Z13.220) 08/10/2024 Headache (ICD-10 - R51.9) topamax 08/10/2024 Other Questions asked and answered; discharged to home. 08/31/2024 Other Questions asked and answered; discharged to home. 09/28/2024 Other Questions asked and answered; discharged to home. 12/20/2024 Other Venipuncture performed. Right arm. One attempt. Pt tolerated well, bleeding controlled with light dressing.Yolanda Bello LPN Plan Of Treatment No Information Insurance Providers Payer Name Payer Address Payer Phone Subscriber Number Group Number Insured Name Patient Relationship to Insured Coverage Start Date Coverage End Date [facility] [employer] [address] [place] [address] [id number] Olga Nair Self - patient is the insured Medications Administered Medication Instructions Date of Administration Dosage Notes DEPO-Medrol 10/11/2024 40 mg [id number] [id number] tolerated well. dexAMETHasone 10/11/2024 4 mg [id number] tolerated well. Rocephin 05/22/2022 1 g [facility]: [id number] Patient tolerated well, advised to wait 20 min at clinic Medical (General) History Medical History History ICD Code anxiety depression Surgical History Surgery Date(Month/Year) section tubal ligation Hospitalization History Reason Date(Month/Year) childbirth
--- OUTSIDE RECORDS SUMMARY | 2025-02-22 17:53 | XMS_ITS | Clinical Summary ---
Author Organization [facility] Address [address] [place] [address] Care Team Providers Care Miter Grinder Operator Name Role Phone Unavailable Primary Care Provider Unavailabl e Allergies Active Allergy Reactions Criticality Noted Date Comments Ciprofloxacin Diarrhea,Nausea and Vomiting Low 05/11 Medications cetirizine (ZyrTEC) 10 mg tablet Take 1 Tablet by mouth daily. 4 Active fluticasone propionate (FLONASE) 50 mcg/spray Garretson, Suspension nasal inhaler use 2 spray(s) in each nostril twice daily 4 Active omeprazole (PriLOSEC) 40 mg Capsule, Delayed Release(E.C.) take 1 capsule by mouth once daily before a meal 5 Active tiZANidine (ZANAFLEX) 4 mg Tablet TAKE 1 TABLET BY MOUTH EVERY 6 TO 8 HOURS NEEDED . DO NOT EXCEED 3 PER 24 HOURS FOR AGITATION 4 Active Active Problems Problem Noted Date Diagnosed Date Arthritis Encounters Date Type Department Care Team Description 12/12/2024 External Device Data [facility] ABSTRACTION Provider, Abstract 11/22/2024 External Device Data [facility] ABSTRACTION Provider, Abstract 11/22/2024 External Device Data [facility] ABSTRACTION Provider, Abstract from Last 3 Months Social History Tobacco Use Types Packs/Day Years Used Date Smoking Tobacco: Never Smokeless Tobacco: Never Tobacco Cessation:Counseling Given: Not Answered Alcohol Use Standard Drinks/Week Comments Not Currently 0 (1 standard drink = 0.6 oz pur e alcohol) Comments Unknown Sex and Gender Information Value Date Recorded Sex Assigned at Not on file Legal Sex Female 2:20 PM CDT Gender Identity Not on file Sexual Orientation Not on file Last Filed Vital Signs Vital Sign Reading Time Taken Comments Blood Pressure 110/70 06/07/2024 8:34 AM AVIATION OPERATIONS SPECIALIST Pulse 100 06/07/2024 8:34 AM AVIATION OPERATIONS SPECIALIST Temperature - - Respiratory Rate - - Oxygen Saturation - - Inhaled Oxygen Concentration - - Weight 93.4 kg (206 lb) 06/07/2024 8:34 AM AVIATION OPERATIONS SPECIALIST Height 167.6 cm (5' 6 ) 06/07/2024 8:34 AM AVIATION OPERATIONS SPECIALIST Body Mass Index 33.25 06/07/2024 8:34 AM AVIATION OPERATIONS SPECIALIST Plan of Treatment Health Maintenance Due Date Last Done Comments Pre-Diabetes and Diabetes Screening 1981 DTAP/TDAP/TD VACCINES (2 - Tdap) 12/24/1995 12/22/18 96 HEPATITIS B VACCINES (2 of 3 - 3-dose series) 04/02/19 98 03/05/1998 HPV/Cotest (21-29) 2002 HPV VACCINES (1 - 3-dose SCDM series) 02/21/2008 CERVICAL CANCER SCREENING 2011 HPV/Cotest (30-65) 2011 PAP SMEAR 2011 BREAST CANCER SCREENING 2021 INFLUENZA VACCINE (#1) 2024 Insurance [facility] PLAN [facility] [id number]
[2025-02-22 18:06] LABS: Glucose Urine UA Negative (Normal); Nitrate Urine Positive (Negative); Specific Gravity, Urine 1.021 (1.005-1.030)
[2025-02-22 19:37] LABS: Hematocrit 42.0 % (36-47); Hemoglobin 13.90 g/dL (11.27-16.99); Mean Corpuscular HGB Conc 33.1 g/dL (30-55); Mean Corpuscular Hemoglobin 28.1 pg (27-33); Mean Corpuscular Volume 85.0 fl (85-98); Nucleated Red Blood Cells % 0 %; Platelet Count 333 10^3/cmm (157-399); Red Blood Count 4.94 10^6/uL (3.85-5.65); White Blood Count 15.25 10^3/uL (3.29-11.43)
--- NOTE | 2025-02-22 19:37 | CTR_ITS ---
PROCEDURE INFORMATION: Exam: CT Abdomen And Pelvis Without Contrast Exam date and time: 02/22/2025 8:13 PM Age: 45 years old Clinical indication: Abdominal pain; Flank; Right; Additional info: R flank pain TECHNIQUE: Imaging protocol: Computed tomography of the abdomen and pelvis without contrast. Radiation optimization: All CT scans at this facility use at least one of these dose optimization techniques: automated exposure control; mA and/or kV adjustment per patient size (includes targeted exams where dose is matched to clinical indication); or iterative reconstruction. COMPARISON: CT pelvis wo con [id number] 05/22/2023 11:19 AM RADIATION DOSE METRICS: Total DLP (mGy-cm): 833.13 FINDINGS: Liver: Stable hepatomegaly. No mass. Gallbladder and biliary ducts: The gallbladder is surgically absent. No significant biliary ductal dilatation. Pancreas: Normal. No ductal dilation. Spleen: Normal. No splenomegaly. Adrenal glands: Normal. No mass. Kidneys and ureters: No renal stones, hydronephrosis or hydroureter. No ureteral stones. Stomach and bowel: Scattered colon diverticula. No inflammatory change identified involving the GI tract. No signs of bowel obstruction. Appendix: No evidence of appendicitis. Intraperitoneal space: Unremarkable. No free air. No significant fluid collection. Vasculature: Unremarkable. No abdominal aortic aneurysm. Lymph nodes: Unremarkable. No enlarged lymph nodes. Urinary bladder: Unremarkable as visualized. Reproductive: Unremarkable as visualized. Bones/joints: Unremarkable. No acute fracture. Soft tissues: Small periumbilical hernia containing fat only. CT/CT kidney stone [id number] IMPRESSION: No acute abnormality.
--- NOTE | 2025-02-22 19:37 | ED_ITS ---
HPI - Abdominal Pain 2 General: Chief Complaint: Abdominal Pain Stated Complaint: Peeing Blood Lower back Pain Time Seen by Provider: 02/22/25 19:35 Source: patient Mode of arrival: ambulatory Limitations: no limitations History of Present Illness: 45-year-old female states that at 3 PM simi luna started having right sided flank pain that started suddenly. States been sharp in nature rates the pain a 9 out of 10 has had some nausea denies any vomiting she denies any fever states she is had increased urinary frequency along with some hematuria no history of kidney stones denies any vaginal discharge. Related Data Home Medications ?Medication ?Instructions ?Recorded ?Confirmed diclofenac sodium 75 mg 75 mg PO Q12H 01/15/2502/07 tablet,delayed release Previous Rx's ?Medication ?Instructions ?Recorded omeprazole 20 mg capsule,delayed See Rx Instructions . Route 10/29/23 release .COMPLEX #60 caps semaglutide 0.25 mg or 0.5 mg (2 0.25 mg (0.368 mL) COLON BCUT .weekly 01/15/25 mg/3 mL) subcutaneous pen injector #3 mL (Kwaab) cetirizine 10 mg capsule (Zyrtec) 10 mg PO DAILY PRN a llergy 01/16/25 symptoms #30 caps cephalexin 500 mg capsule 500 mg PO TID 7 days #21 cap s 02/22/25 ondansetron 4 mg disintegrating 4 mg PO Q6H PRN nausea and 02/22/25 tablet vomiting #14 tabs Allergies Allergy/AdvReac Type Severity Reaction Status Date / Time No Known Allergies Allergy Verified 02/07/25 06:49 Review of Systems 2 : Reports: flank pain PFSH ED 2 PFSH: Medical History Obesity (BMI 30.0-34.9) Helicobacter pylori gastritis Cholelithiasis GERD (gastroesophageal reflux disease) Surgical History History of laparoscopic cholecystectomy 2022 History of esophagogastroduodenoscopy History of tubal ligation 2011 History of 2011 No history of previous surgery Family History Grandmother Cancer Breast cancer age 65 Denies family history of Diabetes CAD (coronary artery disease) Dementia Chronic kidney disease (CKD) Anesthesia complication Bleeding disorder Lung disease Stroke Social History Smoking and tobacco/nicotine status: never used tobacco/nicotine Second hand smoke exposure: No Alcohol intake: former Substance/Drug Use: former Adopted: No Caregiver/support person: No (spouse) Lives independently: Yes Household members: children Housing: House Marital status: Number of children: 6 service: No Current occupational status: employed Current occupation: [employer] Current occupational exposures/hazards: No Pets and animals: Yes Pets & animals: dog(s) Do you think of yourself as: Straight/Heterosexual Current gender identity: Female Special jaydon needs: No Physical Exam 2 Const: COMMON NORMALS: no acute distress, patient oriented x3 and healthy appearing HENMT: COMMON NORMALS: normocephalic and atraumatic HEAD & SCALP: n ormocephalic and atraumatic Eye: COMMON NORMALS: conjunctivae normal CONJUNCTIVA: Yes conjunctivae normal Neck/C-Spine: COMMON NORMALS: full ROM and supple Chest: COMMONS NORMALS: normal inspection of the chest Resp: COMMON NORMALS: normal respiratory effort Cardio: COMMON NORMALS: regular rate, regular rhythm and No murmurs present (Cardio) RATE: regular rate RHYTHM: regular rhythm GI: COMMON NORMALS: Normal to inspection, nondistended, normoactive bowel sounds present, Soft to palpation, non-tender and no masses PALPATION: Yes Soft to palpation Extremity: COMMON NORMALS: normal to inspection and full ROM Neuro: COMMON NORMALS: patient oriented x3, moves all extremities and no focal motor deficits Psych: COMMON NORMALS: mental status grossly normal, Normal thought process present and cooperative THOUGHT PROCESS: Normal thought process present Skin: COMMON NORMALS: no rashes or lesions noted and no wounds GENERAL SKIN EXAM: no rashes or lesions noted Course 2 Vital Signs: Vital signs: Vital Signs Temperature 97.6 F 02/22/25 17:49 Pulse Rate 82 02/22/25 19:58 Respiratory Rate 18 02/22/25 17:49 Blood Pressure 126/55 02/22/25 19:58 Pulse Oximetry 100 02/22/25 19:58 Oxygen Delivery Me thod Room Air 02/22/25 19:58 MDM - Abdominal Pain Medical Decision Making Patient presents here with flank pain along with dysuria that started today. Differential included kidney stone, acute cystitis. Patient CT scan here showed no signs of kidney stone or other findings. Does have a mildly elevated white count along with UTI. She has had no vomiting here vitals here been normal no signs of being septic. She feels much improved did give her IM Rocephin here. Will prescribe her Keflex along with Zofran. She is to follow-up with her PCP and return if worsening she understands agrees to plan. Did go over labs along with CT with patient as well. Medical Records I reviewed the patient's medical records. Lab Data I reviewed the patient's lab results. 02/22/25 19:02/22/25 19:25 Labs/Radiology: Radiology Impressions Abdomen/Pelvis CT 02/22/25 19:37 IMPRESSION: No acute abnormality. Laboratory Results WBC 15.25 10^3/uL (3.29-11.43) H 02/22/25: RBC 4.94 10^6/uL (3.85-5.65) 02/22/25 19: Hgb 13.90 g/dL (11.27-16.99) 02/22/25 19: Hct 42.0 % (36-47) 02/22/25: MCV 85.0 fl (85-98) 02/22/25 19: MCH 28.1 pg (27-33) 02/22/25 19: MCHC 33.1 g/dL (30-55) 02/22/25: RDW 13.5 % (12.1-15.1) 02/22/25 19: Plt Count 333 10^3/cmm (157-399) 02/22/25 19: MPV 10.0 fL (7.4-10.4) 02/22/25 19: Neut % (Auto) 73.7 % 02/22/25: Lymph % (Auto) 20.9 % 02/22/25: [place] % (Auto) 4.0 % 02/22/25: Eos % (Auto) 0.7 % 02/22/25: Baso % (Auto) 0.3 % 02/22/25: Neut # (Auto) 11.24 10^3/uL (1.8-7.7) H 02/22/25 19:25 Lymph # (Auto) 3.2 10^3/uL (0.8-4.8) 02/22/25 19:25 [place] # (Auto) 0.6 10^3/uL (0.2-0.9) 02/22/25 19:25 Eos # (Auto) 0.1 10^3/uL (0.0-0.8) 02/22/25 19:25 Baso # (Auto) 0.1 10^3/uL (0.0-0.1) 02/22/25 19:25 Nucleated RBC % (auto) 0 % 02/22/25:25 Nucleated RBCs # 0.0 /100WBC 02/22/25 19:25 Sodium 138 mmol/L (136-145) 02/22/25:25 Potassium 3.9 mmol/L (3.5-5.1) 02/22/25:25 Chloride 101 mmol/L (98-107) 02/22/25 19:25 Carbon Dioxide 24 mmol/L (22-29) 02/22/25 19:25 Anion Gap 16.9 (5-19) 02/22/25 19:25 BUN 13 mg/dL (6-20) 02/22/25:25 Creatinine 0.7 mg/dL (0.5-0.9) 02/22/25 19:25 GFR Calculation 90.9 mL/min (90-130) 02/22/25 19:25 Glucose 89 mg/dL (65-115) 02/22/25:25 Calculated Osmolality 286 mOsm/kg (285-295) 02/22/25 19:25 Calcium 9.4 mg/dL (8.5-10.5) 02/22/25 19:25 Total Bilirubin 0.3 mg/dL (0.15-1.2) 02/22/25 19:25 AST 14 U/L (0-32) 02/22/25 19:25 ALT 9 U/L (0-33) 02/22/25 19:25 Alkaline Phosphatase 84 U/L (35-105) 02/22/25:25 Total Protein 7.9 g/dL (6.6-8.7) 02/22/25 19:25 Albumin 4.5 g/dL (3.5-5.2) 02/22/25 19:25 Globulin 3.4 g/dL (1.3-4.6) 02/22/25 19:25 Lipase 41 U/L (13-60) 02/22/25 19:25 Urine Color Yellow (Yellow) 02/22/25 17:50 Urine Appearance Cloudy (CLEAR) A 02/22/25 17:50 Urine pH 5.5 (5-7) 02/22/25 17:50 Ur Specific [place] 1.021 (1.005-1.030) 02/22/25 17:50 Urine Protein Trace (Negative) A 02/22/25 17:50 Urine Glucose (UA) Negative (Normal) 02/22/25 17:50 Urine Ketones Negative (Negative) 02/22/25 17:50 Urine Blood 3+ (Negative) A 02/22/25 17:50 Urine Nitrate Positive (Negative) A 02/22/25 17:50 Urine Bilirubin Negative (Negative) 02/22/25 17:50 Urine Urobilinogen 1.0 mg/dL (Negative) 02/22/25 17:50 Ur Leukocyte Esterase 2+ (Negative) A 02/22/25 17:50 Urine RBC >100 /hpf (0-2) H 02/22/25 17:50 Urine WBC >100 /hpf (0-5) H 02/22/25 17:50 Ur Squamous Epith Cells 0-5 /hpf (0-5) 02/22/25 17:50 Amorphous Sediment Not Reportable 02/22/25 17:50 Urine Bacteria 1+ /hpf (NONE) H 02/22/25 17:50 Hyaline Casts 1.65 /lpf 02/22/25 17:50 All radiology interpretation(s) finalized by discharge Discharge Plan Discharge Patient Disposition: Home Clinical Impression: Acute cystitis Qualifiers: Hematuria presence: with hematuria Qualified Code(s): N30.01 - Acute cystitis with hematuria Condition: Stable Prescriptions: New cephalexin 500 mg capsule 500 mg PO TID 7 Days Qty: 21 0RF ondansetron 4 mg tablet,disintegrating 4 mg PO Q6H PRN (Reason: nausea and vomiting) Qty: 14 0RF No Action diclofenac sodium 75 mg tablet,delayed release (DR/EC) 75 mg PO Q12H Ozempic 0.25 mg or 0.5 mg (2 mg/3 mL) pen injector 0.25 mg SUBCUT .weekly Qty: 3 0RF Rx Instructions: BMI 32.4% omeprazole 20 mg capsule,delayed release(DR/EC) See Rx Instructions .ROUTE .COMPLEX Qty: 60 0RF Dose Instruction: Take 1 capsule by mouth twice daily Rx Instructions: Take 1 capsule by mouth twice daily Zyrtec 10 mg capsule 10 mg PO DAILY PRN (Reason: allergy symptoms) Qty: 30 11RF Discharge Orders: Discharge ED (Routine); Ordered 02/22/25 Ordered By: Robe Amaro Referrals: Geraldine Miles FNP-C [Primary Care Provider, Family Practice] - 4-7 days Discharge Diet: Advance as tolerated Discharge Activity: Resume usual activity Patient Instructions: Urinary Tract Infection in Women (ED) Print Language: Egyptian Coding Level of Care Code 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
[2025-02-22 19:58] VITALS: BP 126/55; PULSE 82; O2SAT 100
[2025-02-22 20:01] LABS: Alanine Aminotransferase 9 U/L (0-33); Albumin Level 4.5 g/dL (3.5-5.2); Alkaline Phosphatase 84 U/L (35-105); Anion Gap 16.9 (5-19); Aspartate Amino Transferase 14 U/L (0-32); Blood Urea Nitrogen 13 mg/dL (6-20); Calcium 9.4 mg/dL (8.5-10.5); Carbon Dioxide 24 mmol/L (22-29); Chloride 101 mmol/L (98-107); Creatinine Clr Calc Pharmacy 115.1816; Globulin 3.4 g/dL (1.3-4.6); Glucose 89 mg/dL (65-115); Lipase 41 U/L (13-60); Osmolality Calculated 286 mOsm/kg (285-295); Potassium 3.9 mmol/L (3.5-5.1); Sodium 138 mmol/L (136-145); Total Protein 7.9 g/dL (6.6-8.7)
[2025-02-22] MEDS: cefTRIAXone 1,000 MG in water for injection-sterile 2.1 ML 2.1 MG IM (21:25)
== END 2025-02-22 21:29 | disposition home or self-care (01) ==
PROVIDERS: Family Medicine; Emergency Provider Emergency Medicine; PCP Nurse Practitioner Family
DX: N30.01 Acute cystitis with hematuria (principal)
CPT/HCPCS: 36415; 74176; 80053; 81001; 83690; 85025; 87077; 87086; 87186; 96372; 99284; J0696

== ENCOUNTER 2025-03-21 12:15 | Outpatient (CLI) | payer MEDICAID, SELFPAY ==
--- NOTE | 2025-03-21 12:26 | XR_ITS ---
WS: [id number] Exam: XR shoulder RT min 2V* [id number] Date/Time of Exam: 03/21/2025 12:35 PM Reason For Exam: SHOULDER PAIN DLP: No fracture or dislocation. The joints are preserved. Normal soft tissues. XR/XR shoulder RT min 2V* [id number] IMPRESSION: 1. Negative RIGHT shoulder.
--- NOTE | 2025-03-21 12:26 | XR_ITS ---
WS: [id number] Exam: XR thoracic spine 2V [id number] Date/Time of Exam: 03/21/2025 12:35 PM Reason For Exam: BACK PAIN Comparison 01/30/2020. No fracture or malalignment. Paraspinal soft tissues are unremarkable. Minimal spondylosis. No scoliosis. XR/XR thoracic spine 2V [id number] IMPRESSION: 1. Negative thoracic spine study.
== END 2025-03-21 12:16 | disposition home or self-care (01) ==
PROVIDERS: PCP Nurse Practitioner Family; Visit Provider Nurse Practitioner Family
DX: M54.9 Dorsalgia, unspecified (principal); M25.511 Pain in right shoulder
CPT/HCPCS: 72070; 73030